=== PATIENT | male | born 1975 | race Caucasian/White ===

== ENCOUNTER 2020-07-24 12:48 | Outpatient (CLI) | payer BC, SELFPAY ==
--- NOTE | 2020-07-24 12:50 | ECG_ITS ---
Measurements Intervals [place] Rate: 72 P: 63 MT: 166 QRS: 55 QRSD: 89 T: 46 QT: 359 QTc: 395 Interpretive Statements SINUS RHYTHM BASELINE ARTIFACT- I, II, III, AVR, AVL, AVF NORMAL ECG Electronically Signed On 07-24-2020 13:13:02 TERRITORY SALES CONSULTANT by Sergio Matute D.O.
[2020-07-24 13:27] LABS: Alanine Aminotransferase 30 U/L (4-50); Albumin Level 4.7 g/dL (3.5-5.1); Alkaline Phosphatase 47 U/L (38-126); Amylase 66 U/L (30-110); Aspartate Amino Transferase 26 U/L (17-59); Bilirubin,Total 0.9 mg/dL (0.2-1.3); Lipase 162 U/L (23-300)
== END 2020-07-24 12:49 | disposition home or self-care (01) ==
PROVIDERS: PCP Family Medicine; Visit Provider Surgery
DX: K82.4 Cholesterolosis of gallbladder (principal); I10 Essential (primary) hypertension; Z01.818 Encounter for other preprocedural examination
CPT/HCPCS: 36415; 80076; 82150; 83690; 86850; 86900; 86901; 93005

== ENCOUNTER 2020-07-26 00:31 | Outpatient (CLI) | payer BC, SELFPAY ==
[2020-07-26 17:38] LABS: SARS-CoV-2 RNA PCR Negative
== END 2020-07-26 00:32 | disposition home or self-care (01) ==
LOC: ANHCOVIDDT 00:31
PROVIDERS: PCP Family Medicine; Visit Provider Surgery
DX: K82.4 Cholesterolosis of gallbladder (principal); Z01.818 Encounter for other preprocedural examination; Z20.822 Contact with and (suspected) exposure to COVID-19
CPT/HCPCS: C9803; U0003; U0005

== ENCOUNTER 2020-07-29 01:59 | Day surgery (SDC) | payer BC, SELFPAY ==
[2020-07-22 16:04] VITALS: BMI 27.6
[2020-07-29] VITALS (8 sets, daily range): BP systolic 107–137; BP diastolic 54–86; PULSE 52–98; RESP 12–21; TEMP 36.6; O2SAT 92–100
[2020-07-29] MEDS: ACETAMINOPHEN 500 MG TABLET 1000 MG PO (07:27)
[2020-07-29] MEDS: LACTATED RINGERS 1,000 ML 30 ML IV CONT ×2 (07:54→10:47)
[2020-07-29] MEDS: KETOROLAC 15 MG/ML VIAL (*BKC) IV PUSH (07:58)
--- NOTE | 2020-07-29 08:42 | P.PNAN_ITS ---
Anes - Initial Pre Proc Eval Procedure: Operation Date: 07/29/20 09:00 Proposed Procedures p Laparoscopic Cholecystectomy - Rl Moreland DO Date/Time: 07/29/20 08:42 Surgeon: Rl Moreland DO Pre Op Diagnosis: Right Upper Quadrant Pain Patient Data Age: 45 Gender: M Height: 5 ft 7 in Weight: 83.8 kg Last Vital Signs Temp 97.9 F 07/29/20 07:02 Pulse 73 07/29/20 07:02 Resp 14 07/29/20 07:02 BP 133/81 07/29/20 07:02 Pulse Ox 100 07/29/20 07:02 Allergies Allergy/AdvReac Type Severity Reaction Status Date / Time naproxen [From Naprosyn] AdvReac Mild Abdominal Verified 07/29/20 07:18 Pain Home Medications Medication Instructions Recorded Confirmed Type lisinopril 10 mg tablet 10 mg PO HS 06/25/20 07/29/20 History propranolol 10 mg tablet 10 mg PO TID PRN 06/25/20 07/29/20 History Patient hx anesthesia problems: none Family hx anesthesia problems: none PMFSH Past Medical History Medical History High cholesterol History of thyroid disorder Hypertension Surgical History Surgical History History of appendectomy History of elbow surgery ulnar nerve right elbow History of eye surgery History of tonsillectomy History of vasectomy Family History Family History Father Family history of malignant neoplasm Family history of suicide Grandparent Family history of malignant neoplasm Hypertension Other Depression Family history of mental disorder Family history of rheumatoid arthritis Social History Social History Smoking status: Never smoker Second hand tobacco smoke exposure: No Alcohol intake: former Living arrangements: with family 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 Questions were solicited and answers provided to the satisfaction of the patient/family/POA.
--- NOTE | 2020-07-29 09:21 | SUR.PREOP ---
0830 pt updated delay in procedure.
--- NOTE | 2020-07-29 09:30 | WPDHPUPDATE1 ---
History and Physical Update Update Date/Time: 07/29/20 09:30 History and Physical has been reviewed, including an updated exam of the patient. Since being seen in office, patient has decided he wants to proceed with surgery. I have recommended laparoscopic cholecystectomy, possible open. Risks, benefits, and alternatives have been discussed and questions answered. Patient agrees to proceed with procedure.
[2020-07-29] MEDS: ceFAZolin 2 GM/D5W 50 ML 2 GM/50 ML BAG IVPB (09:52)
--- NOTE | 2020-07-29 09:56 | SUR.PREOP ---
0950 taken to bathroom to void
[2020-07-29] MEDS: BUPIVACAINE/EPINEPHRINE 0.5% 10 ML VIAL 30 ML INFILTRATE (10:07)
--- NOTE | 2020-07-29 10:40 | PM.PROC ---
Procedure Note - Detailed Date of procedure: 07/29/20 Pre-op diagnosis: Right Upper Quadrant Pain, Gallbladder polyp Post-op diagnosis: same Procedure performed: Laparoscopic Cholecystectomy Description of procedure: Procedure as well as risks, benefits, and alternatives were discussed with patient. Written consent was obtained and placed in chart prior to procedure. The patient was brought back to surgical suite. Patient was placed in supine position on operating table. Time-out was done to confirm patient and procedure. Patient was then intubated by the anesthesia department. Abdomen was prepped and draped in sterile fashion using chlorhexidine prep. 0.5% bupivacaine with epinephrine was infiltrated at each site of incision. An 11 millimeter vertical incision was made at the inferior portion of the umbilicus using a 15 blade scalpel. Blunt dissection was carried down to the linea alba. The linea alba was then incised using a 15 blade scalpel. The peritoneum was then bluntly entered. An 11 millimeter trocar was inserted and cabon dioxied insuflation was used to create a pneumoperitoneum. The camera was inserted and the abdomen was inspected. The patient was placed in reverse Trendelenberg position and rotated slightly to the left. A 5 millimeter incision was made in the epigastric region, and a 5 millimeter trocar was inserted under direct visualization. Two 5 millimeter incisions were made in the right upper quadrant, and two 5 millimeter trocars were inserted under direct visualization. The gallbladder was identified and grasped at the fundus and retracted superiorly. It was then grasped at the infundibulum retracted laterally. Careful dissection around the neck of the gallbladder was performed using blunt dissection with a [place] grasper and hook electrocautery. The cystic duct was identified, and a window was created behind it. The cystic artery was also identified and a window was created behind it. The critical view of safety was identified, visualizing the cystic duct running directly into the neck of the gallbladder, and the cystic artery running directly into the wall of the gallbladder. A 5 millimeter clip claims vice president was then used to place 2 clips proximally and 1 clip distally on both the cystic duct and cystic artery. They were then both transected using endoscopic scissors. Once safely away from the yeni hepatitis, the gallbladder was dissected free from the liver bed using hook electrocautery. Hemostasis was achieved along the way. The gallbladder was removed completely and then removed through the subxiphoid port. The liver bed was then inspected. Hemostasis appeared adequate, and our clips appeared secure. The area was gently irrigated with sterile saline. No other abnormalities were seen. The patient was flattened out in bed, and 1 final inspection was made around the abdominal cavity. The ports were then removed under direct visualization, the camera was removed, and the pneumoperitoneum was released. The fascia of the umbilical incision was approximated using an 0 Vicryl [id number] suture. The skin of the incisions was approximated using 4-0 Monocryl subcuticular sutures. Exofin glue was applied on top. The patient was then awakened from anesthesia, extubated, and transferred to recovery. Anesthesia: GETA and local (0.5% bupivicaine with epinephrine) Surgeon: Rl Moreland DO Estimated blood loss (mL): 5 Pathology: yes Complications: No immediate complications Condition: stable Disposition: same day Findings: This is a 45-year-old man who presented with intermittent right upper quadrant pain over the past several years. He did not recognize any foods that triggered his pains, but he continues to have intermittent symptoms. A gallbladder ultrasound showed evidence of gallbladder sludge and a gallbladder polyp. Discussions were made with the patient about treatment options, a and decision was made to proceed wi
[2020-07-29] MEDS: fentaNYL CITRATE INJ (*CRX) 100 MCG/2 ML VIAL 25 MCG IV PUSH ×4 (11:06→11:26)
[2020-07-29] MEDS: oxyCODONE HCL (*CRX) 5 MG TAB IR PO (11:48)
== END 2020-07-29 12:37 | disposition home or self-care (01) ==
PROVIDERS: PCP Family Medicine; Visit Provider Surgery
PROC: 0FT44ZZ Resection of Gallbladder, Percutaneous Endoscopic Approach (ICD-10-PCS; CPT 47562; principal; 2020-07-29 09:00)
DX: K81.1 Chronic cholecystitis (principal); I10 Essential (primary) hypertension
CPT/HCPCS: 47562; 88304; A9270; J0690; J1100; J1885; J2250; J2405; J2704; J2710; J3010; J7030; J7120

== ENCOUNTER → 2021-07-26 00:15 | Outpatient (CLI) | payer BC, SELFPAY ==
[2021-07-26 20:22] LABS: SARS-CoV-2 RNA PCR Positive
== END ==
PROVIDERS: PCP Family Medicine; Visit Provider Family Medicine
DX: U07.1 COVID-19 (principal)
CPT/HCPCS: C9803; U0003; U0005

== ENCOUNTER 2022-06-20 10:43 | Emergency (ER) | payer BC, SELFPAY ==
[2022-06-20 10:55] VITALS: BP 144/85; PULSE 81; RESP 24; TEMP 36.4
--- NOTE | 2022-06-20 11:14 | ED.URI ---
HPI - URI/Sore Throat General Chief Complaint: Upper Respiratory Infection Stated Complaint: Sore Throat,Lt Ear Irritation Time Seen by Provider: 06/20/22 11:14 History of Present Illness HPI Narrative: 46-year-old male presented for complaint of sore throat for about 4 days and left irritation. He also endorses mild sinus congestion and drainage. He reports his child tested positive for strep about 2 weeks ago. He is taking ibuprofen for symptoms. He denies cough, shortness cough, wheezing, nausea, vomiting diarrhea, fevers or chills at this time. Related Data Home Medications Medication Instructions Recorded Confirmed lisinopril 10 mg tablet 10 mg PO HS 06/25/20 06/20/22 propranolol 10 mg tablet 10 mg PO TID PRN PALPITATIONS 06/25/20 06/20/22 suvorexant 20 mg tablet (Belsomra) 20 mg PO HS 06/20/22 06/20/22 Allergies Allergy/AdvReac Type Severity Reaction Status Date / Time naproxen [From Naprosyn] AdvReac Mild Abdominal Verified 06/20/22 10:59 Pain Review of Systems Review of Systems: CONSTITUTIONAL: Denies body aches, fever, chills, or sweats. EYES: Denies visual changes, redness, or discharge. ENT: Per HPI CARDIOVASCULAR: Denies chest pain, palpitations, or edema. RESPIRATORY: Denies dyspnea. GASTROINTESTINAL: Denies abdominal pain, nausea, vomiting, or diarrhea. SKIN: Denies rash, itching, or wounds. MUSCULOSKELETAL: Denies back pain, joint pain, or myalgia. NEUROLOGIC: Denies headache PMFSH Past Medical History Medical History High cholesterol History of thyroid disorder Hypertension Surgical History Surgical History History of appendectomy History of elbow surgery ulnar nerve right elbow History of eye surgery History of tonsillectomy History of vasectomy Hx laparoscopic cholecystectomy 07/29/20 Family History Family History Father Family history of malignant neoplasm Family history of suicide Grandparent Family history of malignant neoplasm Hypertension Other Depression Family history of mental disorder Family history of rheumatoid arthritis Social History Social History Smoking status: Never smoker Second hand tobacco smoke exposure: No Alcohol intake: former 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 EYES: conjunctivae clear ENT: Mucous membranes moist. TMs pearly mendoza with normal light reflex bilaterally; no tragal tenderness. Oropharynx mildly erythematous without lesions. Tonsils absent. No drooling, no hoarseness, no trismus, uvula midline. No tripod positioning, hot potato voice, or soft palate swelling. NECK: Supple. No lymphadenopathy CHEST: Clear to auscultation, breath sounds equal. No respiratory distress, speaks in full sentences. HEART: Regular rate and rhythm. No murmur heard. SKIN: Warm, dry, no rash. NEURO: Alert and oriented x3. Course Course Emergency Course: Patient is aware of diagnosis, understands and agrees to treatment plan. Anticipatory guidance given. Patient agrees to follow-up as directed and is aware of reasons to seek care at the emergency department. Portions of this record may have been created with voice recognition software Level of Care: Express Care Visit Vital Signs Vital signs: Vital Signs Temperature 97.5 F L 06/20/22 10:55 Pulse Rate 81 06/20/22 10:55 Respiratory Rate 24 H 06/20/22 10:55 Blood Pressure 144/85 H 06/20/22 10:55 Oxygen Delivery Room Air 06/20/22 10:55 Temperature 97.5 F L 06/20/22 10:55 Pulse Rate 81 06/20/22 10:55 Respiratory Rate 24 H 06/20/22 10:55 Blood Pressure 144/85 H 06/20/22 10:55 Oxygen Delivery Room Air
== END 2022-06-20 11:25 | disposition home or self-care (01) ==
PROVIDERS: Emergency Provider Nurse Practitioner Family; PCP Nurse Practitioner Adult Health
DX: J06.9 Acute upper respiratory infection, unspecified (principal); E78.00 Pure hypercholesterolemia, unspecified; I10 Essential (primary) hypertension
CPT/HCPCS: 87081; 99212; G0463

== ENCOUNTER 2022-07-14 08:06 | Emergency (ER) | payer BC, SELFPAY ==
--- NOTE | ~2022-07-14 | XR_ITS ---
EXAMINATION: XR finger 4th RT min 2V DATE: 07/14/2022 08:30 INDICATION: Concern for infection at the right fourth digit 5 days post laceration TECHNIQUE: Dorsal palmar, lateral and 2 oblique views of the right fourth digit were obtained COMPARISON: None FINDINGS: Alignment is normal. No fracture. Joint spaces are normal. No cortical erosions to suggest osteomyeli tis. Asymmetric soft tissue swelling at the palmar/radial aspect of the distal phalanx of the right f ourth digit. No soft tissue gas or radiopaque foreign bodies. IMPRESSION: 1. No osseous abnormality. Reviewed, dictated and finalized at location A. M INSTALLER IMPRESSION: 1. No osseous abnormality.
[2022-07-14 08:13] VITALS: BP 124/84; PULSE 100; RESP 16; TEMP 36.6; O2SAT 100
--- NOTE | 2022-07-14 08:23 | ED.WOUNDLAC ---
HPI - Wound/Laceration General Chief Complaint: Wound/Laceration Stated Complaint: Cut Finger Rt Hand Time Seen by Provider: 07/14/22 08:18 Source: patient Mode of arrival: ambulatory Limitations: no limitations History of Present Illness HPI narrative: 46 y/o male presented for c/o laceration to right ring finger that occurred 5 days ago. 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 Reports 'profuse bleeding' at the time, so he used home super glue. Denies cleaning it prior, stating he 'thought the blood would internally cleanse it.' States glue came off a few days ago and he reapplied another layer of super glue. He has kept a bandaid on the site since the wound occurred. Now reports mild swelling and darkened discoloration surrounding the wound, and is concerned for infection. Denies warmth, redness, drainage, numbness, tingling or weakness to the finger. Patient completed a course of augmentin 3 days ago as prescribed 07/04 for URI. Last tetanus 2019. Related Data Home Medications Medication Instructions Recorded Confirmed lisinopril 10 mg tablet 10 mg PO HS 06/25/20 07/14/22 propranolol 10 mg tablet 10 mg PO TID PRN PALPITATIONS 06/25/20 07/14/22 suvorexant 20 mg tablet (Belsomra) 20 mg PO HS 06/20/22 07/14/22 Allergies Allergy/AdvReac Type Severity Reaction Status Date / Time naproxen [From Naprosyn] AdvReac Mild Abdominal Verified 07/14/22 08:08 Pain Review of Systems Review of Systems: CONSTITUTIONAL: Denies body aches, fever, chills, or sweats. EYES: Denies visual changes, redness, or discharge. ENT: Denies rhinorrhea, congestion CARDIOVASCULAR: Denies chest pain, palpitations, or edema. RESPIRATORY: Denies cough or dyspnea. GASTROINTESTINAL: Denies abdominal pain, nausea, vomiting, or diarrhea. SKIN: per HPI MUSCULOSKELETAL: Denies back pain, joint pain, or myalgia. NEUROLOGIC: Denies headache, numbness, tingling, or weakness. PMFSH Past Medical History Medical History High cholesterol History of thyroid disorder Hypertension Surgical History Surgical History History of appendectomy History of elbow surgery ulnar nerve right elbow History of eye surgery History of tonsillectomy History of vasectomy Hx laparoscopic cholecystectomy 07/29/20 Family History Family History Father Family history of malignant neoplasm Family history of suicide Grandparent Family history of malignant neoplasm Hypertension Other Depression Family history of mental disorder Family history of rheumatoid arthritis Social History Social History Smoking status: Never smoker Second hand tobacco smoke exposure: No Alcohol intake: former 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 Please see nursing chart for further information. There is no relevant family history pertinent to the presenting complaint Exam Narrative: GENERAL: Well-appearing EYES: conjunctivae clear, and EOMI. ENT: Mucous membranes moist. Oropharynx without edema, erythema or lesions. NECK: Supple. No lymphadenopathy CHEST: Clear to auscultation. HEART: Regular rate and rhythm. SKIN: Warm, dry. Right 4th digit linear lac 1.5cm to radial aspect of finger, edges are not approximated, appears to have clear firm substance over the site; mild swelling and purple discoloration surrounding the site; no active drainage or warmth, cap refill <3 seconds, sensation intact. full rom. NEURO: Alert and oriented x3. Course Course Emergency Course: Patient is aware of diagnosis, understands and a
== END 2022-07-14 08:58 | disposition home or self-care (01) ==
PROVIDERS: Emergency Provider Nurse Practitioner Family
DX: S61.214A Laceration without foreign body of right ring finger without damage to nail, initial encounter (principal); W26.8XXA Contact with other sharp object(s), not elsewhere classified, initial encounter; E78.00 Pure hypercholesterolemia, unspecified; I10 Essential (primary) hypertension; Z98.52 Vasectomy status
CPT/HCPCS: 73140; 99213; G0463

== ENCOUNTER 2023-06-29 10:33 | Outpatient (CLI) | payer BC, SELFPAY ==
--- NOTE | ~2023-06-29 | XR_ITS ---
EXAMINATION: XR lumbar spine min 4V DATE: 06/29/2023 11:01 INDICATION: Low back pain, unspecified. TECHNIQUE: 5 views of lumbar spine were obtained. COMPARISON: CT abdomen and pelvis 10/14/2015 FINDINGS: There is hypolordosis of lumbar spine. There is mild chronic anterior wedging of L1 vertebr al body. There is mildly decreased disc height at L4-L5. There are endplate osteophytes at most level s. There is multilevel facet joint osteoarthritis, severe bilaterally at L4-L5 and L5-S1. IMPRESSION: 1. Mild lumbar spondylosis. Reviewed, dictated and finalized at location E. ECTOR BRAKE LINING IMPRESSION: 1. Mild lumbar spondylosis.
== END 2023-06-29 10:34 | disposition home or self-care (01) ==
PROVIDERS: PCP Nurse Practitioner Family; Visit Provider Nurse Practitioner Family
DX: M79.604 Pain in right leg (principal); M79.605 Pain in left leg; R29.898 Other symptoms and signs involving the musculoskeletal system; M47.896 Other spondylosis, lumbar region
CPT/HCPCS: 72110

== ENCOUNTER 2023-07-12 06:32 | Outpatient (CLI) | payer BC, SELFPAY ==
--- NOTE | ~2023-07-12 | MR_ITS ---
MRI of the lumbar spine Clinical History: Back pain Technique: Axial T2-weighted images, and sagittal T1-weighted, T2-weighted, and and T2 fat-sat images were acquired. Findings: There is no fracture or subluxation of the lumbar spine. Vertebral bodies maintain normal h eight and alignment. No suspicious bone marrow signal abnormality seen. At L1-L2, there is minimal disc bulge and mild facet arthropathy. No central canal stenosis or defini te neural foraminal narrowing. At L2-L3, there is minimal disc bulge and mild to moderate facet arthropathy. No central canal stenos is or neural foraminal narrowing. L3-L4, there is mild disc bulge and mild facet arthropathy. No central canal stenosis. There is mild bilateral neural foraminal narrowing, left worse than right. At L4-L5, there is disc bulge and moderate facet arthropathy. No central canal stenosis. There is mod erate to advanced bilateral neural foraminal narrowing. At L5-S1, there is mild disc bulge and moderate facet arthropathy. No central canal stenosis. There i s moderate right neural foraminal narrowing, and mild to moderate left neural foraminal narrowing. Paravertebral soft tissues are unremarkable. Impression: Multilevel neural foraminal narrowing, as detailed above. Reviewed, dictated and finalized at location . 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
== END 2023-07-12 06:33 | disposition home or self-care (01) ==
PROVIDERS: PCP Nurse Practitioner Family; Visit Provider Nurse Practitioner Family
DX: M54.50 Low back pain, unspecified (principal); M79.604 Pain in right leg; M79.605 Pain in left leg; R29.898 Other symptoms and signs involving the musculoskeletal system; M51.36 Other intervertebral disc degeneration, lumbar region
CPT/HCPCS: 72148

== ENCOUNTER 2023-08-04 08:34 | Outpatient (CLI) | payer BC, SELFPAY ==
--- NOTE | 2023-08-06 11:58 | WPDHOLTEREM ---
Holter/Event Monitor Holter/Event Monitor Date of procedure: 08/04/23 Holter/Event Procedure: 24 Hr Holter Monitor Indications: Palpitations Conclusion: 1. 24 hour holter monitor on 08/04/23. 2. Underlying rhythm is sinus rhythm. HR range 50-171 bpm; average HR 81 bpm. HR at 171 bpm was at 01:52. 3. There are 45 premature supraventricular complex, 2 supraventricular couplets and 1 supraventricular triplet. No supraventricular tachycardia. 4. There are 590 premature ventricular complexes. No ventricular tachycardia. 5. No sinoatrial or atrioventricular blocks. No significant pauses greater than 2 seconds. 6. Patient reports symptoms of skip beat, pounding heart which demonstrate sinus rhythm, HR range 70-83 bpm and 1 PVC.
== END 2023-08-04 08:35 | disposition home or self-care (01) ==
LOC: ANHCARD 08:35
PROVIDERS: PCP Nurse Practitioner Family; Visit Provider Nurse Practitioner Family
DX: R00.2 Palpitations (principal); I10 Essential (primary) hypertension
CPT/HCPCS: 93225; 93226

== ENCOUNTER 2023-10-08 09:36 | Outpatient (CLI) | payer BC, SELFPAY ==
--- NOTE | 2023-10-12 14:20 | WPDHOMESLEEP ---
Sleep Study - Home Unattended Date of Study: 10/08/23 Ordering Provider: Sergio Matute DO Interpreting Provider: Ashely Coleman DO Home Sleep Study Type: Watch PAT Height: 1.7 m Weight: 78.018 kg Body Mass Index: 26.9 Neck Circumference (inches): 15 [place]: 7 Reason for Sleep Study Heart palpitations Sleep History The patient is a 48-year-old male with hypertension, insomnia, anxiety, heart palpitations, Gary's thyroiditis, degenerative disc disease of lumbar spine and erectile dysfunction that had a sleep study ordered by his tree expert for evaluation of sleep apnea. The patient rarely awakens from sleep short of breath. He denies awakening at night with heartburn, belching or cough. He occasionally snores but it is never loud enough that others complain. He occasionally has trouble sleeping when he has a cold. He occasionally wakes up gasping for air throughout the night. He denies having breathing problems at night observed by himself or others. He denies sweating excessively at night. He frequently has heart palpitations or irregular heartbeats during the night. He rarely falls asleep during the day but never while driving. He denies cataplexy. He rarely has trouble at school or work due to sleepiness. He rarely feels unable to move while waking up or falling asleep. He occasionally experiences vivid dreamlike scenes upon awakening or falling asleep. He rarely feels afraid of going to sleep. He frequently has nightmares. He frequently remembers his dreams. He frequently has thoughts racing through his mind. He occasionally feels sad or depressed. He frequently has anxiety. He rarely has muscular tension. He rarely notices parts of his body jerk. He denies kicking during the night. He denies having crawling and aching feelings in his legs and denies having leg pain during the night. He occasionally grinds his teeth during sleep but never awakens with morning jaw pain. He is frequently bothered by pain during the day but rarely awakened by pain during the night. He occasionally wakes up feeling stiff in the morning. He denies waking up with sore or achy muscles. He frequently wakes up with pain in the neck, spine and other joints. He goes to bed at 9:00 p.m. on weekdays and between 10 30-11 p.m. on the weekends. It takes him 20-30 minutes to fall asleep. He wakes up twice throughout the night to urinate and is able to fall back asleep within 5 minutes. He will occasionally wake up screaming. He wakes up at 3:50 a.m. on weekdays and 7:00 a.m. on the weekends. He typically gets 6.5 hours of sleep per night. He will stay in bed for a few minutes after waking up in the morning. He currently lives with his and 5 children. He denies consuming any caffeinated beverages within 2 hours of bedtime. He denies engaging in physical exercise before bedtime. He will read before falling asleep. He denies watching television before falling asleep. He denies taking naps in the afternoon the evening He consumes 1 cup of caffeinated beverage 3 times per week. He denies tobacco, alcohol and recreational drug use. [facility] Past Medical History Medical History Anxiety BMI 27.0-27.9,adult Bulging of lumbar intervertebral disc Chronic cholecystitis without calculus Encounter for surgical aftercare following surgery on the digestive system Encounter to establish care Gallbladder polyp Gary's disease High cholesterol History of herniated intervertebral disc History of thyroid disorder Hyperlipidemia Hypertension Insomnia Low back pain radiating to both legs Osteoarthritis of facet joint of lumbar spine severe bilaterally at L4-L5 and L5-S1 Palpitation RUQ abdominal pain Transient right leg weakness Surgical History Surgical History History of appendectomy History of elbow surgery ulnar ner
[2023-10-12 14:21] VITALS: BMI 26.9
== END 2023-10-11 12:54 | disposition home or self-care (01) ==
PROVIDERS: PCP Nurse Practitioner Family; Visit Provider Internal Medicine Cardiovascular Disease
DX: G47.10 Hypersomnia, unspecified (principal); G47.9 Sleep disorder, unspecified; I10 Essential (primary) hypertension; F39 Unspecified mood [affective] disorder
CPT/HCPCS: 95800

== ENCOUNTER 2023-11-19 08:34 | Outpatient (CLI) | payer BC, SELFPAY ==
--- NOTE | ~2023-11-19 | US_ITS ---
Limited Abdominal Sonogram: Real-time sonographic imaging of the right upper quadrant was performed. Clinical History: Right upper quadrant pain Findings: The liver appears normal with no evidence of bile duct dilatation. Probable subtle 1.3 cm hyperechoic hepatic mass, most likely hemangioma. Main portal vein demonstrates normal direction of f low. The gallbladder is well distended, and appears normal with no evidence of gallstone or wall thic kening. The common bile duct measures 6 mm. The visualized pancreas, aorta, and IVC are unremarkable . Right kidney measures 10.7 cm in length, without hydronephrosis. Impression: Suspected 1.3 cm subtle hyperechoic hepatic lesion, most likely hemangioma. Consider follow-up MR to confirm as indicated. Reviewed, dictated and finalized at [facility]. Impression: Suspected 1.3 cm subtle hyperechoic hepatic lesion, most likely hemangioma. Con publisher assistant follow-up MR to confirm as indicated.
== END 2023-11-19 08:35 ==
LOC: MICIMG 08:35
PROVIDERS: PCP Nurse Practitioner Family; Visit Provider Nurse Practitioner Family
DX: R10.11 Right upper quadrant pain (principal); Z90.49 Acquired absence of other specified parts of digestive tract; K76.9 Liver disease, unspecified
CPT/HCPCS: 76705

== ENCOUNTER 2023-12-03 08:33 | Outpatient (CLI) | payer BC, SELFPAY ==
--- NOTE | ~2023-12-03 | MR_ITS ---
EXAMINATION: MR abdomen wo/w con DATE: 12/03/2023 09:56 INDICATION: Abnormal findings on diagnostic imaging. Abdominal pain. Liver mass. TECHNIQUE: Magnetic resonance imaging (MRI) of the abdomen was performed without and with 16 mL Multi Kalyn intravenous contrast. COMPARISON: Abdomen ultrasound 11/19/2023, CT abdomen and pelvis 10/14/2015 FINDINGS: There are 11 mm and 15 mm masses in the liver with interrupted peripheral puddling of contrast, consi stent with hemangiomas. There is a 5 mm cyst in the liver. The gallbladder is absent. The spleen, humphrey creas, adrenal glands, and kidneys are normal. There are no dilated loops of bowel. IMPRESSION: 1. Hemangiomas in the liver. Reviewed, dictated and finalized at location A.
== END 2023-12-03 08:34 | disposition home or self-care (01) ==
PROVIDERS: PCP Nurse Practitioner Family; Visit Provider Nurse Practitioner Family
DX: R10.11 Right upper quadrant pain (principal); R93.2 Abnormal findings on diagnostic imaging of liver and biliary tract; D18.03 Hemangioma of intra-abdominal structures
CPT/HCPCS: 74183; A9577

== ENCOUNTER 2023-12-13 09:06 | Outpatient (CLI) | payer BC, SELFPAY ==
--- NOTE | ~2023-12-13 | US_ITS ---
Thyroid ultrasound. Clinical History: Thyroid nodule COMPARISON: 04/02/2015 Findings: Real-time sonography of the thyroid gland was performed. The right lobe measures 5.9 x 2.0 x 1.9 cm. The left lobe measures 6.0 x 2.0 x 2.2 cm. The isthmus is 1 mm in AP diameter. Thyroid parenchyma is diffusely mildly heterogeneous, but no discrete nodule is identified. Impression: Enlarged, heterogeneous thyroid gland, without discrete nodule. Correlate with thyroid function tests as indicated.. Reviewed, dictated and finalized at location M. Impression: Enlarged, heterogeneous thyroid gland, without discrete nodule. Correlate with thyroid function tests as indicated..
== END 2023-12-13 09:07 ==
LOC: MICIMG 09:07
PROVIDERS: PCP Nurse Practitioner Family; Visit Provider Internal Medicine
DX: E04.1 Nontoxic single thyroid nodule (principal); E06.3 Autoimmune thyroiditis
CPT/HCPCS: 76536

== ENCOUNTER 2024-01-12 13:24 | Outpatient (CLI) | payer BC, SELFPAY ==
--- NOTE | ~2024-01-12 | NM_ITS ---
EXAMINATION: NM thyroid scan w uptake DATE: 01/13/2024 14:04 INDICATION: Assess for toxic thyroid nodule COMPARISON: None. TECHNIQUE: 349 microcuries I-123 was administered orally in capsule form. Scintigraphic images of th e thyroid gland were obtained at 24 hours. Thyroid uptake was calculated by the technologist. FINDINGS: The thyroid uptake is 15.1% (normal 10-30%), with the right lobe measuring 7.3% uptake and the left 8 .1%. There is no focal area of decreased or increased activity to suggest hypofunctioning or hyperfun ctioning nodule. IMPRESSION: 1. Normal thyroid scintigraphy and 24-hour iodine uptake. Reviewed, dictated and finalized at location A.
== END 2024-01-12 13:25 | disposition home or self-care (01) ==
PROVIDERS: PCP Nurse Practitioner Family; Visit Provider Internal Medicine
DX: E04.1 Nontoxic single thyroid nodule (principal); E05.90 Thyrotoxicosis, unspecified without thyrotoxic crisis or storm
CPT/HCPCS: 78014; A9516

== ENCOUNTER 2024-02-02 07:56 | Outpatient (CLI) | payer BC, SELFPAY ==
--- NOTE | ~2024-02-02 | XR_ITS ---
EXAMINATION: XR UGI wo kub DATE: 02/02/2024 08:43 INDICATION: Right upper quadrant abdominal pressure. Epigastric abdominal pain. TECHNIQUE: The patient drank thick barium, gas-producing crystals, and thin barium. Fluoroscopy of th e esophagus, stomach, and proximal small bowel was performed. Fluoroscopy exposure time was 0.6 minut es. The total number of images was 228. Total dose-area product was 2.371 Gy-cm^2. COMPARISON: Abdomen MRI 12/03/2023 FINDINGS: There is no mass or stricture of the esophagus. Esophageal motility is normal. There is no hiatal hernia. There was no gastroesophageal reflux with provocative maneuvers. The stomach and proxi mal small bowel show normal folding patterns. Surgical clips in the right upper quadrant are likely f rom cholecystectomy. IMPRESSION: 1. Normal upper gastrointestinal series. Reviewed, dictated and finalized at location A.
== END 2024-02-02 07:57 | disposition home or self-care (01) ==
LOC: ANHIMG 07:58
PROVIDERS: PCP Nurse Practitioner Family; Visit Provider Nurse Practitioner
DX: R10.11 Right upper quadrant pain (principal); R10.13 Epigastric pain
CPT/HCPCS: 74240

== ENCOUNTER 2024-02-22 02:13 | Day surgery (SDC) | payer BC, SELFPAY ==
[2024-02-04 10:57] VITALS: BMI 26.9
[2024-02-22 06:37] VITALS: BP 139/83; PULSE 94; RESP 20; TEMP 35.9; O2SAT 100; BMI 28.3
[2024-02-22] MEDS: LACTATED RINGERS 1,000 ML 150 ML IV CONT (06:48)
--- NOTE | 2024-02-22 07:20 | PM.HPGS ---
History of Present Illness History of Present Illness Consent: Risks, benefits, and alternatives have been discussed and questions answered. Patient agrees to proceed with procedure. Chief complaint: neoplasm screening, Epigastric pain, RUQ pain Narrative: Christiano Beckham is a 48 year old male here for first screening colonoscopy, also intermittent ruq pain even after cholecystectomy. Review of Systems Review of Systems: All systems reviewed & are unremarkable except as noted in HPI and below PMFSH Past Medical History Medical History (Updated 01/12/24 @ 06:23 by Shai Richey MD) Abnormal ultrasound of liver Anxiety BMI 27.0-27.9,adult Bulging of lumbar intervertebral disc Chronic cholecystitis without calculus Depression Encounter for surgical aftercare following surgery on the digestive system Encounter to establish care Gallbladder polyp Gary's disease Hemangioma of liver High cholesterol History of herniated intervertebral disc History of thyroid disorder Hyperlipidemia Hypertension Insomnia Liver cyst Low back pain radiating to both legs Osteoarthritis of facet joint of lumbar spine severe bilaterally at L4-L5 and L5-S1 Palpitation RUQ abdominal pain Testicular pain Transient right leg weakness Surgical History Surgical History History of appendectomy History of elbow surgery ulnar nerve right elbow History of eye surgery History of tonsillectomy History of vasectomy Hx laparoscopic cholecystectomy 07/29/20 Family History Family History Father Family history of malignant neoplasm Family history of suicide Depression Grandparent Family history of malignant neoplasm Hypertension Other Family history of mental disorder Family history of rheumatoid arthritis Social History Social History (Updated 01/11/24 @ 14:51 by Ale Peralta MA) Smoking status: Never smoker Second hand tobacco smoke exposure: No Alcohol intake: never Substance use: never Substance use type: does not use Do You Feel Safe in your Home?: Yes Lack of Transportation: No Lack of Food: Never True Current Housing: I Have Housing Concerned About Future Housing: No Difficulty Paying Gas/Electric Bills: No Difficulty Paying for Meds: No Currently Unemployed: No Education: Bachelor's Degree Difficulty w/ Childcare or Family Care: No Living arrangements: with family Occupation/Education: occupation 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 Spiritual care concerns: No Meds Home Medications and Allergies Home Medications Medication Instructions Recorded Confirmed Type lisinopril 10 mg tablet 10 mg PO HS #30 tabs 06/24/23 02/22/24 Rx tadalafil 20 mg tablet 20 mg PO DAILY PRN Erectile 06/24/23 02/22/24 History Dysfunction escitalopram oxalate 10 mg tablet 10 mg PO DAILY #30 tabs 11/11/23 02/22/24 Rx (Lexapro) buspirone 10 mg tablet 20 mg PO TID #180 tabs 11/30/23 02/22/24 Rx bupropion HCl 150 mg 24 hr tablet, 150 mg PO QAM #30 tabs 01/11/24 02/22/24 Rx extended release (Wellbutrin XL) trazodone 100 mg tablet 50 - 100 mg PO QHS PRN insomnia 01/11/24 02/22/24 Rx #30 tabs Allergies Allergy/AdvReac Type Severity Reaction Status Date / Time naproxen [From Naprosyn] AdvReac Mild Abdominal Verified 02/22/24 06:36 Pain Vital Signs Vital Signs - 24 hr 02/22/24 06:37 Temperature 96.7 F L Pulse Rate 94 Respiratory Rate 20 Blood Pressure 139/83 Pulse Oximetry 100 Oxygen Delivery Room Air Exam Const: General: comfortable and no acute distress HENMT: Face/Nose/Sinus: Normal nares present Eyes: General: appearance normal, both eyes and all related structures Neck: Neck: no JVD Resp: Auscultation: clear to auscultation bilaterally Cardio: Rate: regular rate Rhythm: regular rhythm GI: Inspection: non
--- NOTE | 2024-02-22 07:23 | WPDANESEPPF ---
Anes - Initial Pre Proc Eval Procedure: Operation Date: 02/22/24 08:00 Proposed Procedures p Esophagogastroduodenoscopy&Screen Colon - Evert Balderrama MD Date/Time: 02/22/24 07:23 Surgeon: Evert Balderrama MD Pre Op Diagnosis: neoplasm screening, Epigastric pain, RUQ pain Patient Data Age: 48 Gender: M Height: 1.7 m Weight: 81.9 kg Last Vital Signs Temp 96.7 F L 02/22/24 06:37 Pulse 94 02/22/24 06:37 Resp 20 02/22/24 06:37 BP 139/83 02/22/24 06:37 Pulse Ox 100 02/22/24 06:37 O2 Del Method Room Air 02/22/24 06:37 Allergies Allergy/AdvReac Type Severity Reaction Status Date / Time naproxen [From Naprosyn] AdvReac Mild Abdominal Verified 02/22/24 06:36 Pain Home Medications Medication Instructions Recorded Confirmed Type lisinopril 10 mg tablet 10 mg PO HS #30 tabs 06/24/23 02/22/24 Rx tadalafil 20 mg tablet 20 mg PO DAILY PRN Erectile 06/24/23 02/22/24 History Dysfunction escitalopram oxalate 10 mg tablet 10 mg PO DAILY #30 tabs 11/11/23 02/22/24 Rx (Lexapro) buspirone 10 mg tablet 20 mg PO TID #180 tabs 11/30/23 02/22/24 Rx bupropion HCl 150 mg 24 hr tablet, 150 mg PO QAM #30 tabs 01/11/24 02/22/24 Rx extended release (Wellbutrin XL) trazodone 100 mg tablet 50 - 100 mg PO QHS PRN insomnia 01/11/24 02/22/24 Rx #30 tabs Patient hx anesthesia problems: none Family hx anesthesia problems: none Results Review: All pre-operative results and documents have been reviewed as part of the pre-operative evaluation. [facility] Past Medical History Medical History Abnormal ultrasound of liver Anxiety BMI 27.0-27.9,adult Bulging of lumbar intervertebral disc Chronic cholecystitis without calculus Depression Encounter for surgical aftercare following surgery on the digestive system Encounter to establish care Gallbladder polyp Gary's disease Hemangioma of liver High cholesterol History of herniated intervertebral disc History of thyroid disorder Hyperlipidemia Hypertension Insomnia Liver cyst Low back pain radiating to both legs Osteoarthritis of facet joint of lumbar spine severe bilaterally at L4-L5 and L5-S1 Palpitation RUQ abdominal pain Testicular pain Transient right leg weakness Surgical History Surgical History History of appendectomy History of elbow surgery ulnar nerve right elbow History of eye surgery History of tonsillectomy History of vasectomy Hx laparoscopic cholecystectomy 07/29/20 Family History Family History Father Family history of malignant neoplasm Family history of suicide Depression Grandparent Family history of malignant neoplasm Hypertension Other Family history of mental disorder Family history of rheumatoid arthritis Social History Social History Smoking status: Never smoker Second hand tobacco smoke exposure: No Alcohol intake: never Substance use: never Substance use type: does not use Do You Feel Safe in your Home?: Yes Lack of Transportation: No Lack of Food: Never True Current Housing: I Have Housing Concerned About Future Housing: No Difficulty Paying Gas/Electric Bills: No Difficulty Paying for Meds: No Currently Unemployed: No Education: Bachelor's Degree Difficulty w/ Childcare or Family Care: No Living arrangements: with family Occupation/Education: occupation 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
--- NOTE | 2024-02-22 07:40 | SUR.OPER ---
EGD end time 734, Colon start time 739
[2024-02-22 07:53] VITALS: BP 103/54; PULSE 79; RESP 33; O2SAT 99
[2024-02-22 08:03] VITALS: BP 109/66; PULSE 82; RESP 24; O2SAT 99
[2024-02-22 08:13] VITALS: BP 113/65; PULSE 71; RESP 23; O2SAT 99
== END 2024-02-22 08:28 | disposition home or self-care (01) ==
PROVIDERS: PCP Nurse Practitioner Family; Visit Provider Internal Medicine Gastroenterology
PROC: 0DJ08ZZ Inspection of Upper Intestinal Tract, Via Natural or Artificial Opening Endoscopic (ICD-10-PCS; CPT 43235; principal; 2024-02-22 08:00)
DX: Z12.11 Encounter for screening for malignant neoplasm of colon (principal); D12.2 Benign neoplasm of ascending colon; K64.8 Other hemorrhoids; K31.89 Other diseases of stomach and duodenum; I10 Essential (primary) hypertension; E78.00 Pure hypercholesterolemia, unspecified; G47.00 Insomnia, unspecified; F41.9 Anxiety disorder, unspecified; K81.1 Chronic cholecystitis; F32.A Depression, unspecified; E06.3 Autoimmune thyroiditis; E07.9 Disorder of thyroid, unspecified; Z98.890 Other specified postprocedural states; Z90.49 Acquired absence of other specified parts of digestive tract; Z86.018 Personal history of other benign neoplasm; Z80.9 Family history of malignant neoplasm, unspecified
CPT/HCPCS: 43239; 45385; 88305; J7120

== ENCOUNTER 2024-03-15 12:06 | Emergency (ER) | payer BC, SELFPAY ==
[2024-03-15 12:38] VITALS: BP 134/78; PULSE 88; RESP 16; TEMP 36.6; O2SAT 100
--- NOTE | 2024-03-15 12:50 | ED.URI ---
HPI - URI/Sore Throat General Chief Complaint: Upper Respiratory Infection Stated Complaint: sore throat History of Present Illness HPI Narrative: patient is a 48-year-old male, past medical history significant for hypertension and depression, presents urgent care with complaints of sore throat, otalgia and nasal congestion. He states his symptoms began approximately 11 days ago the last few days and then started to improve. He states that he did not fully resolve his symptoms before they return 3-4 days ago and have persistently worsened. He states his cough is nonproductive and worse at night, he does have a sensation of postnasal drip /drainage any now has some ear pain. He denies otorrhea. He has not had known fever. He he denies known sick contacts, he has not traveled. He is taking [id number] medications without much relief, prompting his visit. Related Data Home Medications Medication Instructions Recorded Confirmed tadalafil 20 mg tablet 20 mg PO DAILY PRN Erectile 06/24/23 03/15/24 Dysfunction Allergies Allergy/AdvReac Type Severity Reaction Status Date / Time naproxen [From Naprosyn] AdvReac Intermediate Abdominal Verified 03/15/24 12:25 Pain Review of Systems ENT: Comments: refer to [facility] Past Medical History Medical History Abnormal ultrasound of liver Anxiety BMI 27.0-27.9,adult Bulging of lumbar intervertebral disc Chronic cholecystitis without calculus Depression Encounter for surgical aftercare following surgery on the digestive system Encounter to establish care Gallbladder polyp Gary's disease Hemangioma of liver High cholesterol History of herniated intervertebral disc History of thyroid disorder Hyperlipidemia Hypertension Insomnia Liver cyst Low back pain radiating to both legs Osteoarthritis of facet joint of lumbar spine severe bilaterally at L4-L5 and L5-S1 Palpitation RUQ abdominal pain Testicular pain Transient right leg weakness Surgical History Surgical History History of appendectomy History of elbow surgery ulnar nerve right elbow History of eye surgery History of tonsillectomy History of vasectomy Hx laparoscopic cholecystectomy 07/29/20 Family History Family History Father Family history of malignant neoplasm Family history of suicide Depression Grandparent Family history of malignant neoplasm Hypertension Other Family history of mental disorder Family history of rheumatoid arthritis Social History Social History Smoking status: Never smoker Second hand tobacco smoke exposure: No Alcohol intake: never Substance use: never Substance use type: does not use Do You Feel Safe in your Home?: Yes Lack of Transportation: No Lack of Food: Never True Current Housing: I Have Housing Concerned About Future Housing: No Difficulty Paying Gas/Electric Bills: No Difficulty Paying for Meds: No Currently Unemployed: No Education: Bachelor's Degree Difficulty w/ Childcare or Family Care: No Living arrangements: with family Occupation/Education: occupation 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 The left TM has tympanosclerosis. There is no erythema or signif
[2024-03-15 13:01] LABS: EDCOVIDSCREEN Negative (Negative); EDSTREPNEGPOS1 Negative (Negative)
== END 2024-03-15 13:13 | disposition home or self-care (01) ==
PROVIDERS: Emergency Provider Nurse Practitioner Family; PCP Nurse Practitioner Family
DX: H66.91 Otitis media, unspecified, right ear (principal); F41.8 Other specified anxiety disorders; E06.3 Autoimmune thyroiditis; E78.5 Hyperlipidemia, unspecified; I10 Essential (primary) hypertension; Z20.822 Contact with and (suspected) exposure to COVID-19
CPT/HCPCS: 87081; 87635; 87880; 99213; G0463

== ENCOUNTER 2024-12-02 07:11 | Outpatient (CLI) | payer BC, SELFPAY ==
--- NOTE | ~2024-12-02 | US_ITS ---
US abdomen limited INDICATION: Right upper quadrant pain. History of hemangiomas. PROCEDURE: Realtime right upper abdominal ultrasound. COMPARISON: MRI abdomen dated 12/03/2023 FINDINGS: The pancreas is normal without focal mass or pancreatic ductal dilation. There is a small echogenic liver mass near the dome measuring 11 mm maximum dimension, consistent with hemangioma. Th ere is normal directional flow in the portal vein. Gallbladder surgically absent. Common bile duct measures 4 mm. No sonographic Arias's sign. IMPRESSION: 1: Echogenic 11 mm liver mass near the dome, compatible with hemangioma demonstrated on prior MRI exa mination dated 12/03/2023. There Reviewed, dictated and finalized at location A. IMPRESSION: 1: Echogenic 11 mm liver mass near the dome, compatible with hemangioma demonst rated on prior MRI examination dated 12/03/2023. There
== END 2024-12-02 07:12 | disposition home or self-care (01) ==
LOC: MICIMG 07:12
PROVIDERS: PCP Nurse Practitioner; Visit Provider Nurse Practitioner
DX: D18.03 Hemangioma of intra-abdominal structures (principal); K76.89 Other specified diseases of liver; Z90.49 Acquired absence of other specified parts of digestive tract
CPT/HCPCS: 76705

== ENCOUNTER 2024-12-02 07:14 | Outpatient (CLI) | payer BC, SELFPAY ==
--- NOTE | ~2024-12-02 | US_ITS ---
US thyroid INDICATION: Hypothyroidism TECHNIQUE: Real-time sonographic images of the thyroid gland were obtained. COMPARISON: Ultrasound dated 12/13/2023 FINDINGS: The right thyroid lobe measures 5.7 x 2.1 x 1.8 cm. The left thyroid lobe measures 5.4 x 2 .2 x 2.2 cm. There is heterogeneous echotexture and echogenicity throughout the thyroid gland. No dis crete nodules identified. Normal vascular flow is present. IMPRESSION: 1. Enlarged heterogeneous thyroid gland without discrete mass. Reviewed, dictated and finalized at location A.
== END 2024-12-02 07:15 | disposition home or self-care (01) ==
LOC: MICIMG 07:15
PROVIDERS: PCP Internal Medicine; Visit Provider Internal Medicine
DX: E04.1 Nontoxic single thyroid nodule (principal)
CPT/HCPCS: 76536

== ENCOUNTER 2025-01-03 13:29 | Outpatient (CLI) | payer BC, SELFPAY ==
--- NOTE | ~2025-01-03 | MR_ITS ---
EXAMINATION: MR pituitary wo/w con DATE: 01/03/2025 15:00 INDICATION: Essential primary hypertension TECHNIQUE: Magnetic resonance imaging (MRI) of the brain and brainstem was performed without and with 19 mL Multihance intravenous contrast. Whole-brain sequences included sagittal T1-weighted FSE, axia l diffusion-weighted FS EPI, axial T2*-weighted GRE, axial T2-weighted FLAIR Propeller, and axial T2- weighted Propeller. Small vgfnw-fx-wylr sequences included sagittal and coronal T1-weighted FSE cente red at the pituitary. Postcontrast sequences included small [id number]-[id number] coronal T1-weighted FSE in a time course and sagittal T1-weighted FSE and whole-brain axial T1-weighted FSE. Apparent diffusion coefficient (ADC) maps were created. COMPARISON: 12/31/2016 FINDINGS: There are no areas of restricted diffusion to suggest acute infarction. No intracranial hemorrhage or abnormal intracranial mass lesion. There are scattered areas of nonspecific increased T2-weighted si gnal intensity in the cerebral white matter, predominantly involving the deep and periventricular whi te matter. There are no intraparenchymal signal abnormalities seen on the other pulse sequences. Pitu itary appears normal with homogeneous enhancement on the postcontrast sequences and normal midline st alk. The ventricles are symmetric and normal in size. There are no abnormal extra-axial fluid collect ions. Flow voids are seen in the cerebral arteries on the T2-weighted sequences consistent with their expected patency. Mild mucosal thickening the bilateral ethmoid sinuses. Visualized orbits and soft tissues are unremarkable. There are no areas of abnormal enhancement on the post contrast images. IMPRESSION: 1. Normal for age brain with a few scattered small foci of nonspecific increased white matter T2 hype rintensity. Normal pituitary and no acute intracranial process. Reviewed, dictated and finalized at location B. IMPRESSION: 1. Normal for age brain with a few scattered small foci of nonspecific increase d white matter T2 hyperintensity. Normal pituitary and no acute intracranial pr ocess.
--- OUTSIDE RECORDS SUMMARY | 2025-01-03 13:42 | XMS_ITS | Data Portability ---
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 Plan of Treatment Reminders Order Date Submit Date Provider Last Modified By Organization Details Last Modified Time Details Appointments None recorded. Lab TSH + free T4, serum 2022 023 WOOD Not available 3 10:13:20 T3, free, serum or plasma 2022 023 WOOD Not available 3 19:50:06 thyroid peroxidase (tpo) Ab, serum 2022 023 WOOD Not available 3 19:50:04 tsi (thyroid-st imulating immunoglobu duc), serum 2022 023 WOOD Not available 3 19:50:03 CMP, serum or plasma 2022 023 WOOD Not available 3 19:50:01 catecholami barbara + metanephrin es, 24-hour urine 2022 023 WOOD Not available 3 17:04:27 chromograni n A, serum 2022 023 Not available 3 10:12:13 metanephrin es, fractionate d, free, plasma 2022 023 WOOD Not available 3 14:15:34 CMP, serum or plasma [address] (Lab), [address] [place], [address], 3 11:47:07 TSH, serum or plasma [address] (Lab), [address] [place], [address], 3 11:47:50 CBC [address] (Lab), [address] [place], [address], 3 11:48:37 Referral None recorded. Procedures None recorded. Surgeries None recorded. Imaging electrocard iogram 2022 023 [email or web address] [facility] [address], [place], [address], 3 10:47:47 Medication Orders propranolol 10 mg tablet 2022 023 [facility]56338, [address] [place], [place], [id number], 3 10:13:32 trazodone 100 mg tablet 2022 023 [facility] #82990, [address] [place], [place], [id number], 3 16:20:52 temazepam 7.5 mg capsule 2022 023 [email or web address] [facility] #49495, [address] [place], [place], [id number], 3 09:42:07 buspirone 10 mg tablet 2022 023 [email or web address] 5 [facility] #22335, [address] [facility], [place], [place], [id number], 3 20:23:44 trazodone 50 mg tablet 2022 023 [email or web address] 5 [facility] #63538, [address] [facility], [place], [place], [id number], 3 09:15:35 Patient TargetsNo targets recorded. Patient Instructions Encounter Date Encounter Id Patient Instructions Last Modified By Organization Details Last Modified Time 10/14/2022 [id number] Discussed requirements of the controlled substance agreement (No controlled substance prescriptions from other providers without prior authorization from this office. Must present for UDS and pill counts upon request. Drug screen/pill counts will be performed at least twice yearly. No illicit substances permitted. No lending, selling, or borrowing of medication permitted. Prescriptions will not be filled early. Patient must guard against theft; lost or stolen prescriptions will not be replaced.). Failure to comply with any/all of the controlled substance agreement terms & conditions will be considered violations and may result in no further controlled substances being prescribed or dismissal from the practice. [email or web address] Not available 10/14/2022 20:31:43 Reason for Referral None Reported. Results Created Date Observation Date Name Description Value Unit Range Abnormal Flag Note LastModifiedBy Organization Detail LastModifiedTime 10/15/1910/14/2022 CBC W/O DIFFE RENTI AL white blood cells 4.7 x10'3 /uL 4.2-10 .8 Not Available [facility] (Lab) [address] [place], [address], 10/14/2022 18:53:35 10/15/19 23 10/14/2022 CBC W/O DIFFE RENTI AL red blood cells 5.20 x10'6 /uL 4.10-5 .80 Not Available [facility] (Lab) [address] [place], [address], 10/14/2022 18:53:35 10/15/19 23 10/14/2022 CBC W/O DIFFE RENTI AL hemoglobin 15.9 g/dL 13.2-1 7.0 Not Available [facility] (Lab) [address] [facility] [place], [address], 10/14/2022 18:53:35 10/15/19 23 10/14/2022 CBC W/O DIFFE RENTI AL hematocrit 47.4 % 39.3-5 0.0 Not Available [facility] (Lab) [address] [place], [address], 10/14/2022 18:53:35 10/15/19 23 10/14/2022 CBC W/O DIFFE RENTI AL mean red cell volume 91.2 fL 80.0-9 7.0 Not Available [facility] (Lab) [address] [place], [address], 10/14/2022 18:53:35 10/15/19 23 10/14/2022 CBC W/O DIFFE RENTI AL mean red cell hemoglobin 30.6 pg 27.0-3 3.0 Not Available [facility] (Lab) [address] [place], [address], 10/14/2022 18:53:35 10/15/19 23 10/14/2022 CBC W/O DIFFE RENTI AL mean RBC HGB concentratio n 33.5 g/dL 31.0-3 6.0 Not Available [facility] (Lab) [address] [place], [address], 10/14/2022 18:53:35 10/15/19 23 10/14/2022 CBC W/O DIFFE RENTI AL red cell distribution width 12.0 % 11.8-1 5.5 Not Available [facility] (Lab) [address] [place], [address], 10/14/2022 18:53:35 10/15/19 23 10/14/2022 CBC W/O DIFFE RENTI AL platelets 272 x10'3 /uL 150-40 0 Not Available [facility] (Lab) [address] [place], [address], 10/14/2022 18:53:35 10/15/19 23 10/14/2022 CBC W/O DIFFE MICHAEL AL mean platelet volume 9.7 fL 9.0-12 .4 Not Available [facility] (Lab) [address] [place], [address], 10/14/2022 18:53:35 10/15/19 23 10/14/2022 COMPR EHENS FRANCO METAB OLIC PANEL sodium 140 mmol/ L 137-14 5 Not Available [facility] (Lab) [address] [place], [address], 10/14/2022 19:21:11 10/15/19 23 10/14/2022 COMPR EHENS FRANCO METAB OLIC PANEL potassium 3.7 mmol/ L 3.5-5. 1 Not Available [facility] (Lab) [address] [place], [address], 10/14/2022 19:21:11 10/15/19 23 10/14/2022 COMPR EHENS FRANCO METAB OLIC PANEL chloride 103 mmol/ L 98-107 Not Available [facility] (Lab) [address] [place], [address], 10/14/2022 19:21:11 10/15/19 23 10/14/2022 COMPR EHENS FRANCO METAB OLIC PANEL carbon dioxide 21 mmol/ L 22-30 low Not Available [facility] (Lab) [address] [place], [address], 10/14/2022 19:21:11 10/15/19 23 10/14/2022 COMPR EHENS FRANCO METAB OLIC PANEL anion gap 19.7 mmol/ L 14-22 Not Available [facility] (Lab) [address] [place], [address], 10/14/2022 19:21:11 10/15/19 23 10/14/2022 COMPR EHENS FRANCO METAB OLIC PANEL glucose 85 mg/dL 70-99 Not Available [facility] (Lab) [address] [place], [address], 10/14/2022 19:21:11 10/15/19 23 10/14/2022 COMPR EHENS FRANCO METAB OLIC PANEL BUN 12 mg/dL 8-19 Not Available [facility] (Lab) [address] [place], [address], 10/14/2022 19:21:11 10/15/19 23 10/14/2022 COMPR EHENS FRANCO METAB OLIC PANEL creatinine 1.11 mg/dL 0.66-1 .25 Not Available [facility] (Lab) [address] [place], [address], 10/14/2022 19:21:11 10/15/19 23 10/14/2022 COMPR EHENS FRANCO METAB OLIC PANEL GFR >60 Refer ence Range : [place] ge GFR Healt hy Adult : >60 mL/mi n/1.7 3 m2 Chron ic Kidne y Disea se: 15-60 mL/mi n/1.7 3 m2 Kidne y Failu re: <15/m L/min /1.73 m2 www.n iddk. nih.g ov The MDRD study equat ion has not been valid ated in child eveline <18 years of age; pregn ant women ; the elder ly >85 years of age; or in some racia l or ethni c subgr oups, such as Hispa nics. Outsi de the valid ated kate eters , estim ated GFR is less accur ate, requi ring clini jason judgm ent on a case- by-ca se basis . Clini jason inter preta tion for other races and ages must be made by the clini theo. The MDRD study equat ion has not been valid ated for the evalu ation of serum creat inine relat ed to nutri maddie l statu s or medic ation usage . For perso ns <18 years of age, a pedia tric GFR calcu latshey is avail able on the [facility] websi te: https ://di acevedo.korey laird/pr ofess ional s/kdo qi/gf r_cal culat or Not Available [facility] (Lab) [address] [place], [address], 10/14/2022 19:21:11 10/15/1910/14/2022 COMPR EHENS FRANCO METAB OLIC PANEL alkaline phosphatase 57 U/L 38-126 Not Available [facility] (Lab) [address] [place], [address], 10/14/2022 19:21:11 10/15/19 23 10/14/2022 COMPR EHENS FRANCO METAB OLIC PANEL alanine aminotransfe rase 47 U/L 0-50 Not Available [facility] (Lab) [address] [place], [address], 10/14/2022 19:21:11 10/15/19 23 10/14/2022 COMPR EHENS FRANCO METAB OLIC PANEL aspartate aminotransfe rase 31 U/L 15-46 Not Available [facility] (Lab) [address] [place], [address], 10/14/2022 19:21:11 10/15/19 23 10/14/2022 COMPR EHENS FRANCO METAB OLIC PANEL bilirubin, total 1.40 mg/dL 0.20-1 .30 high Not Available [facility] (Lab) [address] [place], [address], 10/14/2022 19:21:11 10/15/19 23 10/14/2022 COMPR EHENS FRANCO METAB OLIC PANEL calcium 9.8 mg/dL 8.4-10 .2 Not Available [facility] (Lab) [address] [place], [address], 10/14/2022 19:21:11 10/15/19 23 10/14/2022 COMPR EHENS FRANCO METAB OLIC PANEL total protein 7.9 g/dL 6.3-8. 2 Not Available [facility] (Lab) [address] [place], [address], 10/14/2022 19:21:11 10/15/19 23 10/14/2022 COMPR EHENS FRANCO METAB OLIC PANEL albumin 5.2 g/dL 3.4-5. 0 high Not Available [facility] (Lab) [address] [place], [address], 10/14/2022 19:21:11 10/15/19 23 10/14/2022 COMPR EHENS FRANCO METAB OLIC PANEL globulin 2.7 g/dL 2.6-4. 2 Not Available [facility] (Lab) [address] [place], [address], 10/14/2022 19:21:11 10/15/19 23 10/14/2022 COMPR EHENS FRANCO METAB OLIC PANEL A/G ratio 1.9 ratio 1.0-2. 0 Not Available [facility] (Lab) [address] [place], [address], 10/14/2022 19:21:11 10/15/19 23 10/14/2022 TSH thyroid-stim ulating hormone 0.198 uIU/m L 0.465- 4.680 low Not Available [facility] (Lab) [address] [place], [address], 10/14/2022 20:05:06 12/29/19 23 12/30/2022 COMPR EHENS FRANCO METAB OLIC PANEL glucose 101 mg/dL 65-99 high Fasti ng refer ence inter vicenta For someo ne witho ut known diabe antonio, a gluco se value betwe en 100 and 125 mg/dL is consi stent with predi abete s and shoul d be confi rmed with a follo w-up test. Not Available [facility] [address] [address] [place], [address], 12/30/2022 12:05:36 12/29/19 23 12/30/2022 COMPR EHENS FRANCO METAB OLIC PANEL urea nitrogen (BUN) 15 mg/dL 7-25 normal Not Available [facility] [address] [address] [place], [address], 12/30/2022 12:05:36 12/29/19 23 12/30/2022 COMPR EHENS FRANCO METAB OLIC PANEL creatinine 1.20 mg/dL 0.60-1 .29 normal Not Available [facility] [address] [place] [address] [place], [address], 12/30/2022 12:05:36 12/29/19 23 12/30/2022 COMPR EHENS FRANCO METAB OLIC PANEL eGFR 76 mL/mi n/1.7 3m2 > or = 60 normal The eGFR is based on the CKD-E PI 2020 equat ion. To calcu late the new eGFR from a previ ous Creat inine or Cysta tin C resul t, go to https ://di acevedo.korey laird/belen collier/ kdoqi /gfr% 5Fcal culat or Not Available [address] [address] [place], [address], 12/30/2022 12:05:36 12/29/19 23 12/30/2022 COMPR EHENS FRANCO METAB OLIC PANEL BUN/creatini ne ratio NOT APPLIC ABLE (calc ) 6-22 Not Available [facility] [address] [address] [place], [address], 12/30/2022 12:05:36 12/29/19 23 12/30/2022 COMPR EHENS FRANCO METAB OLIC PANEL sodium 139 mmol/ L 135-14 6 normal Not Available [facility] [address] [place] [address] [place], [address], 12/30/2022 12:05:36 12/29/19 23 12/30/2022 COMPR EHENS FRANCO METAB OLIC PANEL potassium 4.0 mmol/ L 3.5-5. 3 normal Not Available [address], [address], 12/30/2022 12:05:36 12/29/19 23 12/30/2022 COMPR EHENS FRANCO METAB OLIC PANEL chloride 105 mmol/ L 98-110 normal Not Available [address], [address], 12/30/2022 12:05:36 12/29/19 23 12/30/2022 COMPR EHENS FRANCO METAB OLIC PANEL carbon dioxide 27 mmol/ L 20-32 normal Not Available [address], [address], 12/30/2022 12:05:36 12/29/19 23 12/30/2022 COMPR EHENS FRANCO METAB OLIC PANEL calcium 9.5 mg/dL 8.6-10 .3 normal Not Available [address], [address], 12/30/2022 12:05:36 12/29/19 23 12/30/2022 COMPR EHENS FRANCO METAB OLIC PANEL protein, total 6.7 g/dL 6.1-8. 1 normal Not Available [address], [address], 12/30/2022 12:05:36 12/29/19 23 12/30/2022 COMPR EHENS FRANCO METAB OLIC PANEL albumin 4.7 g/dL 3.6-5. 1 normal Not Available [address], [address], 12/30/2022 12:05:36 12/29/19 23 12/30/2022 COMPR EHENS FRANCO METAB OLIC PANEL globulin 2.0 g/dL_ (calc ) 1.9-3. 7 normal Not Available [address], [address], 12/30/2022 12:05:36 12/29/19 23 12/30/2022 COMPR EHENS FRANCO METAB OLIC PANEL albumin/glob ulin ratio 2.4 (calc ) 1.0-2. 5 normal Not Available [address], [address], 12/30/2022 12:05:36 12/29/19 23 12/30/2022 COMPR EHENS FRANCO METAB OLIC PANEL bilirubin, total 0.6 mg/dL 0.2-1. 2 normal Not Available [address], [address], 12/30/2022 12:05:36 12/29/19 23 12/30/2022 COMPR EHENS FRANCO METAB OLIC PANEL alkaline phosphatase 46 U/L 36-130 normal Not Available [facility] [address] [address] [place], [address], 12/30/2022 12:05:36 12/29/19 23 12/30/2022 COMPR EHENS FRANCO METAB OLIC PANEL AST 10 U/L 10-40 normal Not Available [address], [address], 12/30/2022 12:05:36 12/29/19 23 12/30/2022 COMPR EHENS FRANCO METAB OLIC PANEL ALT 11 U/L 9-46 normal Not Available [address], [address], 12/30/2022 12:05:36 12/29/19 23 12/30/2022 THYRO ID PEROX IDASE ANTIB ODIES thyroid peroxidase antibodies 13 IU/mL <9 high Not Available [address], [address], 12/30/2022 12:05:36 12/29/19 23 12/30/2022 T3, FREE T3, free 3.9 pg/mL 2.3-4. 2 normal Not Available [address], [address], 12/30/2022 12:05:37 12/29/19 23 12/30/2022 TSH+F REE T4 TSH 0.08 mIU/L 0.40-4 .50 low Not Available [address], [address], 12/30/2022 12:05:37 12/29/19 23 12/30/2022 TSH+F REE T4 T4, free 1.3 NG/dL 0.8-1. 8 normal Not Available [address], [address], 12/30/2022 12:05:37 01/07/20 23 01/12/2023 METAN EPHRI BARBARA, FRACT , FREE, LC/MS /MS, PLASM A metanephrine , free 49 pg/mL <=57 This test was devel oped and its roni tical perfo rmanc e alo cteri stics have been deter mined by [facility] [place], [place]. It has not been clear ed or appro vargas by the U.S. Food and Drug Admin istra tion. This assay has been valid ated pursu ant to the CLIA regul ation s and is used for clini jason purpo ses. Not Available [facility] [address] [address] [place], [address], 01/12/2023 14:15:34 01/07/20 23 01/12/2023 METAN EPHRI BARBARA, FRACT , FREE, LC/MS /MS, PLASM A normetanephr ine, free 67 pg/mL <=148 This test was devel oped and its roni tical perfo rmanc e alo cteri stics have been deter mined by [facility] [place]. It has not been clear ed or appro vargas by the U.S. Food and Drug Admin istra tion. This assay has been valid ated pursu ant to the CLIA regul ation s and is used for clini jason purpo ses. Not Available [facility] [address] [address], [place], [address], 01/12/2023 14:15:34 01/07/20 23 01/12/2023 METAN EPHRI BARBARA, FRACT , FREE, LC/MS /MS, PLASM A total, free (MN+nmn) 116 pg/mL <=205 For addit ional infor luciano gallagher e refer to http: //[facility] patricia blackwell.que stdia gnost ics.c om/fa q/Met Fract Free (This link is being provi ded for infor matio nal/e ducat io infor matio nal/e ducat ional purpo ses only. ) Nova tions >4-fo ld upper refer ence range : stron gly sugge stive of a pheoc hromo cytom a(1). Nova tions >1- 4-fol d upper refer ence range : signi fican t but not diagn ostic , may be due to medic ation s or stres s. Sugge st runni ng 24 hr urine fract ionat ed metan ephri barbara and/o r serum Chrom agran in A for confi rmati on. Refer ence: (1)Pavel montoya as-Sc kwadwo rudolph A et al, Plasm a Chrom ogran in A or Urine Fract ionat ed Metan ephri barbara Follo w-Up Testi ng Impro ves the Diagn ostic Accur acy of Plasm a Fract ionat ed Metan ephri barbara for Pheoc hromo cytom a. The Journ al of Clini jason Endoc rinol ogy # Metab olism 93(1) , 91-95 , 2007. This test was devel oped and its roni tical perfo rmanc e alo cteri stics have been deter mined by [facility] [place]. It has not been clear ed or appro vargas by the U.S. Food and Drug Admin istra tion. This assay has been valid ated pursu ant to the CLIA regul ation s and is used for clini jason purpo ses. Not Available [employer] [facility] [address] , [place], [address], 01/12/2023 14:15:34 01/07/20 23 01/12/2023 CHROM OGRAN IN A, LC/MS /MS chromogranin A, lc/MS/MS 155 NG/mL adults : <311 The sampl e type for this test was serum . Inter preta tion of patie nt resul ts may be affec elsie by a varie ty of condi tions such as hyper tensi on, gastr itis, prost ate cance r, hyper parat hyroi dism, and most commo nly renal disea se and use of carlyle n pump inhib itors (PPIs ). (Jose Noriega, et al. Chrom ogran in A measu remen t in metas tatic well- diffe renti ated gastr oente ropan creat ic neuro endoc rine carci noma: scree rob for false posit alana and a prosp ectiv e follo w-up study . Int J Biol Nathaniel rs. 2010-J un;26 (2):9 4-101 .) This test was perfo rmed using a Liqui d Chrom atogr aphy Mass Spect romet ry metho d. Value s obtai marlno from diffe rent assay metho ds canno t be used inter amos eably . Chrom ogran in A level s, regar dless of value , shoul d not be inter prete d as absol tonto apache evide nce of the prese nce or absen ce of disea se. This test was devel oped and its roni tical perfo rmanc e alo cteri stics have been deter mined by [facility] [facility] A[employer]ush [employer] . It has not been clear ed or appro vargas by FDA. This assay has been valid ated pursu ant to the CLIA regul ation s and is used for clini jason purpo ses. Not Available [facility] [address] [address] [place], [address], 01/12/2023 14:15:35 01/13/20 23 01/25/2023 CATEC HOLAM NAYELI, FRACT , 24 HOUR URINE W/O CREAT 24 HR urine volume 2800 mL/24 _h Not Available [facility] [address] [place] [address] [place], [address], 01/25/2023 05:54:01 01/13/20 23 01/25/2023 CATEC HOLAM NAYELI, FRACT , 24 HOUR URINE W/O CREAT epinephrine, 24 HR urine see note Resul ts are below the repor table range for this roni te, which is 2.0 mcg/L . This test was devel oped and its roni tical perfo rmanc e alo cteri stics have been deter mined by [facility] [place], [place]. It has not been clear ed or appro vargas by the U.S. Food and Drug Admin istra tion. This assay has been valid ated pursu ant to the CLIA regul ation s and is used for clini jason purpo ses. Not Available [facility] [address] [place] [address] [place], [address], 01/25/2023 05:54:01 01/13/20 23 01/25/2023 CATEC HOLAM NAYELI, FRACT , 24 HOUR URINE W/O CREAT norepinephri ne, 24 HR ur 29 mcg/2 4_h 15-100 This test was devel oped and its roni tical perfo rmanc e alo cteri stics have been deter mined by [facility], [place]. It has not been clear ed or appro vargas by the U.S. Food and Drug Admin istra tion. This assay has been valid ated pursu ant to the CLIA regul ation s and is used for clini jason purpo ses. Not Available [facility] [address] [address] [place], [address], 01/25/2023 05:54:01 01/13/20 23 01/25/2023 CATEC HOLAM NAYELI, FRACT , 24 HOUR URINE W/O CREAT calculated total (E+ne) 29 mcg/2 4_h 26-121 This test was devel oped and its roni tical perfo rmanc e alo cteri stics have been deter mined by [facility] [place]. It has not been clear ed or appro vargas by the U.S. Food and Drug Admin istra tion. This assay has been valid ated pursu ant to the CLIA regul ation s and is used for clini jason purpo ses. Not Available [facility] [address], [address], 01/25/2023 05:54:01 01/13/20 23 01/25/2023 CATEC HOLAM NAYELI, FRACT , 24 HOUR URINE W/O CREAT dopamine, 24 HR urine 162 mcg/2 4_h 52-480 This test was devel oped and its roni tical perfo rmanc e alo cteri stics have been deter mined by [facility] [employer] [place], [place]. It has not been clear ed or appro vargas by the U.S. Food and Drug Admin istra tion. This assay has been valid ated pursu ant to the CLIA regul ation s and is used for clini jason purpo ses. Not Available [facility] [address], [address], 01/25/2023 05:54:01 01/13/20 23 01/25/2023 METAN EPHRI BARBARA, FRACT . LC/MS /MS, 24 HR URINE total volume 2800 mL Not Available [facility] [address] [place], [address], 01/25/2023 05:54:02 01/13/20 23 01/25/2023 METAN EPHRI BARBARA, FRACT . LC/MS /MS, 24 HR URINE metanephrine 187 mcg/2 4_h 58-203 This test was devel oped and its roni tical perfo rmanc e alo cteri stics have been deter mined by [facility] [place]. It has not been clear ed or appro vargas by the U.S. Food and Drug Admin istra tion. This assay has been valid ated pursu ant to the CLIA regul ation s and is used for clini jason purpo ses. Not Available [facility] [address] [address] [place], [address], 01/25/2023 05:54:02 01/13/20 23 01/25/2023 METAN EPHRI BARBARA, FRACT . LC/MS /MS, 24 HR URINE normetanephr ine 157 mcg/2 4_h 88-649 This test was devel oped and its roni tical perfo rmanc e alo cteri stics have been deter mined by [facility] [place]. It has not been clear ed or appro vargas by the U.S. Food and Drug Admin istra tion. This assay has been valid ated pursu ant to the CLIA regul ation s and is used for clini jason purpo ses. Not Available [facility] [address] [address] [place], [address], 01/25/2023 05:54:02 01/13/20 23 01/25/2023 METAN EPHRI BARBARA, FRACT . LC/MS /MS, 24 HR URINE metanephrine s, total 344 mcg/2 4_h 182-73 9 A four fold eleva tion of urina ry norme tanep hrine s is extre cheryle likel y to be due to a tumor , while a four fold eleva tion of urina ry metan ephri barbara is highl y sugge stive , but not diagn ostic of the tumor . Measu remen t of plasm a Metan ephri barbara and Chrom ogran in A is recom cale d for confi rmati on. Not Available [facility] [place], [address], 01/25/2023 05:54:02 02/27/2003/03/2023 COMPR EHENS FRANCO METAB OLIC PANEL glucose 100 mg/dL 65-99 high Fasti ng refer ence inter vicenta For someo ne witho ut known diabe antonio, a gluco se value betwe en 100 and 125 mg/dL is consi stent with predi abete s and shoul d be confi rmed with a follo w-up test. Not Available [address], [address], 03/03/2023 19:50:01 02/27/2003/03/2023 COMPR EHENS FRANCO METAB OLIC PANEL urea nitrogen (BUN) 12 mg/dL 7-25 normal Not Available [address], [address], 03/03/2023 19:50:01 02/27/20 23 03/03/2023 COMPR EHENS FRANCO METAB OLIC PANEL creatinine 1.28 mg/dL 0.60-1 .29 normal Not Available [address], [address], 03/03/2023 19:50:01 02/27/20 23 03/03/2023 COMPR EHENS FRANCO METAB OLIC PANEL eGFR 70 mL/mi n/1.7 3m2 > or = 60 normal Not Available [facility] [address], [address], 03/03/2023 19:50:01 02/27/2003/03/2023 COMPR EHENS FRANCO METAB OLIC PANEL BUN/creatini ne ratio SEE NOTE: (calc ) 6-22 Not Repor elsie: BUN and Creat inine are withi n refer ence range . Not Available [facility] [address], [address], 03/03/2023 19:50:01 02/27/20 23 03/03/2023 COMPR EHENS FRANCO METAB OLIC PANEL sodium 139 mmol/ L 135-14 6 normal Not Available [address], [address], 03/03/2023 19:50:01 02/27/20 23 03/03/2023 COMPR EHENS FRANCO METAB OLIC PANEL potassium 4.1 mmol/ L 3.5-5. 3 normal Not Available [address], [address], 03/03/2023 19:50:01 02/27/20 23 03/03/2023 COMPR EHENS [facility] METAB OLIC PANEL chloride 105 mmol/ L 98-110 normal Not Available [address], [id number], 03/03/2023 19:50:01 02/27/20 23 03/03/2023 COMPR EHENS [facility] METAB OLIC PANEL carbon dioxide 26 mmol/ L 20-32 normal Not Available [address], [id number], 03/03/2023 19:50:01 02/27/20 23 03/03/2023 COMPR EHENS [facility] METAB OLIC PANEL calcium 9.2 mg/dL 8.6-10 .3 normal Not Available [address], [address], 03/03/2023 19:50:01 02/27/20 23 03/03/2023 COMPR EHENS FRANCO METAB OLIC PANEL protein, total 6.3 g/dL 6.1-8. 1 normal Not Available [address], [address], 03/03/2023 19:50:01 02/27/20 23 03/03/2023 COMPR EHENS FRANCO METAB OLIC PANEL albumin 4.6 g/dL 3.6-5. 1 normal Not Available [address], [address], 03/03/2023 19:50:01 02/27/20 23 03/03/2023 COMPR EHENS FRANCO METAB OLIC PANEL globulin 1.7 g/dL_ (calc ) 1.9-3. 7 low Not Available [address], [address], 03/03/2023 19:50:01 02/27/20 23 03/03/2023 COMPR EHENS FRANCO METAB OLIC PANEL albumin/glob ulin ratio 2.7 (calc ) 1.0-2. 5 high Not Available [address], [address], 03/03/2023 19:50:01 02/27/20 23 03/03/2023 COMPR EHENS FRANCO METAB OLIC PANEL bilirubin, total 0.5 mg/dL 0.2-1. 2 normal Not Available [address], [address], 03/03/2023 19:50:01 02/27/20 23 03/03/2023 COMPR EHENS FRANCO METAB OLIC PANEL alkaline phosphatase 45 U/L 36-130 normal Not Available [address], [address], 03/03/2023 19:50:01 02/27/20 23 03/03/2023 COMPR EHENS FRANCO METAB OLIC PANEL AST 12 U/L 10-40 normal Not Available [address], [address], 03/03/2023 19:50:01 02/27/20 23 03/03/2023 COMPR EHENS FRANCO METAB OLIC PANEL ALT 14 U/L 9-46 normal Not Available [address], [address], 03/03/2023 19:50:01 08/25/03/03/2023 TSI (THYR OID STIMU LATIN G IMMUN OGLOB ULIN) tsi <89 %_bas sophia <140 Thyro id stimu latin g immun oglob ulins (TSI) can engag e the TSH production line assembler tors resul ting in hyper thyro idism in Grave s' disea se patie nts. TSI level s can be usefu l in monit oring the clini jason outco me of Grave s' disea se as well as asses sing the poten tial for hyper thyro idism from mater nal-f etal trans fercho. TSI resul ts great er than or equal to (>=) 140% of the Refer ence Contr ol are consi dered posit franco. NOTE: A serum TSH level great er than 350 micro -Inte rnati onal Units /mL can inter fere with the TSI bioas say and poten tiall y give false posit franco resul ts. Patie nts who are pregn ant and are suspe cted of havin g hyper thyro idism shoul d have both TSI and human Chori onic Gonad otrop in (hCG) tests measu red. A serum hCG level great er than 40,62 5 mIU/m L can inter fere with the TSI bioas say and may give false negat franco resul ts. In these patie nts it is recom cale d that a secon d TSI be obtai marlon when the hCG cheli ntrat ion falls below 40,62 5 mIU/m L (usua lly after appro ximat andrew 20-we eks gesta tion) . The roni tical perfo rmanc e alo cteri stics of this assay have been deter mined by [facility] ostreva s [employer] Aayush ibrahim . The modif icati ons have not been clear ed or appro vargas by the FDA. This assay has been valid ated pursu ant to the CLIA regul ation s and is used for clini jason purpo ses. Not Available [employer] [facility] [address], [place], [address], 03/03/2023 19:50:02 02/27/20 23 03/03/2023 THYRO ID PEROX IDASE ANTIB ODIES thyroid peroxidase antibodies 9 IU/mL <9 high Not Available [address], [address], 03/03/2023 19:50:04 02/27/20 23 03/03/2023 T4, FREE T4, free 1.2 NG/dL 0.8-1. 8 normal Not Available [address], [address], 03/03/2023 19:50:04 02/27/20 23 03/03/2023 TSH TSH 0.21 mIU/L 0.40-4 .50 low Not Available [address], [address], 03/03/2023 19:50:05 02/27/20 23 03/03/2023 T3, FREE T3, free 3.7 pg/mL 2.3-4. 2 normal Not Available [address], [address], 03/03/2023 19:50:06 10/15/19 23 elect niranjan garcia am No observ ation record ed. [id number] [facility] [address], [place], [address], 10/14/2022 10:04:15 Result Notes None recorded. Problems Name Problem SNOMED Code Status Onset Date Resolution Date Notes Provider Name and Address Organization Details Recorded Time Sukhjinderdeanne l hyperten mary 14987079 Active 2022 BRAD Ramírez [address] [facility], [place] [address] [address], [place], [address] , [employer] 3 10:24:58 Palpitat ions 21641434 Active 2022 BRAD Ramírez [address] [facility], [facility] [address], [place], [address] , [employer] [facility] [employer] 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 [address] [facility], [address], [place], [address] , [facility] [employer] [facility] [employer] 3 12:29:50 Tooth disorder 733616652 Active 2022 Austin Marquis [facility] [address] [facility], [address], [place], [address] , [facility] [employer] [facility] [employer] 3 17:14:56 Tobacco user 556824080 Active Not Available [facility] 3 04:53:57 Acne 53789554 Completed Not Available [facility] 3 04:53:57 Cervical lymphade nopathy 630960573 Active 2019 Not Available [facility] 3 04:53:57 Lumbar radiculo sarmad 054346624 Completed Not Available [facility] 3 04:53:58 Follicul itis 78469387 Completed Not Available [facility] 3 04:53:58 Disorder of thyroid gland 99682088 Completed Not Available [facility] 3 04:53:58 Constipa tion 27384588 Completed Not Available [facility] 3 04:53:58 Acute sinusiti s 71662838 Completed Not Available [facility] 3 04:53:58 Pain of right elbow joint 25635563617 943173 Active 2019 Not Available [employer] 3 04:53:58 Idiopath ic hypercal cemia 299613275 Active 2019 Not Available [facility] 3 04:53:58 Insomnia 755917148 Active 2022 Not Available [facility] 3 04:53:58 Polyp of gallblad curtis 369080816 Active 2019 Not Available [facility] 3 04:53:58 Anxiety disorder 323967993 Active 2019 Not Available [employer] 3 04:53:59 Spasm of back muscles 702555244 Completed Not Available [employer] 3 04:53:59 Abdomina l pain 20331850 Completed Not Available [facility] 3 04:53:59 Hashimot o thyroidi tis 43815413 Active 2021 Not Available [facility] 3 04:53:59 Feeling stressed 994312042 Completed Not Available [facility] 3 04:53:59 Thyroid nodule 054898554 Active Not Available [employer] 3 04:53:59 Overweig ht 777760200 Active 2019 Not Available [facility] 3 04:53:59 Eruption 782056101 Completed Not Available [facility] 3 04:53:59 Jaw pain 180557776 Active 2019 Not Available [facility] 3 04:54:00 Cut of head 811073899 Completed Not Available [facility] 3 04:54:00 Tenderne ss of thyroid 073953459 Completed Not Available [facility] 3 04:54:00 Hyperthy roidism 80201192 Active 2019 Not Available [facility] 3 04:54:00 Depressi ve disorder 68560060 Active 2020 Not Available [employer] 3 04:54:00 Seasonal allergic rhinitis 104763544 Active 2020 Not Available [facility] 3 04:54:00 Dyslipid emia 147997700 Active 2021 Not Available [employer] 3 04:54:01 Panic disorder 338775137 Active 2021 Not Available [facility] 3 04:54:01 Migraine 99477765 Active 2016 occular migraine s Not Available [employer] 3 04:54:01 Hyperten sive disorder 26362889 Active 2019 Not Available [employer] 3 04:54:01 Impaired fasting glycemia 129127706 Active 2021 Not Available [facility] 3 04:54:01 Ingrowin g nail 252498342 Completed Not Available [facility] 3 04:54:02 History of cholecys tectomy 747743991 Active 2020 Not Available [employer] 3 04:54:02 Disorder of lumbar disc 232680691 Completed Not Available [facility] 3 04:54:02 Anxiety 03566564 Active 2021 Not Available [facility] 3 04:54:02 Hyperlip idemia 66567188 Active 2019 Not Available [facility] 3 04:54:03 Essentia l hyperten mary 14954574 Completed BRAD Ramírez [address], [address], [place], [address] , [employer] 3 10:24:58 Posterio r rhinorrh ea 56973753 Completed Not Available [facility] 3 04:54:03 Spinal stenosis 67438874 Completed Not Available [facility] 3 04:54:03 Epigastr ic pain 65480973 Completed 202010/30/2020 Not Available [facility] 3 04:54:04 Palpitat ions 00875297 Completed BRAD Ramírez [address], [address], [place], [address] , [employer] 3 10:06:08 Upper abdomina l pain 76372905 Completed Not Available [facility] 3 04:54:04 COVID-19 884805115 Active 2021 Not Available [facility] 3 04:54:04 Fatigue 38776650 Active 2019 Not Available [facility] 3 04:54:04 Erectile dysfunct ion 037783588 Active 2021 Not Available [facility] 3 04:54:05 Tobacco dependen ce syndrome 24541141 Active 2019 Not Available [facility] 3 04:54:05 Problem Notes Documentation Provider Name and Address Organization Details Recorded Time Endocrinology Consult Note : [employer] [address], [place] [address], Matthew R (id #[id number], : 1975) Documents sent via fax will include the following message: This fax may contain sensitive and confidential personal health information that is being sent for the sole use of the intended recipient. Unintended recipients are directed to securely destroy any materials received. You are hereby notified that the unauthorized disclosure or other unlawful use of this fax or any personal health information is prohibited. To the extent patient information contained in this fax is subject to 42 CFR Part 2, this regulation prohibits unauthorized disclosure of these records. If you received this fax in error, please visit [email or web address] to notify the sender and confirm that the information will be destroyed. If you do not have internet access, please call to notify the sender and confirm that the information will be destroyed. Thank you for your attention and cooperation. [ID:[id number]][facility] [employer] [facility] [address] [place] [address] , Date: 01/01/2023RE: Christiano Beckham, : 1975, PT ID #[id number] Marquis [facility], I would like to thank you for referring Christiano Beckham to our practice for consultation and evaluation of FU ON LABS , on 01/01/2023. I have enclosed a copy of the office evaluation for your records. Once again, thank you for allowing me to participate in the care of this patient. Sincerely, Electronically Signed by: ZA VELEZ MD Encounter Reason/Date FU ON LABS 01/01/2023 - 08:30AM - [facility] Endo [place] Problems:Reviewed Problems Thyroid nodule Hyperthyroidism - Onset: 12/13/2019 Gary thyroiditis - Onset: 09/09/2021 Thyroid dysfunction - Onset: 11/04/2022 Dyslipidemia - Onset: 09/09/2021 Hyperlipidemia - Onset: 12/20/2019 Idiopathic hypercalcemia - Onset: 12/13/2019 Overweight - Onset: 12/04/2019 Anxiety disorder - Onset: 12/04/2019 Anxiety - Onset: 11/18/2021 Erectile dysfunction - Onset: 11/18/2021 Tobacco user Tobacco dependence syndrome - Onset: 12/04/2019 Chronic post-traumatic stress disorder - Onset: 10/14/2022 Depressive disorder - Onset: 10/08/2020 Insomnia - Onset: 08/05/2022 Migraine - Onset: 06/07/2017 - occular migraines Essential hypertension - Onset: 09/08/2022 Hypertensive disorder - Onset: 12/04/2019 Seasonal allergic rhinitis - Onset: 10/30/2020 Tooth disorder - Onset: 11/06/2022 Polyp of gallbladder - Onset: 12/20/2019 Fatigue - Onset: 12/13/2019 Jaw pain - Onset: 12/13/2019 Palpitations - Onset: 10/14/2022 Cervical lymphadenopathy - Onset: 12/04/2019 Impaired fasting glycemia - Onset: 09/09/2021 History of cholecystectomy - Onset: 10/30/2020 Pain of right elbow joint - Onset: 04/03/2020 Panic disorder - Onset: 07/28/2021 COVID-19 - Onset: 07/31/2021 Allergies: Reviewed Allergies NAPROSYN: Other - abdominal pain Medications: Reviewed Medications NameDate Source Accu-Chek Fastclix Lancet DrumUSE TO TEST FOUR TIMES DAILY.05/30/21 filled MIGRATION.[id number] Accu-Chek Guide test stripsU QID03/19/20 filled MIGRATION.[id number] busPIRone 10 mg tabletTAKE 2 TABLETS BY MOUTH 3 TIMES A DAY12/10/22 filled surescripts lisinopriL 10 mg tabletTAKE 1 TABLET BY MOUTH EVERY DAY12/10/22 filled surescripts propranoloL 10 mg tabletTAKE 1 TABLET BY MOUTH THREE TIMES DAILY MHVYJD55/30/23 prescribed Za Velez MD tadalafiL 20 mg tabletTAKE 1 TABLET BY MOUTH ONCE DAILY NEEDED FOR 30 DAYS11/12/22 filled surescripts traZODone 100 mg tabletTAKE 1 TABLET BY MOUTH EVERY DAY AT PIFXKBD65/08/23 filled surescripts Mens Once daily multivitamin Family History:Family History not reviewed (last reviewed 11/03/2022) Unspecified Relation - Family history of cancer Mother - Arthritis Maternal Grandmother - Arthritis Maternal Grandmother - Hypertensive disorder Paternal Grandfather - Malignant neoplastic disease Maternal Grandfather - Hypercholesterolemia Social History:Social History not reviewed (last reviewed 11/03/2022) Diet and ExerciseWhat type of diet are you following?: RegularDo you have any dietary restrictions?: NoWhat is your exercise level?: ModeratePublic Health and TravelHave you recently traveled abroad?: NoIn the 14 days before symptom onset, have you had close contact with a laboratory-confirmed COVID-19 while that case was ill?: NoIn the 14 days before symptom onset, have you had close contact with a person who is under investigation for COVID-19 while that person was ill?: NoSubstance UseDo you or have you ever smoked tobacco?: Never smokerDo you or have you ever used any other forms of tobacco or nicotine?: NoDo you or have you ever used e-cigarettes or vape?: Never used electronic cigarettesDo you or have you ever used smokeless tobacco?: Never used smokeless tobaccoHow much tobacco do you chew?: none (Notes: former)What is your level of alcohol consumption?: NoneDo you use any illicit or recreational drugs?: NoWhich illicit or recreational drugs have you used?: noneWhat is your level of caffeine consumption?: HeavyMarriage and SexualityWhat is your relationship status?: MarriedEducation and 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 Concerns of increased anxiety. last seen in Dec/telemedicine at that time we continued thyroid support along with phentermine 15 mg daily. He has been more on a keto diet/low carb- last meal around 6 pm.He was on 15 hour fast for bloodwork and glucose marginally high. He has lost 10 pounds since June. Patient no longer on phentermine due to anxiety. He is having more anxiety over the past few years. He is taking buspar 20 mg TID and does help when taking this. He has been running 140 on systolic range up to 90 diastolic range. He tried wellbutrin in the past and this caused panic attacks. He is struggling with daily anxiety- he has had a lot of heavy life circumstances. The propranolol does help keep his anxiety downlabs from12/28/22:glucose 101 mg/dLCr 1.2 mg/dL with GFR 76 ml/minTPO 13 IU/mlTSH of 0.08 uIU/mlFT3 of 3.9 pg/mLFT4 of 1.3 ng/dLReview of Systems:ROS as noted in the HPIPhysical ExamConstitutional:General Appearance: healthy-appearing, well-nourished, well-developed, not anxious/nervous, and no sweating. Level of Distress: no acute distress. Eyes:Lids and Conjunctivae: no discharge, pallor, lid lag, or periorbital edema and non-injected. Neck:Neck: supple, trachea midline, no masses, and full range of motion. Thyroid: no enlargement or nodules and non-tender. Neck vessels: no carotid bruits or thyroid bruits. Lymph Nodes: no anterior cervical LAD, posterior cervical LAD, submandibular LAD, submental LAD, preauricular LAD, or supraclavicular LAD. Cardiovascular:Apical Impulse: not displaced. Heart Auscultation: normal S1 and S2; no murmurs, rubs, or gallops; and regular rate and rhythm. Lungs:Auscultation: no wheezing, rales/crackles, or rhonchi and breath sounds normal, good air movement, and clear to auscultation. Psychiatric:Mental Status: normal mood and affect, no diffuse anxiety or paranoid ideations, and active and alert.Procedure DocumentationNone recordedAssessment/Plan1. Essential hypertension-Send for 24 hour urinary cats/mets to screen for pheochromocytoma-patient has systolic pressures that are sporadic in nature and patient having more anxiety.I10: Essential (primary) hypertension CATECHOLAMINES + METANEPHRINES, 24-HOUR URINE CHROMOGRANIN A, SERUM METANEPHRINES, FRACTIONATED, FREE, PLASMA 2. Gary thyroiditis-FT4/FT3 in range. Recommended a thyroid supplement similiar to actalin by Dr. Wily Richards that contains, iodine, magnesium, manganese, carnitine and other elements to help maintain endogenous thyroid function and help to reduce swelling to take in meantime to help reduce time frame to burn out and to help with fatigue, hair thinning etc. Continue on propranolol 10 mg TID as needed for HR over 90 bpm and increased anxiety. On buspar TID for anxiety. Spent up to 28 minutes preparing to see the patient (eg, review of tests), obtaining and/or reviewing separately obtained history, performing a medically appropriate examination and evaluation, counseling and educating the patient, ordering medications, tests, along with documenting clinical information in the electronic health record, independently interpreting results and communicating results to the patient. RTC in 6 months. Patient was provided a handwritten lab order which contains our fax number. If he chooses to go outside of the [employer] system to obtain labwork he was advised to provide our fax number and my information to the lab he will be obtaining labwork from in order to have his labs properly forwarded over for me to review so there is no loss of follow up due to use of outside network. He was also advised to contact our clinic informing us that he has completed his labwork so we are aware we will need to reach out to the appropriate laboratory to request his results be forwarded to us so I might have the ability to review and make further medical decision making in his case. He voiced understanding.E06.3: Autoimmune thyroiditis TSH + FREE T4, SERUM T3, FREE, SERUM OR PLASMA THYROID PEROXIDASE (TPO) AB, SERUM TSI (THYROID-STIMULATING IMMUNOGLOBULIN), SERUM CMP, SERUM OR PLASMA propranolol 10 mg tablet - TAKE 1 TABLET BY MOUTH THREE TIMES DAILY NEEDED Qty: (270) tablet Refills: 1 Pharmacy: [id number] Return to Office Za Velez MD for Follow Up 15 at [facility] Kiersten [place] on 04/29/2023 at 10:15 AM [facility] [place] [facility] [employer] [facility] 01/01/2023 12:37:10 Endocrinology Consult Note : [facility] [address], [place] [address]PIAZFChristiano (id #[id number], : 1975) Documents sent via fax will include the following message: This fax may contain sensitive and confidential personal health information that is being sent for the sole use of the intended recipient. Unintended recipients are directed to securely destroy any materials received. You are hereby notified that the unauthorized disclosure or other unlawful use of this fax or any personal health information is prohibited. To the extent patient information contained in this fax is subject to 42 CFR Part 2, this regulation prohibits unauthorized disclosure of these records. If you received this fax in error, please visit [email or web address] to notify the sender and confirm that the information will be destroyed. If you do not have internet access, please call to notify the sender and confirm that the information will be destroyed. Thank you for your attention and cooperation. [ID:[id number]][facility] [employer] [address] [place] [address] , Date: 03/09/2023RE: Christiano Beckham, : 1975, PT ID #[id number] Marquis [facility], I would like to thank you for referring Christiano Beckham to our practice for consultation and evaluation of FU ON LABS , on 03/09/2023. I have enclosed a copy of the office evaluation for your records. Once again, thank you for allowing me to participate in the care of this patient. Sincerely, Electronically Signed by: ZA VELEZ MD Encounter Reason/Date FU ON LABS 03/09/2023 - 11:30AM - [facility] Kiersten [place] Problems:Reviewed Problems Thyroid nodule Hyperthyroidism - Onset: 12/13/2019 Gary thyroiditis - Onset: 09/09/2021 Thyroid dysfunction - Onset: 11/04/2022 Dyslipidemia - Onset: 09/09/2021 Hyperlipidemia - Onset: 12/20/2019 Idiopathic hypercalcemia - Onset: 12/13/2019 Overweight - Onset: 12/04/2019 Anxiety disorder - Onset: 12/04/2019 Anxiety - Onset: 11/18/2021 Erectile dysfunction - Onset: 11/18/2021 Tobacco user Tobacco dependence syndrome - Onset: 12/04/2019 Chronic post-traumatic stress disorder - Onset: 10/14/2022 Depressive disorder - Onset: 10/08/2020 Insomnia - Onset: 08/05/2022 Migraine - Onset: 06/07/2017 - occular migraines Essential hypertension - Onset: 09/08/2022 Hypertensive disorder - Onset: 12/04/2019 Seasonal allergic rhinitis - Onset: 10/30/2020 Tooth disorder - Onset: 11/06/2022 Polyp of gallbladder - Onset: 12/20/2019 Fatigue - Onset: 12/13/2019 Jaw pain - Onset: 12/13/2019 Palpitations - Onset: 10/14/2022 Cervical lymphadenopathy - Onset: 12/04/2019 Impaired fasting glycemia - Onset: 09/09/2021 History of cholecystectomy - Onset: 10/30/2020 Pain of right elbow joint - Onset: 04/03/2020 Panic disorder - Onset: 07/28/2021 COVID-19 - Onset: 07/31/2021 Allergies: Reviewed Allergies NAPROSYN: Other - abdominal pain Medications: Reviewed Medications NameDate Source Accu-Chek Fastclix Lancet DrumUSE TO TEST FOUR TIMES DAILY.05/30/21 filled MIGRATION.[id number] Accu-Chek Guide test stripsU QID03/19/20 filled MIGRATION.[id number] busPIRone 10 mg tabletTAKE 2 TABLETS BY MOUTH 3 TIMES A DAY02/28/23 filled surescripts lisinopriL 10 mg tabletTAKE 1 TABLET BY MOUTH EVERY DAY02/28/23 filled surescripts propranoloL 10 mg tabletTAKE 1 TABLET BY MOUTH THREE TIMES DAILY PVEKAE46/30/23 filled surescripts tadalafiL 20 mg tabletTAKE 1 TABLET BY MOUTH ONCE DAILY NEEDED FOR 30 DAYS11/12/22 filled surescripts traZODone 100 mg tabletTAKE 1 TABLET BY MOUTH EVERY DAY AT PHCQOMQ61/27/23 filled surescripts Mens Once daily multivitamin Family History:Family History not reviewed (last reviewed 11/03/2022) Unspecified Relation - Family history of cancer Mother - Arthritis Maternal Grandmother - Arthritis Maternal Grandmother - Hypertensive disorder Paternal Grandfather - Malignant neoplastic disease Maternal Grandfather - Hypercholesterolemia Social History:Social History not reviewed (last reviewed 11/03/2022) Substance UseDo you or have you ever smoked tobacco?: Never smokerDo you or have you ever used any other forms of tobacco or nicotine?: NoDo you or have you ever used e-cigarettes or vape?: Never used electronic cigarettesDo you or have you ever used smokeless tobacco?: Never used smokeless tobaccoHow much tobacco do you chew?: none (Notes: former)What is your level of alcohol consumption?: NoneDo you use any illicit or recreational drugs?: NoWhich illicit or recreational drugs have you used?: noneWhat is your level of caffeine consumption?: HeavyPublic Health and TravelHave you recently traveled abroad?: NoIn the 14 days before symptom onset, have you had close contact with a laboratory-confirmed COVID-19 while that case was ill?: NoIn the 14 days before symptom onset, have you had close contact with a person who is under investigation for COVID-19 while that person was ill?: NoEducation and OccupationWhat 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 and ExerciseWhat type of diet are you following?: RegularDo you have any dietary restrictions?: NoWhat is your exercise level?: ModerateMarriage and SexualityWhat is your relationship status?: MarriedGender Identity and LGBTQ IdentityGender identity: Identifies as MaleAssigned sex at : MalePronouns: he/himSurgical HistorySurgical History not reviewed (last reviewed 11/03/2022) Appendectomy Lasik Tonsillectomy Vasectomy Gallbladder Surgery - 07/05/2020 Ulner nerve surgery R arm Additional HistoryNone recordedHistory of Present Illness:47 yo male comes in for follow up in management of hashimotos thyroiditis and hypertension likely secondary to anxiety. last seen in December at that time we added propranolol as needed for rapid heart rate. PCP had started SSRI/buspirone-he is taking this three times a day. He does take the propranolol as needed every fews He has been stress eating for the past 1.5 months. He is trying get vegetables and fruits in we added lisinopril for BP control. He does take trazadone to help him sleep. labs from 02/24:FT4 1.2 ng/dLTSH 0.21 uIU/mlFT3 of 3.7 pg/MLTPO 9 IU/mlTSI negglucose 100 mg/dLCr normalLFT normalurine cats/mets normalchromogranin a normalReview of Systems:ROS as noted in the HPIPhysical ExamConstitutional:General Appearance: healthy-appearing, well-nourished, well-developed, not anxious/nervous, and no sweating. Level of Distress: no acute distress. Eyes:Lids and Conjunctivae: no discharge, pallor, lid lag, or periorbital edema and non-injected. Neck:Neck: supple, trachea midline, no masses, and full range of motion. Thyroid: no enlargement or nodules and non-tender. Neck vessels: no carotid bruits or thyroid bruits. Lymph Nodes: no anterior cervical LAD, posterior cervical LAD, submandibular LAD, submental LAD, preauricular LAD, or supraclavicular LAD. Cardiovascular:Apical Impulse: not displaced. Heart Auscultation: normal S1 and S2; no murmurs, rubs, or gallops; and regular rate and rhythm. Lungs:Auscultation: no wheezing, rales/crackles, or rhonchi and breath sounds normal, good air movement, and clear to auscultation. Psychiatric:Mental Status: normal mood and affect, no diffuse anxiety or paranoid ideations, and active and alert.Procedure DocumentationNone recordedAssessment/Plan1. Gary thyroiditis-FT4/FT3 in range. TPO levels down. Continue on thyroid supplement similiar to actalin by Dr. Wily Richards that contains, iodine, magnesium, manganese, carnitine and other elements to help maintain endogenous thyroid function and help to reduce swelling to take in meantime to help reduce time frame to burn out and to help with fatigue, hair thinning etc. Continue on propranolol 10 mg TID as needed for HR over 90 bpm and increased anxiety. On buspar TID for anxiety. Workup for pheochromocytoma negative- urine for cats/mets all normal.E06.3: Autoimmune thyroiditis 2. Impaired fasting glycemia-Recommended he incorporate natural insulin sensitizers such as pears, apples, cinnamon, josiah and sweet potatoes to help mobilize his endogenous insulin. Recommended up to 150 minutes of moderate level activity/exercise weekly. Spent up to 25 minutes preparing to see the patient (eg, review of tests), obtaining and/or reviewing separately obtained history, performing a medically appropriate examination and evaluation, counseling and educating the patient, ordering medications, tests, along with documenting clinical information in the electronic health record, independently interpreting results and communicating results to the patient. Patient can be followed by PCP - she/he is aware of my resignation and last day of April 16. If needed his/her PCP can refer patient to another merchandiser in the area. All questions /concerns answered and refills necessary at visit today.R73.01: Impaired fasting glucose Return to Office Patient will return to the office as needed P[facility] [place] - [place] Vilynx 03/09/2023 14:57:03 Procedures Surgical History Date Name Laterality Status Provider Name and Address Organization Details Recorded Time 07/05/19 21 Gallbladder Surgery completed Not Available [facility] 09/02/2022 04:42:56 [facility] completed [facility] 09/02/2022 04:42:56 [facility] 09/02[facility]22 04:42:56 [facility] 09/02/[facility]22 04:42:56 Lasik completed Not Available [facility] 07/2022 04:42:56 Imaging Results None recorded. Procedure Notes None recorded. Medical Equipment None Reported. Allergies Allergen ID Allergen Name Allergen Category Reaction Reaction Severity Criticality Documentation Date Start Date Code Code System Note Provider Name and Address Organization Details Recorded Time 9007 Naprosyn medicatio n other Not available Not available 09/02/2022 2 RxNorm abdom inal pain Not Available [facility] 05:06:53 Medications Name Sig Start Date Stop Date Status Note LastModified by Organization Details LastModified Time cyclobenz aprine 10 mg tablet Take 1 tablet 3 times a day by oral route as needed for 10 days. active Not Available Not Available No t Available amoxicill in 500 mg capsule active Not Available Not Available Not Available Depo-Medr ol 40 mg/mL suspensio n for injection active Not Available Not Available No t Available trazodone 50 mg tablet Take 1 tablet every day by oral route for 90 days. 09/16 completed Not Available Not Available Not Available cetirizin e 10 mg tablet Take 1 tablet every day by oral route as needed for 90 days. 05/06 completed Not Available Not Available Not Available azithromy ludwin 250 mg tablet Use as directed . active Not Available Not Available No t Available benzonata te 200 mg capsule TK 1 C PO TID FOR 7 DAYS PRN active Not Available Not Available No t Available hydrocodo ne 5 mg-acetam inophen 325 mg tablet TAKE 1 TABLET BY MOUTH EVERY 4 HOURS NEEDED FOR PAIN 10/30 completed Not Available Not Available Not Available Celestone Soluspan 6 mg/mL suspensio n for injection active Not Available Not Available No t Available phentermi ne 15 mg capsule TAKE 1 CAPSULE BY MOUTH EVERY DAY IN THE MORNING 01/01 completed Not Available Not Available Not Available ciproflox acin 500 mg tablet 03/23 completed Not Available Not Available Not Available sulfameth oxazole 800 mg-trimet hoprim 160 mg tablet TK 1 T PO BID FOR 5 DAYS 12/24 completed Not Available Not Available Not Available temazepam 7.5 mg capsule TAKE 1 CAPSULE BY MOUTH EVERY DAY AT BEDTIME 01/01 completed Not Available Not Available Not Available alprazola m 0.5 mg tablet Take 1 tablet every day by oral route as needed for 30 days. 09/08 completed per patient request Not Available Not Available Not Available propranol ol 10 mg tablet TAKE 1 TABLET BY MOUTH THREE TIMES DAILY NEEDED active Not Available Not Available No t Available amoxicill in 875 mg tablet TAKE 1 TABLET BY MOUTH EVERY 12 HOURS FOR 10 DAYS 01/01 completed Not Available Not Available Not Available alprazola m 0.25 mg tablet Take 1 tablet every 12 hours by oral route as needed for 15 days. active Not Available Not Available No t Available prednisol one acetate 1 % eye drops,marry pension SHAKE LIQUID AND INSTILL 1 DROP IN BOTH EYES THREE TIMES DAILY FOR 1 WEEK 03/09 completed Not Available Not Available Not Available lorazepam 0.5 mg tablet TAKE 1 TABLET 30 MINUTES BEFORE PROCEDUR E MUST HAVE SOMEONE DRIVE YOU 06/07 completed Not Available Not Available Not Available trazodone 100 mg tablet TAKE 1 TABLET BY MOUTH EVERY DAY AT BEDTIME active Not Available Not Available No t Available cephalexi n 500 mg capsule TAKE 1 CAPSULE BY MOUTH EVERY 12 HOURS FOR 5 DAYS 08/05 completed Not Available Not Available Not Available buspirone 10 mg tablet TAKE 2 TABLETS BY MOUTH 3 TIMES A DAY active Not Available Not Available No t Available lisinopri l 10 mg tablet TAKE 1 TABLET BY MOUTH EVERY DAY active Not Available Not Available No t Available bupropion HCl 75 mg tablet Take 1 tab po bid (Instead off Sertrali ne). active Not Available Not Available No t Available methimazo le 5 mg tablet TAKE 1 TABLET BY MOUTH EVERY DAY 08/20 completed Not Available Not Available Not Available sertralin e 25 mg tablet Take 1 tablet every day by oral route in the morning for 30 days. active Not Available Not Available No t Available omeprazol e 20 mg capsule,d elayed release Take 1 capsule every day by oral route as directed for 90 days. active Not Available Not Available No t Available hydroxyzi ne HCl 25 mg tablet Take 1 tablet 3 times a day by oral route as needed for 10 days. active Not Available Not Available No t Available mupirocin 2 % topical ointment APPLY A SMALL AMOUNT TO THE AFFECTED AREA BY TOPICAL ROUTE 3 TIMES PER DAY active Not Available Not Available No t Available mirtazapi ne 15 mg tablet TAKE 1 TABLET BY MOUTH EVERY DAY AT BEDTIME 01/01 completed Not Available Not Available Not Available methylpre dnisolone 4 mg tablets in a dose pack FOLLOW PACKAGE DIRECTIO NS 01/01 completed Not Available Not Available Not Available ondansetr on 4 mg disintegr ating tablet Place 1 tablet every 6-8 hours by translin gual route as needed for 5 days. active Not Available Not Available No t Available fluticaso ne propionat e 50 mcg/actua tion nasal spray,marry pension SHAKE LIQUID AND USE 2 SPRAYS IN EACH NOSTRIL EVERY DAY NEEDED 08/05 completed Not Available Not Available Not Available metformin ER 500 mg tablet,ex tended release 24 hr TAKE 1 TABLET BY MOUTH EVERY DAY AT DINNER 08/20 completed Not Available Not Available Not Available sertralin e 50 mg tablet TAKE 1.5 TABLET BY MOUTH EVERY DAY IN THE MORNING active Not Available Not Available No t Available naproxen 500 mg tablet TK 1 T PO BID WITH MEALS active Not Available Not Available No t Available amoxicill in 875 mg-potass ium clavulana te 125 mg tablet TAKE 1 TABLET BY MOUTH EVERY 12 HOURS FOR 10 DAYS 08/05 completed Not Available Not Available Not Available tobramyci n 0.3 %-dexamet hasone 0.1 % eye drops,marry pension 12/03 completed Not Available Not Available Not Available azithromy ludwin 500 mg tablet Take 1 tablet(s ) EVERY FIVE DAYS by oral route. active Not Available Not Available No t Available escitalop eun 10 mg tablet Take 1 tablet every day by oral route as directed for 30 days. 04/01 completed NEVER FILLED IT Not Available Not Available Not Available metaxalon e 800 mg tablet TK 1 T PO TID active Not Available Not Available No t Available moxifloxa ludwin 0.5 % eye drops INSTILL 1 DROP IN BOTH EYES THREE TIMES DAILY FOR 1 WEEK 03/09 completed Not Available Not Available Not Available tadalafil 20 mg tablet TAKE 1 TABLET BY MOUTH ONCE DAILY NEEDED FOR 30 DAYS active Not Available Not Available No t Available Sleep Aid (diphenhy dramine) 11/18 completed Not Available Not Available Not Available ProAir HFA 90 mcg/actua tion aerosol inhaler INHALE 2 PUFFS Q 4 H PRN active Not Available Not Available No t Available Chantix Continuin g Month Box 1 mg tablet Take 1 tablet(s ) 2 TIMES A DAY by oral route. active Not Available Not Available No t Available Chantix Starting Month Box 0.5 mg (11)-1 mg (42) tablets in dose pack Take by oral route. active Not Available Not Available No t Available Virtussin AC 10 mg-100 mg/5 mL oral liquid TK 5 TO 10 ML PO Q 4 TO 6 H PRN COU 12/03 completed Not Available Not Available Not Available Belsomra 15 mg tablet Take 1 tablet every day by oral route at bedtime. active Not Available Not Available No t Available Belsomra 20 mg tablet TAKE 1 TABLET BY MOUTH EVERY DAY AT BEDTIME 08/05 completed Not Available Not Available Not Available Accu-Chek Guide test strips U QID active Not Available Not Available Not Available Bydureon BCise 2 mg/0.85 mL subcutane ous auto-inje ctor Inject 2 mg every week by subcutan eous route with meals for 30 days. 06/18 completed holding this for now per endo 04/03/20 Not Available Not Available Not Available Accu-Chek Fastclix Lancet Drum USE TO TEST FOUR TIMES DAILY. active Not Available Not Available No t Available ID NOW COVID-19 Test Kit USE 1 KIT TODAY DIRECTED 07/24 completed Not Available Not Available Not Available Dayvigo 5 mg tablet Take 1 tablet every day by oral route at bedtime for 30 days. active Not Available Not Available No t Available Vitals Date Recorded Body height Body mass index (BMI) Body weight Body temperature Heart rate Oxygen saturation Oxygen saturation in Arterial blood by Pulse oximetry Systolic blood pressure Diastolic blood pressure Provider Name and Address Organization Details Last Updated DateTime 3 172.72 cm 29.3 kg/m2 47335.3 3 g 97.7 [degF] 94 /min 98 % 98 % 144 mm[Hg] 96 mm[Hg] Nakia Noel MA [facility] [employer] 3 10:03:31 Date Recorded Body height Body mass index (BMI) Body weight Body temperature Heart rate Oxygen saturation Oxygen saturation in Arterial blood by Pulse oximetry Systolic blood pressure Diastolic blood pressure Provider Name and Address Organization Details Last Updated DateTime 3 172.72 cm 29.3 kg/m2 96956.3 3 g 97.5 [degF] 104 /min 98 % 98 % 138 mm[Hg] 88 mm[Hg] Saima Randolph RN [facility] [employer] 3 09:53:04 Date Recorded Body height Body mass index (BMI) Body weight Body temperature Heart rate Oxygen saturation Oxygen saturation in Arterial blood by Pulse oximetry Systolic blood pressure Diastolic blood pressure Provider Name and Address Organization Details Last Updated DateTime 3 172.72 cm 28.9 kg/m2 46737.5 5 g 97.1 [degF] 72 /min 97 % 97 % 142 mm[Hg] 90 mm[Hg] Saima Randolph RN [facility] [employer] 3 16:04:49 Date Recorded Body height Body mass index (BMI) Body weight Body temperature Heart rate Systolic blood pressure Diastolic blood pressure Provider Name and Address Organization Details Last Updated DateTime 3 172.72 cm 27.9 kg/m2 01155.1 2 g 97.6 [degF] 77 /min 114 mm[Hg] 73 mm[Hg] Ani Namrishi NIRAV [facility] 3 09:40:59 Date Recorded Body height Body mass index (BMI) Body weight Body temperature Respiratory rate Heart rate Systolic blood pressure Diastolic blood pressure Provider Name and Address Organization Details Last Updated DateTime 3 172.72 cm 29.8 kg/m2 19943.1 g 98.2 [degF] 16 /min 72 /min 120 mm[Hg] 70 mm[Hg] Charisma Kim RN [facility] 3 11:42:54 Social History Question Answer Notes LastModified by [employer] Details LastModified Time Tobacco Smoking Status Never Smoker Poppy Fabien arthur [facility] 09/08/2022 09:57:00 What Is Your Level Of Caffeine Consumption? Heavy [id number] Information not available 09/02/2022 How Much Tobacco Do You Chew? None Former [id number] Information not available 09/02/2022 In The 14 Days Before Symptom Onset, Have You Had Close Contact With A Laboratory-confirm ed COVID-19 While That Case Was Ill? No [email or web address] Information n ot available 09/08/2022 In The 14 Days Before Symptom Onset, Have You Had Close Contact With A Person Who Is Under Investigation For COVID-19 While That Person Was Ill? No [email or web address] Information not available 09/08/2022 What Type Of Diet Are You Following? REGULAR [id number] Information not available 09/02/2022 Which Illicit Or Recreational Drugs Have You Used? None Information not available 09/08/2022 What Is Your Relationship Status? [id number] Information not available 09/02/2022 Have You Recently Traveled Abroad? No [email or web address] Information not available 09/08/2022 Do You Have Any Dietary Restrictions? No [email or web address] Information not available 09/08/2022 Sex: Male Functional Status Question Answer Note LastModified by [employer] Details LastModified Time Do you use any illicit or recreational drugs? No [email or web address] Information not available 09/08/2022 Do you or have you ever used any other forms of tobacco or nicotine? No Information not available 09/08/2022 What is your level of alcohol consumption? None [id number] Information not available 09/02/2022 Do you or have you ever used smokeless tobacco? 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 Never used electronic cigarettes [email or web address] Information not available 09/08/2022 What is your exercise level? Moderate [id number] Information not available 09/02/2022 Mental Status None recorded. Family History Relationship Description Onset Age of this Age Resolved Age Notes LastModified by Organization Details LastModified Time Unspecified Relation Family history of malignant neoplasm [email or web address] Not available 2022 09:57:00 Mother Arthritis [email or web address] Not availabl e 09/08/2022 09:57:00 Maternal Grandmother Arthritis Not available 01/2023 09:57:00 Maternal Grandmother Hypertensive disorder [id number] Not available 09/02/2022 04:43:04 Paternal Grandfather Malignant neoplastic disease Not available 2022 09:57:00 Maternal Grandfather Hypercholest erolemia [id number] Not available 09/02/2022 04:43:04 Medical History Condition Response BLINDNESS N RHEUMATIC FEVER N KIDNEY STONES N BLADDER PROBLEMS N MRSA N OTHER # 1 N POLIO N LUNG DISEASE/DISORDER N RADIATION / CHEMOTHERAPY N COPD N Other # 2 N BLOOD DISEASES N SURGERY N EAR OR HEARING PROBLEMS N MUMPS N BOWEL PROBLEMS N FEMALE PROBLEMS / INFECTIONS N DEPRESSION (INCLUDING POST ) Y STROKE/TIA N THYROID DISEASE N ULCERS N BENIGN PROSTATIC HYPERPLASIA N MEASLES N CERVICALGIA N TB SKIN TEST N MYOCARDIAL INFARCTION N PARAPELGIA N OBESITY N GERD/NAUSEA N ANEURYSM N URINARY/BLADDER/KIDNEY PROBLEMS N CORONARY ARTERY DISEASE (CAD) N MENIERE'S DISEASE N ADDICTION CONCERNS N ENDOMETRIOSIS N USE OF BLOOD THINNERS N SKIN PROBLEMS N EMPHYSEMA N GASTROINTESTINAL DISORDER N MUSCLE,JOINT OR BONE PROBLEMS N GASTROINTESTINAL BLEEDING N BLOOD CLOTS N ASTHMA N CATARACTS N ERECTILE DYSFUNCTION N GI PROBLEMS Y CHF N Low Testosterone N NEUROPATHY N INFERTILITY N AIDS/HIV N FRACTURES N CHEMOTHERAPY / RADIATION N VISION/EYE PROBLEMS N LIVER DISEASE N MALE HYPOGONADISM N HYPERTENSION Y ANXIETY DISORDER Y BLOOD TRANSFUSION N ANEMIA/BLOOD DISORDER N CHRONIC EAR INFECTIONS N BRONCHITIS N TUBERCULOSIS N GLAUCOMA N FOOT PROBLEM N DIVERTICULITIS N CHICKENPOX N SLEEP APNEA N ALLERGIES/HAYFEVER Y INFECTIOUS DISEASE N HEART ARRHYTHMIA N PROSTATE N INSOMNIA N HIGH CHOLESTEROL / HYPERLIPIDEMIA Y HYPERTHYROIDISM N EYE PROBLEMS N EATING DISORDER N NEUROLOGICAL PROBLEMS N EDEMA N CHRONIC PAIN SYNDROME N HYPOTHYROIDISM Y CAROTID BLOCKAGE N CONSTIPATION N BACK / NECK PROBLEMS N HAVE YOU BEEN HOSPITALIZED OR SEEN IN [facility] ER IN THE PAST YEAR ? N ATHEROSCLEROSIS N BREAST PROBLEMS N DIALYSIS N ECZEMA N FIBROMYALGIA N OSTEOPOROSIS N ARTHRITIS N NO SIGNIFICANT PAST MEDICAL HISTORY N APPENDICITIS N DIABETES, TYPE N BAD TEETH N HEARTBURN / REFLUX N ADD/ADHD N AUTISM SPECTRUM DISORDER (ASD) N HEPATITIS / LIVER DISEASE N PULMONARY DISEASE N GOUT N SLEEP DISORDER N ALZHEIMER'S DISEASE N PAIN N HERPES N DEMENTIA N HEADACHES/MIGRAINES N SEIZURES/EPILEPSY N VASCULAR DISEASE N PACEMAKER N DIZZINESS N HEART DISEASE/HEART PROBLEMS N KIDNEY DISEASE N DEVELOPMENTAL OR BEHAVIORAL DISORDERS N MULTIPLE SCLEROSIS N SCARLET FEVER N MENTAL DISORDER/ILLNESS N CARDIAC ARRHYTHMIA N CANCER: SPECIFY N PNEUMONIA N ATRIAL FIBRILLATION N Gall Stones N PULMONARY EMBOLISM N AUTOIMMUNE DISEASE N Immunizations Vaccine Type Date Status Note Provider Nam e and Address Organization Details Recorded Time COVID-19, mRNA, LNP-S, PF, 30 mcg/0.3 mL dose 10/21/2020 completed Not Available [facility] 3 05:06:33 COVID-19, mRNA, LNP-S, PF, 30 mcg/0.3 mL dose 09/29/2020 completed Not Available [facility] 3 05:06:33 Tdap 12/20/2019 completed Not Available [facility] 09/02/2022 05:06:33 Influenza, split virus, quadrivalent, PF 04/03/2020 completed Not Available [facility] 3 05:06:34 Past Encounters Encounter ID Performer Location Encounter Start Date Encounter Closed Date Diagnosis/Indication Diagnosis SNOMED-CT Code Diagnosis ICD10 Code Diagnosis Note [id number] Rocky Parry MD [facility] [address] [address] 10/08/2020 00:00:00 10/08/2020 08:49:22 [id number] Rocky Parry MD [facility] [place] [address] 10/30/2020 00:00:00 10/30/2020 10:51:50 [id number] MD GAUTAM [facility] [address] [address] [place] [address] 12/11/2020 00:00:00 12/11/2020 10:20:08 [id number] MD ALKA Hollingsworth [facility] [place] [address] [place] [address] 12/16/2020 00:00:00 12/16/2020 13:28:05 [id number] MD GAUTAM [facility] [address] [place] [address] 12/17/2020 00:00:00 12/17/2020 12:30:43 [id number] Rocky Parry MD [facility] [address] [place] [address] 01/08/2021 00:00:00 01/08/2021 09:44:59 [id number] Rocky Parry MD [facility] [address] [place] [address] 04/25/2021 00:00:00 04/25/2021 11:22:30 [id number] MD ALKA Hollingsworth [facility] [place] [address] [place] [address] 05/06/2021 00:00:00 05/06/2021 18:20:09 [id number] Rocky Parry MD [facility] [address] [place] [address] 07/24/2021 00:00:00 07/24/2021 16:49:18 [id number] Rocky Parry MD [facility] [address] [place] [address] 07/28/2021 00:00:00 07/28/2021 15:33:30 [id number] [facility] [address] [place] [address] 08/20/2021 00:00:00 08/21/2021 13:59:54 [id number] [facility] [place] [address] [place] [address] 09/09/2021 00:00:00 09/09/2021 14:37:12 [id number] Janice Deleon MD [facility] [address] [place] [address] 11/18/2021 00:00:00 12/29/2021 08:41:28 [id number] Rocky Parry MD S_[facility] Family [facility] [address] [place] [address] 11/21/2021 00:00:00 11/21/2021 14:06:12 [id number] Za Velez MD [facility] [place] [address] [place] [address] 02/09/2022 00:00:00 02/09/2022 14:01:41 [id number] Janice Deleon MD [facility] [address] [place] [address] 04/20/2022 00:00:00 04/20/2022 12:05:47 [id number] Za Velez MD [facility] [place] [address] [place] [address] 07/03/2022 00:00:00 07/03/2022 12:50:17 [id number] Monalisa Gu MD [facility] Primary Care [facility] [address] [facility] [address] [place] [address] 08/05/2022 00:00:00 08/05/2022 11:21:08 [id number] BRAD Ramírez [facility] [place] [address] [address] [employer] [facility] [address] [facility] [place] [address] 09/08/2022 09:55:45 09/08/2022 10:30:11 Insomnia [id number] G47.00 ChronicNo improvemen t with otc sleep aids. Belsomra is cost prohibitiv e. Will give trial of trazodone as this may also aid in controllin g anxiety sx. Also recommend pt see sleep medicine provider. I have discussed sleep hygiene recommenda tions with patient. Advised good sleep habits and patterns to include:1. Setting a goal for at least 7 to 8 hours of sleep time per day.2. Using the bed mainly for sleep and to go to bed only when tired. If unable to fall asleep after 30 minutes, patient should get out of bed but should not engage in any activity that requires sustained mental alertness. 3. Maintainin g a regular bedtime and wake-up time even on weekends or days off of work.4. Avoiding excessive naps during the daytime. If a nap is necessary, limit it to no more than 30minutes. 5. Minimizing environmen valeriy noise, bright lights, and extremes in bedroom temperatur e.6. Avoiding alcohol, caffeinate d beverages, and nicotine products for at least 6 hours prior to bedtime.7. Avoiding strenuous exercise and large meals for at least 4 hours prior to bedtime. Anxiety [id number] F41.9 ChronicImp roving with buspirone. Highly encouraged pt to consider counseling . Denies any SI/HI at this time. Pt to stop medication and be seen if s/e develop. Essential hypertension [id number] I10 Not well controlled at this timeElevat ion may be due, in part, to personal stressorsE ncouraged pt to increase water intake, reduce caffeine intake, exercise regularly, decrease/e liminate sodium intake, work on weight loss and stress reductionW ill continue to monitor closelyLis inopril 10mg daily [id number] BRAD Ramírez [facility] [place] [address] [facility] [address] [place] [address] 10/14/2022 09:45:56 10/14/2022 10:47:56 Palpitations [id number] R00.2 New problemSus pect sx are d/t uncontroll ed anxiety.EK G wnl in office today. Will check labs.Discu ssed s/s that warrant emergency evaluation . Anxiety [id number] F41.9 Chronic,Im proved, but not to goal.Impro ving with buspirone, but will increase dose per patient request to 10mg-2 tabs TID for anxiety sx. . Highly encouraged pt to consider counseling . Denies any SI/HI at this time. Pt to stop medication and be seen if s/e develop. Insomnia G47.0 0 Not well controlled despite good sleep hygiene.Pt states no improvemen t with melatonin, diphenhydr amine, Zquil, Unisom, or other otc sleep remedies.W ill give trial of temazepam. Reviewed controlled substance agreement requiremen ts. Discussed risk of abuse/misu se. Pt agrees to guard from theft.alejandrina zepam 7.5mg [facility] [id number] Monalisa Gu MD [facility] Primary [facility] [address] [facility] [address] [place] [address] 11/03/2022 15:58:29 11/03/2022 17:38:31 Palpitations [id number] R00.2 No recurrence since last visit.Susp ect sx are d/t uncontroll ed anxiety.EK G wnl in office today.Labs normal except for thyroid function. Overactive thyroid may account for some of pts sx.Discuss ed s/s that warrant emergency evaluation . Anxiety [id number] F41.9 Chronic,Im proved, but not to goal.Samanta nue buspirone 10mg-2 tabs TID for anxiety sx. . Highly encouraged pt to consider counseling . Denies any SI/HI at this time. Pt to stop medication and be seen if s/e develop. Insomnia [id number] G47.0 0 Not well controlled despite good sleep hygiene.Pt states no improvemen t with melatonin, diphenhydr amine, Zquil, Unisom, or other otc sleep remedies. Also failed temazepam. Continue with trazdone 100mg QHS Hyperthyroidism [id number] E05.90 RecurrentT SH 0.198 (10/14/22)P t has appt with Dr. Velez (endocrino logy) on 01/01/23. Pt case sent to Dr. Velez asking if she would like for us to resume pts methimazol e pending his upcoming appt with her. Awaiting response. [id number] Za Velez MD [facility] Endo [facility] [address] [place] [address] 01/01/2023 09:34:28 01/01/2023 10:20:06 Essential hypertension [id number] I10 Send for 24 hour urinary cats/mets to screen for pheochromo cytoma-pat ient has systolic pressures that are sporadic in nature and patient having more anxiety. Gary thyroiditis 21 [id number] E06.3 FT4/FT3 in range. Recommende d a thyroid supplement similiar to actalin by Dr. Wily Richards that contains, iodine, magnesium, manganese, carnitine and other elements to help maintain endogenous thyroid function and help to reduce swelling to take in meantime to help reduce time frame to burn out and to help with fatigue, hair thinning etc. Continue on propranolo l 10 mg TID as needed for HR over 90 bpm and increased anxiety. On buspar TID for anxiety. Spent up to 28 minutes preparing to see the patient (eg, review of tests), obtaining and/or reviewing separately obtained history, performing a medically appropriat e examinatio n and evaluation , counseling and educating the patient, ordering medication s, tests, along with documentin g clinical informatio n in the electronic health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
--- OUTSIDE RECORDS SUMMARY | 2025-01-03 13:42 | XMS_ITS | Clinical Summary ---
Author Organization [facility] Address [address] [place] [address] Care Team Providers Care Sludge Control Attendant Name Role Phone Jose Alfredo Christina MANA Primary Care Provider [phone] Allergies No known active allergies Medications No known medications Active Problems Problem Noted Date Diagnosed Date Palpitations 02/01/2017 Assessment & Plan (02/01/2017 10:30 AM CDT): I offered patient a Holter monitor but he does not want to do it at this time because he cannot were it at work. He states that when he takes a day off he will come and have a monitor placed. I believe that his palpitations are likely secondary to psychologic stress. Labile hypertension 02/01/2017 Assessment & Plan (02/01/2017 10:31 AM CDT): Blood pressure is elevated today. Patient used to take lisinopril for high blood pressure but was taken off because his blood pressure was running low. He is stressed out at this time and therefore recommend re-evaluating blood pressure on another session before starting medication treatment. Nonrheumatic aortic valve insufficiency 02/02/20 17 Assessment & Plan (02/01/2017 10:35 AM CDT): Mild aortic regurgitation. His aortic valve is trileaflet. No indication for antibiotic prophylaxis before dental procedures. Observe Surgical History Surgery Date Site/Laterality Comments TONSILLECTOMY VASECTOMY LASIK APPENDECTOMY Family History Medical History Relation Name Comments Suicide Completion Father Relation Name Status Comments Father (Age 51) Mother Alive Social History Tobacco Use Types Packs/Day Years Used Date Smoking Tobacco: Never Smokeless Tobacco: Current Alcohol Use Standard Drinks/Week Comments Yes 0 (1 standard drink = 0.6 oz pur e alcohol) socially Personal Safety Answer Date Recorded Getting School Help Needed Not on file 09/17 Sex and Gender Information Value Date Recorded Sex Assigned at Not on file 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 Gender Identity Not on file Sexual Orientation Not on file Obstetrics History Last Filed Vital Signs Vital Sign Reading Time Taken Comments Blood Pressure 164/88 02/01/2017 9:59 AM CDT Pulse 84 02/01/2017 9:59 AM CDT Temperature - - Respiratory Rate 14 02/01/2017 9:59 AM CDT Oxygen Saturation - - Inhaled Oxygen Concentration - - Weight 84.4 kg (186 lb) 02/01/2017 9:59 AM CDT Height 170.2 cm (5' 7) 02/01/2017 9:59 AM CDT Body Mass Index 29.13 02/01/2017 9:59 AM CDT Plan of Treatment Not on file Insurance Care Teams Sludge Control Attendant Relationship Specialty Start Date End Date Christina Veliz NP PCP - General Nurse Practitioner 12/29/16
--- OUTSIDE RECORDS SUMMARY | 2025-01-03 13:42 | XMS_ITS | Referral Summary ---
Author Organization [facility] Address [address] [place] [address] Care Team Providers Care Turret Lathe Tender Name Role Phone Poornimashivani Christina MANA Primary Care Provider [phone] Allergies No known active allergies Medications No [...] for antibiotic prophylaxis before dental procedures. 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
== END 2025-01-03 13:30 | disposition home or self-care (01) ==
PROVIDERS: PCP Nurse Practitioner Family; Visit Provider Internal Medicine
DX: I10 Essential (primary) hypertension (principal); R79.89 Other specified abnormal findings of blood chemistry; E04.9 Nontoxic goiter, unspecified
CPT/HCPCS: 70553; A9577

== ENCOUNTER 2025-01-17 11:36 | Outpatient (CLI) | payer BC, SELFPAY ==
--- NOTE | ~2025-01-17 | XR_ITS ---
Lumbosacral Spine: AP and lateral views Clinical History: Pain Findings: The normal lordotic curve is maintained. The vertebral bodies and posterior elements are i ntact. The intervertebral disc spaces are preserved. There is mild to moderate facet arthropathy and lumbar spine. No instability on flexion or extension. The sacroiliac joints are normally outlined. Impression: Mild to moderate facet arthropathy. Reviewed, dictated and finalized at location M. Impression: Mild to moderate facet arthropathy.
--- NOTE | ~2025-01-17 | XR_ITS ---
EXAMINATION: SCOLIOSIS DATE: 01/19/2025 07:02 CDT INDICATION: Back pain for 14 years TECHNIQUE: Standing AP and lateral views of the thoracolumbar spine FINDINGS: There are 12 rib bearing thoracic vertebral bodies and 5 non-rib bearing lumbar type verteb ral bodies. There is no listhesis, compression deformity or vertebral body anomalies. There is dext rocurvature of the thoracic spine centered at T5-6 measuring 7 degrees. There is compensatory levosco liosis of the lower thoracic spine centered at T11 measuring 7 degrees. There are cholecystectomy cli ps. IMPRESSION: 1. Mild S-shaped scoliosis of the thoracolumbar spine. 2. No vertebral body anomalies. Reviewed, dictated and finalized at location B.
--- OUTSIDE RECORDS SUMMARY | 2025-01-17 12:04 | XMS_ITS | Referral Summary ---
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
--- OUTSIDE RECORDS SUMMARY | 2025-01-17 12:04 | XMS_ITS | Clinical Summary ---
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
--- OUTSIDE RECORDS SUMMARY | 2025-01-17 12:04 | XMS_ITS | Data Portability ---
Author Organization [facility], Main Office Address [address] [place] [address] Care Team Providers Care Fundraising Manager Name Role Phone AUSTIN MARQUIS Primary Care Provider [phone] Assessment No assessment recorded. Plan of Treatment [...] 17:04:27 chromograni n A, serum 2022 023 [email or web address] Not available 3 10:12:13 metanephrin es, fractionate d, free, plasma 2022 023 [email or web address] Not available 3 14:15:34 CMP, serum or plasma [address] (Lab), [address] [place], [address], 3 11:47:07 TSH, serum or plasma [address] (Lab), [address] [place], [address], 3 11:47:50 CBC [address] (Lab), [address] [place], [address], 3 11:48:37 Referral None recorded. Procedures None recorded. Surgeries None recorded. Imaging electrocard iogram 2022 023 [email or web address] [facility] [address], [place], [address], 3 10:47:47 Medication Orders propranolol 10 mg tablet 2022 023 [facility]68948, [address], [place], [id number], 3 10:13:32 trazodone 100 mg tablet 2022 023 [facility] #33511, [address], [place], [id number], 3 16:20:52 temazepam 7.5 mg capsule 2022 023 [email or web address] [facility] #83707, [address], [place], [id number], 3 09:42:07 buspirone 10 mg tablet 2022 023 [email or web address] 5 [facility] #71369, [address] [facility], [place], [place], [id number], 3 20:23:44 trazodone 50 mg tablet 2022 023 5 [facility] #62305, [address] [facility], [place], [place], [id number], 3 09:15:35 Patient TargetsNo targets recorded. Patient Instructions Encounter Date Encounter Id Patient Instructions Last Modified By Organization Details Last Modified Time 10/14/2022 [id number] Discussed requirements of the controlled substance agreement [...] being prescribed or dismissal from the practice. [email or web address] Not available 10/14/2022 20:31:43 Reason for Referral None Reported. Results Created Date Observation Date Name Description Value Unit Range Abnormal Flag Note LastModifiedBy Organization Detail LastModifiedTime 10/15/1910/14/2022 CBC W/O DIFFE RENTI AL white blood cells 4.7 x10'3 /uL 4.2-10 .8 Not Available [facility] (Lab) [address] [place], [address], 10/14/2022 18:53:35 10/15/19 23 10/14/2022 CBC W/O DIFFE RENTI AL red blood cells 5.20 x10'6 /uL 4.10-5 .80 Not Available [facility] (Lab) [address] [place], [address], 10/14/2022 18:53:35 10/15/19 23 10/14/2022 CBC W/O DIFFE RENTI AL hemoglobin 15.9 g/dL 13.2-1 7.0 Not Available [facility] (Lab) [address] [facility] [place], [address], 10/14/2022 18:53:35 10/15/19 23 10/14/2022 CBC W/O DIFFE RENTI AL hematocrit 47.4 % 39.3-5 0.0 Not Available [facility] (Lab) [address] [place], [address], 10/14/2022 18:53:35 10/15/19 23 10/14/2022 CBC W/O DIFFE RENTI AL mean red cell volume 91.2 fL 80.0-9 7.0 Not Available [facility] (Lab) [address] [place], [address], 10/14/2022 18:53:35 10/15/19 23 10/14/2022 CBC W/O DIFFE RENTI AL mean red cell hemoglobin 30.6 pg 27.0-3 3.0 Not Available [facility] (Lab) [address] [place], [address], 10/14/2022 18:53:35 10/15/19 23 10/14/2022 CBC W/O DIFFE RENTI AL mean RBC HGB concentratio n 33.5 g/dL 31.0-3 6.0 Not Available [facility] (Lab) [address] [place], [address], 10/14/2022 18:53:35 10/15/19 23 10/14/2022 CBC W/O DIFFE RENTI AL red cell distribution width 12.0 % 11.8-1 5.5 Not Available [facility] (Lab) [address] [place], [address], 10/14/2022 18:53:35 10/15/19 23 10/14/2022 CBC W/O DIFFE RENTI AL platelets 272 x10'3 /uL 150-40 0 Not Available [facility] (Lab) [address] [place], [address], 10/14/2022 18:53:35 10/15/19 23 10/14/2022 CBC W/O DIFFE MICHAEL AL mean platelet volume 9.7 fL 9.0-12 .4 Not Available [facility] (Lab) [address] [place], [address], 10/14/2022 18:53:35 10/15/19 23 10/14/2022 COMPR EHENS FRANCO METAB OLIC PANEL sodium 140 mmol/ L 137-14 5 Not Available [facility] (Lab) [address] [place], [address], 10/14/2022 19:21:11 10/15/19 23 10/14/2022 COMPR EHENS FRANCO METAB OLIC PANEL potassium 3.7 mmol/ L 3.5-5. 1 Not Available [facility] (Lab) [address] [place], [address], 10/14/2022 19:21:11 10/15/19 23 10/14/2022 COMPR EHENS FRANCO METAB OLIC PANEL chloride 103 mmol/ L 98-107 Not Available [facility] (Lab) [address] [place], [address], 10/14/2022 19:21:11 10/15/19 23 10/14/2022 COMPR EHENS FRANCO METAB OLIC PANEL carbon dioxide 21 mmol/ L 22-30 low Not Available [facility] (Lab) [address] [place], [address], 10/14/2022 19:21:11 10/15/19 23 10/14/2022 COMPR EHENS FRANCO METAB OLIC PANEL anion gap 19.7 mmol/ L 14-22 Not Available [facility] (Lab) [address] [place], [address], 10/14/2022 19:21:11 10/15/19 23 10/14/2022 COMPR EHENS FRANCO METAB OLIC PANEL glucose 85 mg/dL 70-99 Not Available [facility] (Lab) [address] [place], [address], 10/14/2022 19:21:11 10/15/19 23 10/14/2022 COMPR EHENS FRANCO METAB OLIC PANEL BUN 12 mg/dL 8-19 Not Available [facility] (Lab) [address] [place], [address], 10/14/2022 19:21:11 10/15/19 23 10/14/2022 COMPR EHENS FRANCO METAB OLIC PANEL creatinine 1.11 mg/dL 0.66-1 .25 Not Available [facility] (Lab) [address] [place], [address], 10/14/2022 19:21:11 10/15/19 23 10/14/2022 COMPR EHENS FRANCO METAB OLIC PANEL GFR >60 Refer ence Range : [place] ge GFR Healt hy Adult : >60 [...] calcu latshey is avail able on the [facility] websi te: https ://di acevedo.korey laird/pr ofess ional s/kdo qi/gf r_cal culat or Not Available [facility] (Lab) [address] [place], [address], 10/14/2022 19:21:11 10/15/1910/14/2022 COMPR EHENS FRANCO METAB OLIC PANEL alkaline phosphatase 57 U/L 38-126 Not Available [facility] (Lab) [address] [place], [address], 10/14/2022 19:21:11 10/15/19 23 10/14/2022 COMPR EHENS FRANCO METAB OLIC PANEL alanine aminotransfe rase 47 U/L 0-50 Not Available [facility] (Lab) [address] [place], [address], 10/14/2022 19:21:11 10/15/19 23 10/14/2022 COMPR EHENS FRANCO METAB OLIC PANEL aspartate aminotransfe rase 31 U/L 15-46 Not Available [facility] (Lab) [address] [place], [address], 10/14/2022 19:21:11 10/15/19 23 10/14/2022 COMPR EHENS FRANCO METAB OLIC PANEL bilirubin, total 1.40 mg/dL 0.20-1 .30 high Not Available [facility] (Lab) [address] [place], [address], 10/14/2022 19:21:11 10/15/19 23 10/14/2022 COMPR EHENS FRANCO METAB OLIC PANEL calcium 9.8 mg/dL 8.4-10 .2 Not Available [facility] (Lab) [address] [place], [address], 10/14/2022 19:21:11 10/15/19 23 10/14/2022 COMPR EHENS FRANCO METAB OLIC PANEL total protein 7.9 g/dL 6.3-8. 2 Not Available [facility] (Lab) [address] [place], [address], 10/14/2022 19:21:11 10/15/19 23 10/14/2022 COMPR EHENS FRANCO METAB OLIC PANEL albumin 5.2 g/dL 3.4-5. 0 high Not Available [facility] (Lab) [address] [place], [address], 10/14/2022 19:21:11 10/15/19 23 10/14/2022 COMPR EHENS FRANCO METAB OLIC PANEL globulin 2.7 g/dL 2.6-4. 2 Not Available [facility] (Lab) [address] [place], [address], 10/14/2022 19:21:11 10/15/19 23 10/14/2022 COMPR EHENS FRANCO METAB OLIC PANEL A/G ratio 1.9 ratio 1.0-2. 0 Not Available [facility] (Lab) [address] [place], [address], 10/14/2022 19:21:11 10/15/19 23 10/14/2022 TSH thyroid-stim ulating hormone 0.198 uIU/m L 0.465- 4.680 low Not Available [facility] (Lab) [address] [place], [address], 10/14/2022 20:05:06 12/29/19 23 12/30/2022 COMPR EHENS FRANCO METAB OLIC PANEL glucose 101 mg/dL 65-99 high Fasti ng refer ence inter vicenta For someo ne witho ut known diabe antonio, a gluco se value betwe en 100 and 125 mg/dL is consi stent with predi abete s and shoul d be confi rmed with a follo w-up test. Not Available [facility] [address] [address] [place], [address], 12/30/2022 12:05:36 12/29/19 23 12/30/2022 COMPR EHENS FRANCO METAB OLIC PANEL urea nitrogen (BUN) 15 mg/dL 7-25 normal Not Available [facility] [address] [address] [place], [address], 12/30/2022 12:05:36 12/29/19 23 12/30/2022 COMPR EHENS FRANCO METAB OLIC PANEL creatinine 1.20 mg/dL 0.60-1 .29 normal Not Available [facility] [address] [address] [place], [address], 12/30/2022 12:05:36 12/29/19 23 12/30/2022 COMPR EHENS [...] kdoqi /gfr% 5Fcal culat or Not Available [address] [address] [place], [address], 12/30/2022 12:05:36 12/29/19 23 12/30/2022 COMPR EHENS FRANCO METAB OLIC PANEL BUN/creatini ne ratio NOT APPLIC ABLE (calc ) 6-22 Not Available [facility] [address] [address] [place], [address], 12/30/2022 12:05:36 12/29/19 23 12/30/2022 COMPR EHENS FRANCO METAB OLIC PANEL sodium 139 mmol/ L 135-14 6 normal Not Available [facility] [address] [address] [place], [address], 12/30/2022 12:05:36 12/29/19 23 12/30/2022 COMPR EHENS FRANCO METAB OLIC PANEL potassium 4.0 mmol/ L 3.5-5. 3 normal Not Available [address], [address], 12/30/2022 12:05:36 12/29/19 23 12/30/2022 COMPR EHENS FRANCO METAB OLIC PANEL chloride 105 mmol/ L 98-110 normal Not Available [address], [address], 12/30/2022 12:05:36 12/29/19 23 12/30/2022 COMPR EHENS FRANCO METAB OLIC PANEL carbon dioxide 27 mmol/ L 20-32 normal Not Available [address], [address], 12/30/2022 12:05:36 12/29/19 23 12/30/2022 COMPR EHENS FRANCO METAB OLIC PANEL calcium 9.5 mg/dL 8.6-10 .3 normal Not Available [address], [address], 12/30/2022 12:05:36 12/29/19 23 12/30/2022 COMPR EHENS FRANCO METAB OLIC PANEL protein, total 6.7 g/dL 6.1-8. 1 normal Not Available [address], [address], 12/30/2022 12:05:36 12/29/19 23 12/30/2022 COMPR EHENS FRANCO METAB OLIC PANEL albumin 4.7 g/dL 3.6-5. 1 normal Not Available [address], [address], 12/30/2022 12:05:36 12/29/19 23 12/30/2022 COMPR EHENS FRANCO METAB OLIC PANEL globulin 2.0 g/dL_ (calc ) 1.9-3. 7 normal Not Available [address], [address], 12/30/2022 12:05:36 12/29/19 23 12/30/2022 COMPR EHENS FRANCO METAB OLIC PANEL albumin/glob ulin ratio 2.4 (calc ) 1.0-2. 5 normal Not Available [address], [address], 12/30/2022 12:05:36 12/29/19 23 12/30/2022 COMPR EHENS FRANCO METAB OLIC PANEL bilirubin, total 0.6 mg/dL 0.2-1. 2 normal Not Available [address], [address], 12/30/2022 12:05:36 12/29/19 23 12/30/2022 COMPR EHENS FRANCO METAB OLIC PANEL alkaline phosphatase 46 U/L 36-130 normal Not Available [facility] [address] [address] [place], [address], 12/30/2022 12:05:36 12/29/19 23 12/30/2022 COMPR EHENS FRANCO METAB OLIC PANEL AST 10 U/L 10-40 normal Not Available [address], [address], 12/30/2022 12:05:36 12/29/19 23 12/30/2022 COMPR EHENS FRANCO METAB OLIC PANEL ALT 11 U/L 9-46 normal Not Available [address], [address], 12/30/2022 12:05:36 12/29/19 23 12/30/2022 THYRO ID PEROX IDASE ANTIB ODIES thyroid peroxidase antibodies 13 IU/mL <9 high Not Available [address], [address], 12/30/2022 12:05:36 12/29/19 23 12/30/2022 T3, FREE T3, free 3.9 pg/mL 2.3-4. 2 normal Not Available [address], [address], 12/30/2022 12:05:37 12/29/19 23 12/30/2022 TSH+F REE T4 TSH 0.08 mIU/L 0.40-4 .50 low Not Available [address], [address], 12/30/2022 12:05:37 12/29/19 23 12/30/2022 TSH+F REE T4 T4, free 1.3 NG/dL 0.8-1. 8 normal Not Available [address], [address], 12/30/2022 12:05:37 01/07/20 23 01/12/2023 METAN EPHRI BARBARA, FRACT , FREE, LC/MS /MS, PLASM A metanephrine , free 49 pg/mL <=57 This test was devel oped and its roni tical perfo rmanc e alo cteri stics have been deter mined by [employer] radha collier [place], [place]. It has not been clear ed or appro vargas by the U.S. Food and Drug Admin istra tion. This assay has been valid ated pursu ant to the CLIA regul ation s and is used for clini jason purpo ses. Not Available [facility] [address] [address] [place], [address], 01/12/2023 14:15:34 01/07/20 23 01/12/2023 METAN EPHRI BARBARA, FRACT , FREE, LC/MS /MS, PLASM A normetanephr ine, free 67 pg/mL <=148 This test was devel oped and its roni tical perfo rmanc e alo cteri stics have been deter mined by [employer] ostic [facility] [place]. It has not been clear ed or appro vargas by the U.S. Food and Drug Admin istra tion. This assay has been valid ated pursu ant to the CLIA regul ation s and is used for clini jason purpo ses. Not Available [facility] [address] [address], [place], [address], 01/12/2023 14:15:34 01/07/20 23 01/12/2023 METAN EPHRI BARBARA, FRACT , FREE, LC/MS /MS, PLASM A total, free (MN+nmn) 116 pg/mL <=205 For addit ional infor luciano gallagher e refer to http: //[facility] patricia blackwell.que stdia gnost ics.c om/fa q/Met Fract Free (This link is being provi ded for infor matio nal/e ducat io infor matio nal/e ducat ional purpo ses only. ) [place] tions >4-fo ld upper refer ence range : stron gly sugge stive of a pheoc hromo cytom a(1). [place] tions >1- 4-fol d upper refer ence [...] mined by [facility] [place]. It has not been clear ed or appro vargas by the U.S. Food and Drug Admin istra tion. This assay has been valid ated pursu ant to the CLIA regul ation s and is used for clini jason purpo ses. Not Available [facility] [address] [address] , [place], [address], 01/12/2023 14:15:34 01/07/20 23 01/12/2023 CHROM OGRAN [...] romet ry metho d. Value s obtai marlon from diffe rent assay metho ds canno t be used inter amos eably . Chrom ogran in A level s, regar dless of value , shoul d not be inter prete d as absol brian evide nce of the prese nce or absen ce of disea se. This test was devel oped and its roni tical perfo rmanc e alo cteri stics have been deter mined by [facility] [employer] [place] [employer] . It has not been clear ed or appro vargas by FDA. This assay has been valid ated pursu ant to the CLIA regul ation s and is used for clini jason purpo ses. Not Available [facility] [address] [address] [place], [address], 01/12/2023 14:15:35 01/13/20 23 01/25/2023 CATEC HOLAM NAYELI, FRACT , 24 HOUR URINE W/O CREAT 24 HR urine volume 2800 mL/24 _h Not Available [facility] [address] [address] [place], [address], 01/25/2023 05:54:01 01/13/20 23 01/25/2023 CATEC HOLAM NAYELI, FRACT , 24 HOUR URINE W/O CREAT epinephrine, 24 HR urine see note Resul ts are below the repor table range for this roni te, which is 2.0 mcg/L . This test was devel oped and its roni tical perfo rmanc e alo cteri stics have been deter mined by [employer] [facility]stic [facility] [employer] [place], [place]. It has not been clear ed or appro vargas by the U.S. Food and Drug Admin istra tion. This assay has been valid ated pursu ant to the CLIA regul ation s and is used for clini jason purpo ses. Not Available [facility] [address] [address] [place], [address], 01/25/2023 05:54:01 01/13/20 23 01/25/2023 CATEC HOLAM NAYELI, FRACT , 24 HOUR URINE W/O CREAT norepinephri ne, 24 HR ur 29 mcg/2 4_h 15-100 This test was devel oped and its roni tical perfo rmanc e alo cteri stics have been deter mined by [employer] [facility] [employer], [place]. It has not been clear ed or appro vargas by the U.S. Food and Drug Admin istra tion. This assay has been valid ated pursu ant to the CLIA regul ation s and is used for clini jason purpo ses. Not Available [facility] [address] [address] [place], [address], 01/25/2023 05:54:01 01/13/20 23 01/25/2023 CATEC HOLAM NAYELI, FRACT , 24 HOUR URINE W/O CREAT calculated total (E+ne) 29 mcg/2 4_h 26-121 This test was devel oped and its roni tical perfo rmanc e alo cteri stics have been deter mined by [employer] [facility]stic [facility] [place]. It has not been clear ed or appro vargas by the U.S. Food and Drug Admin istra tion. This assay has been valid ated pursu ant to the CLIA regul ation s and is used for clini jason purpo ses. Not Available [facility] [address], [address], 01/25/2023 05:54:01 01/13/20 23 01/25/2023 CATEC HOLAM NAYELI, FRACT , 24 HOUR URINE W/O CREAT dopamine, 24 HR urine 162 mcg/2 4_h 52-480 This test was devel oped and its roni tical perfo rmanc e alo cteri stics have been deter mined by [employer] [facility]stic s [employer] [place]. It has not been clear ed or appro vargas by the U.S. Food and Drug Admin istra tion. This assay has been valid ated pursu ant to the CLIA regul ation s and is used for clini jason purpo ses. Not Available [facility] [address], [address], 01/25/2023 05:54:01 01/13/20 23 01/25/2023 METAN EPHRI BARBARA, FRACT . LC/MS /MS, 24 HR URINE total volume 2800 mL Not Available [facility] [address] [place], [address], 01/25/2023 05:54:02 01/13/20 23 01/25/2023 METAN EPHRI BARBARA, FRACT . LC/MS /MS, 24 HR URINE metanephrine 187 mcg/2 4_h 58-203 This test was devel oped and its roni tical perfo rmanc e alo cteri stics have been deter mined by [employer] [facility]stic [facility] [place]. It has not been clear ed or appro vargas by the U.S. Food and Drug Admin istra tion. This assay has been valid ated pursu ant to the CLIA regul ation s and is used for clini jason purpo ses. Not Available [facility] [address] [address] [place], [address], 01/25/2023 05:54:02 01/13/20 23 01/25/2023 METAN EPHRI BARBARA, FRACT . LC/MS /MS, 24 HR URINE normetanephr ine 157 mcg/2 4_h 88-649 This test was devel oped and its roni tical perfo rmanc e alo cteri stics have been deter mined by [employer] [facility] [place]. It has not been clear ed or appro vargas by the U.S. Food and Drug Admin istra tion. This assay has been valid ated pursu ant to the CLIA regul ation s and is used for clini jason purpo ses. Not Available [facility] [address] [address] [place], [address], 01/25/2023 05:54:02 01/13/20 23 01/25/2023 METAN EPHRI [...] d for confi rmati on. Not Available [facility] [address], [address], 01/25/2023 05:54:02 02/27/2003/03/2023 COMPR EHENS FRANCO METAB OLIC PANEL glucose 100 mg/dL 65-99 high Fasti ng refer ence inter vicenta For someo ne witho ut known diabe antonio, a gluco se value betwe en 100 and 125 mg/dL is consi stent with predi abete s and shoul d be confi rmed with a follo w-up test. Not Available [address], [address], 03/03/2023 19:50:01 02/27/2003/03/2023 COMPR EHENS FRANCO METAB OLIC PANEL urea nitrogen (BUN) 12 mg/dL 7-25 normal Not Available [address], [address], 03/03/2023 19:50:01 02/27/20 23 03/03/2023 COMPR EHENS FRANCO METAB OLIC PANEL creatinine 1.28 mg/dL 0.60-1 .29 normal Not Available [address], [address], 03/03/2023 19:50:01 02/27/20 23 03/03/2023 COMPR EHENS FRANCO METAB OLIC PANEL eGFR 70 mL/mi n/1.7 3m2 > or = 60 normal Not Available [facility] [address], [address], 03/03/2023 19:50:01 02/27/2003/03/2023 COMPR EHENS FRANCO METAB OLIC PANEL BUN/creatini ne ratio SEE NOTE: (calc ) 6-22 Not Repor elsie: BUN and Creat inine are withi n refer ence range . Not Available [facility] [address], [address], 03/03/2023 19:50:01 02/27/20 23 03/03/2023 COMPR EHENS FRANCO METAB OLIC PANEL sodium 139 mmol/ L 135-14 6 normal Not Available [address], [address], 03/03/2023 19:50:01 02/27/20 23 03/03/2023 COMPR EHENS FRANCO METAB OLIC PANEL potassium 4.1 mmol/ L 3.5-5. 3 normal Not Available [address], [address], 03/03/2023 19:50:01 02/27/20 23 03/03/2023 COMPR EHENS FRANCO METAB OLIC PANEL chloride 105 mmol/ L 98-110 normal Not Available [address], [address], 03/03/2023 19:50:01 02/27/20 23 03/03/2023 COMPR EHENS FRANCO METAB OLIC PANEL carbon dioxide 26 mmol/ L 20-32 normal Not Available [address], [address], 03/03/2023 19:50:01 02/27/20 23 03/03/2023 COMPR EHENS FRANCO METAB OLIC PANEL calcium 9.2 mg/dL 8.6-10 .3 normal Not Available [address], [address], 03/03/2023 19:50:01 02/27/20 23 03/03/2023 COMPR EHENS FRANCO METAB OLIC PANEL protein, total 6.3 g/dL 6.1-8. 1 normal Not Available [address], [address], 03/03/2023 19:50:01 02/27/20 23 03/03/2023 COMPR EHENS FRANCO METAB OLIC PANEL albumin 4.6 g/dL 3.6-5. 1 normal Not Available [address], [address], 03/03/2023 19:50:01 02/27/20 23 03/03/2023 COMPR EHENS FRANCO METAB OLIC PANEL globulin 1.7 g/dL_ (calc ) 1.9-3. 7 low Not Available [address], [address], 03/03/2023 19:50:01 02/27/20 23 03/03/2023 COMPR EHENS FRANCO METAB OLIC PANEL albumin/glob ulin ratio 2.7 (calc ) 1.0-2. 5 high Not Available [address], [address], 03/03/2023 19:50:01 02/27/20 23 03/03/2023 COMPR EHENS FRANCO METAB OLIC PANEL bilirubin, total 0.5 mg/dL 0.2-1. 2 normal Not Available [address], [address], 03/03/2023 19:50:01 02/27/20 23 03/03/2023 COMPR EHENS FRANCO METAB OLIC PANEL alkaline phosphatase 45 U/L 36-130 normal Not Available [address], [address], 03/03/2023 19:50:01 02/27/20 23 03/03/2023 COMPR EHENS FRANCO METAB OLIC PANEL AST 12 U/L 10-40 normal Not Available [address], [address], 03/03/2023 19:50:01 02/27/20 23 03/03/2023 COMPR EHENS FRANCO METAB OLIC PANEL ALT 14 U/L 9-46 normal Not Available [address], [address], 03/03/2023 19:50:01 08/25/03/03/2023 TSI (THYR OID STIMU LATIN G IMMUN OGLOB ULIN) tsi <89 %_bas sophia <140 Thyro id stimu latin g immun oglob ulins (TSI) can engag e the TSH binding end stitcher tors resul ting in hyper thyro idism [...] for clini jason purpo ses. Not Available [facility] [address] [address], [place], [address], 03/03/2023 19:50:02 02/27/20 23 03/03/2023 THYRO ID PEROX IDASE ANTIB ODIES thyroid peroxidase antibodies 9 IU/mL <9 high Not Available [address], [address], 03/03/2023 19:50:04 02/27/20 23 03/03/2023 T4, FREE T4, free 1.2 NG/dL 0.8-1. 8 normal Not Available [address], [address], 03/03/2023 19:50:04 02/27/20 23 03/03/2023 TSH TSH 0.21 mIU/L 0.40-4 .50 low Not Available [address], [address], 03/03/2023 19:50:05 02/27/20 23 03/03/2023 T3, FREE T3, free 3.7 pg/mL 2.3-4. 2 normal Not Available [address], [address], 03/03/2023 19:50:06 10/15/19 23 elect niranjan garcia am No observ ation record ed. [email or web address] [facility] [address], [place], [address], 10/14/2022 10:04:15 Result Notes None recorded. Problems Name Problem SNOMED Code Status Onset Date Resolution Date Notes Provider Name and Address Organization Details Recorded Time Sukhjinderdeanne l hyperten mary 78893329 Active 2022 BRAD Ramírez [address] [facility], [place] [address], [place], [address] , [employer] 3 10:24:58 Palpitat ions 07646949 Active 2022 BRAD Ramírez [address] [facility], [facility] [address], [place], [address] , [employer] [facility] [employer] 3 10:06:08 Chronic post-tra umatic stress disorder 582240358 Active 2022 [place], [facility] [address], [place], [address] , [facility] [employer] [facility] [employer] 3 10:06:45 Thyroid dysfunct ion 677937916 Active 2022 [place] Marquis [employer] [address] [facility], [address], [place], [address] , [facility] [employer] [facility] [employer] 3 12:29:50 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 [place] [facility] [address] [facility], [facility] [address], [place], [address] , [facility] [facility] [employer] 3 17:14:56 Tobacco user 635934665 Active Not Available [facility] 3 04:53:57 Acne 93344229 Completed Not Available [facility] 3 04:53:57 Cervical lymphade nopathy 764825910 Active 2019 Not Available [facility] 3 04:53:57 Lumbar radiculo sarmad 513562484 Completed Not Available [facility] 3 04:53:58 Follicul itis 02429944 Completed Not Available [facility] 3 04:53:58 Disorder of thyroid gland 33739572 Completed Not Available [facility] 3 04:53:58 Constipa tion 98154841 Completed Not Available [facility] 3 04:53:58 Acute sinusiti s 19192008 Completed Not Available [facility] 3 04:53:58 Pain of right elbow joint 39957385083 481896 Active 2019 Not Available [facility] 3 04:53:58 Idiopath ic hypercal cemia 176131024 Active 2019 Not Available [facility] 3 04:53:58 Insomnia 017362761 Active 2022 Not Available [facility] 3 04:53:58 Polyp of gallblad curtis 607294372 Active 2019 Not Available [facility] 3 04:53:58 Anxiety disorder 020242235 Active 2019 Not Available [facility] 3 04:53:59 Spasm of back muscles 644821478 Completed Not Available [facility] 3 04:53:59 Abdomina l pain 75994811 Completed Not Available [facility] 3 04:53:59 Hashimot o thyroidi tis 41885881 Active 2021 Not Available [facility] 3 04:53:59 Feeling stressed 755260590 Completed Not Available [facility] 3 04:53:59 Thyroid nodule 145084805 Active Not Available [facility] 3 04:53:59 Overweig ht 818360304 Active 2019 Not Available [facility] 3 04:53:59 Eruption 371725233 Completed Not Available [facility] 3 04:53:59 Jaw pain 784256730 Active 2019 Not Available [facility] 3 04:54:00 Cut of head 454795807 Completed Not Available [facility] 3 04:54:00 Tenderne ss of thyroid 759848877 Completed Not Available [facility] 3 04:54:00 Hyperthy roidism 94916819 Active 2019 Not Available [facility] 3 04:54:00 Depressi ve disorder 85596309 Active 2020 Not Available [facility] 3 04:54:00 Seasonal allergic rhinitis 387262636 Active 2020 Not Available [facility] 3 04:54:00 Dyslipid emia 583258659 Active 2021 Not Available [facility] 3 04:54:01 Panic disorder 406403565 Active 2021 Not Available [facility] 3 04:54:01 Migraine 83682790 Active 2016 occular migraine s Not Available [facility] 3 04:54:01 Hyperten sive disorder 90743503 Active 2019 Not Available [facility] 3 04:54:01 Impaired fasting glycemia 348793819 Active 2021 Not Available [facility] 3 04:54:01 Ingrowin g nail 402138827 Completed Not Available [facility] 3 04:54:02 History of cholecys tectomy 343761715 Active 2020 Not Available [facility] 3 04:54:02 Disorder of lumbar disc 080607844 Completed Not Available [facility] 3 04:54:02 Anxiety 30105613 Active 2021 Not Available [facility] 3 04:54:02 Hyperlip idemia 86924031 Active 2019 Not Available [facility] 3 04:54:03 Essentia l hyperten mary 84611786 Completed BRAD Ramírez [address], [place], [address] , [employer] 3 10:24:58 Posterio r rhinorrh ea 83301236 Completed Not Available [facility] 3 04:54:03 Spinal stenosis 78681646 Completed Not Available [facility] 3 04:54:03 Epigastr ic pain 57181017 Completed 202010/30/2020 Not Available [facility] 3 04:54:04 Palpitat ions 90408010 Completed BRAD Ramírez [address], [place], [address] , [employer] 3 10:06:08 Upper abdomina l pain 34258196 Completed Not Available [facility] 3 04:54:04 COVID-19 524875160 Active 2021 Not Available [facility] 3 04:54:04 Fatigue 08585692 Active 2019 Not Available [facility] 3 04:54:04 Erectile dysfunct ion 448201011 Active 2021 Not Available [facility] 3 04:54:05 Tobacco dependen ce syndrome 93913944 Active 2019 Not Available [facility] 3 04:54:05 Problem Notes Documentation Provider Name and Address Organization Details Recorded Time Endocrinology Consult Note : [facility] [address], [place] [address]YCODW, Matthew R (id #[id number], : 1975) Documents [...] received this fax in error, please visit [email or web address] to notify the sender and confirm that the information will be destroyed. If you do not have internet access, please call to notify the sender and confirm that the information will be destroyed. Thank you for your attention and cooperation. [ID:[id number]][facility] [employer] [facility] [address] [place] [address] , Date: 01/01/2023RE: Christiano Beckham, : 1975, PT ID #[id number] Marquis [facility], I would like to thank you [...] FU ON LABS 01/01/2023 - 08:30AM - [facility] Endo [place] Problems:Reviewed Problems Thyroid nodule [...] DrumUSE TO TEST FOUR TIMES DAILY.05/30/21 filled MIGRATION.[id number] Accu-Chek Guide test stripsU QID03/19/20 filled MIGRATION.[id number] busPIRone 10 mg tabletTAKE 2 TABLETS BY MOUTH 3 TIMES A DAY12/10/22 filled surescripts lisinopriL 10 mg tabletTAKE 1 TABLET BY MOUTH EVERY DAY12/10/22 filled surescripts propranoloL 10 mg tabletTAKE 1 TABLET BY MOUTH THREE TIMES DAILY EICCCX67/30/23 prescribed Za Velez MD tadalafiL 20 mg tabletTAKE 1 TABLET BY MOUTH ONCE DAILY NEEDED FOR 30 DAYS11/12/22 filled surescripts traZODone 100 mg tabletTAKE 1 TABLET BY MOUTH EVERY DAY AT WFBFVOY44/08/23 filled surescripts Mens Once daily multivitamin Family [...] he chooses to go outside of the [facility] system to obtain labwork he was advised [...] NEEDED Qty: (270) tablet Refills: 1 Pharmacy: [id number] Return to Office Za Velez MD for Follow Up 15 at [facility] Kiersten [place] on 04/29/2023 at 10:15 AM [place] [facility] [employer] [facility] 01/01/2023 12:37:10 Endocrinology Consult Note : [facility] [address], [place] [address]PNSLKChristiano (id #[id number], : 1975) Documents sent via [...] received this fax in error, please visit [email or web address] to notify the sender and confirm that the information will be destroyed. If you do not have internet access, please call to notify the sender and confirm that the information will be destroyed. Thank you for your attention and cooperation. [ID:[id number]][facility] [employer] [address] [place] [address] , Date: 03/09/2023RE: Christiano Beckham, : 1975, PT ID #[id number] Marquis [facility], I would like to thank you [...] FU ON LABS 03/09/2023 - 11:30AM - [facility] Kiersten [place] Problems:Reviewed Problems Thyroid nodule [...] DrumUSE TO TEST FOUR TIMES DAILY.05/30/21 filled MIGRATION.[id number] Accu-Chek Guide test stripsU QID03/19/20 filled MIGRATION.[id number] busPIRone 10 mg tabletTAKE 2 TABLETS BY MOUTH 3 TIMES A DAY02/28/23 filled surescripts lisinopriL 10 mg tabletTAKE 1 TABLET BY MOUTH EVERY DAY02/28/23 filled surescripts propranoloL 10 mg tabletTAKE 1 TABLET BY MOUTH THREE TIMES DAILY WHZIEU84/30/23 filled surescripts tadalafiL 20 mg tabletTAKE 1 TABLET BY MOUTH ONCE DAILY NEEDED FOR 30 DAYS11/12/22 filled surescripts traZODone 100 mg tabletTAKE 1 TABLET BY MOUTH EVERY DAY AT ZKHNGAH29/27/23 filled surescripts Mens Once daily multivitamin Family [...] his/her PCP can refer patient to another 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 All questions /concerns answered and refills necessary at visit today.R73.01: Impaired fasting glucose Return to Office Patient will return to the office as needed [place] [employer] 03/09/2023 14:57:03 Procedures Surgical History Date Name Laterality Status Provider Name and Address Organization Details Recorded Time 07/05/19 21 Gallbladder Surgery completed Not Available [facility] 09/02/2022 04:42:56 Tonsillectomy completed Not Available [facility] 09/02/2022 04:42:56 Appendectomy completed [facility] 09/02/2022 04:42:56 vasectomy completed Not Available [facility] 0 09/02/2022 04:42:56 Lasik completed Not Available [facility] 07/2022 04:42:56 Imaging Results None recorded. Procedure Notes None recorded. Medical Equipment None Reported. Allergies Allergen ID Allergen Name Allergen Category Reaction Reaction Severity Criticality Documentation Date Start Date Code Code System Note Provider Name and Address Organization Details Recorded Time 9007 Naprosyn medicatio n other Not available Not available 09/02/2022 2 RxNorm abdom inal pain Not Available [facility] 05:06:53 Medications Name Sig Start Date Stop [...] in Arterial blood by Pulse oximetry Systolic And Diastolic Provider Name and Address Organization Details Last Updated DateTime 3 172.72 cm 29.3 kg/m2 58737.3 3 g 97.7 [degF] 94 /min 98 % 98 % 144/96 mm[Hg] Nakia Noel MA [facility] [employer] [facility] 3 10:03:31 Date Recorded Body height Body mass index (BMI) Body weight Body temperature Heart rate Oxygen saturation Oxygen saturation in Arterial blood by Pulse oximetry Systolic And Diastolic Provider Name and Address Organization Details Last Updated DateTime 3 172.72 cm 29.3 kg/m2 95339.3 3 g 97.5 [degF] 104 /min 98 % 98 % 138/88 mm[Hg] Saima Randolph RN [facility] [employer] [facility] 3 09:53:04 Date Recorded Body height Body mass index (BMI) Body weight Body temperature Heart rate Oxygen saturation Oxygen saturation in Arterial blood by Pulse oximetry Systolic And Diastolic Provider Name and Address Organization Details Last Updated DateTime 3 172.72 cm 28.9 kg/m2 12642.5 5 g 97.1 [degF] 72 /min 97 % 97 % 142/90 mm[Hg] Saima Randolph RN [facility] [employer] [facility] 3 16:04:49 Date Recorded Body height Body mass index (BMI) Body weight Body temperature Heart rate Systolic And Diastolic Provider Name and Address Organization Details Last Updated DateTime 3 172.72 cm 27.9 kg/m2 69849.1 2 g 97.6 [degF] 77 /min 114/73 mm[Hg] NIRAV Noriega [facility] [employer] 3 09:40:59 Date Recorded Body height Body mass index (BMI) Body weight Body temperature Respiratory rate Heart rate Systolic And Diastolic Provider Name and Address Organization Details Last Updated DateTime 3 172.72 cm 29.8 kg/m2 50195.1 g 98.2 [degF] 16 /min 72 /min 120/70 mm[Hg] Charisma Kim RN [facility] 3 11:42:54 Social History Question Answer Notes LastModified by [employer] Details LastModified Time Tobacco Smoking Status Never Smoker Poppy Fabien ar[place], [place] [facility] [employer] 09/08/2022 09:57:00 What Is Your Level Of Caffeine Consumption? Heavy MIGRATION.844277 5491 Information not available 09/02/2022 How Much Tobacco Do You Chew? None Former MIGRATION.844344 5036 Information not available 09/02/2022 In The 14 Days Before Symptom Onset, Have You Had Close Contact With A Laboratory-confirm ed COVID-19 While That Case Was Ill? No [email or web address] Information n ot available 09/08/2022 In The 14 Days Before Symptom Onset, Have You Had Close Contact With A Person Who Is Under Investigation For COVID-19 While That Person Was Ill? No Information not available 09/08/2022 What Type Of Diet Are You Following? REGULAR MIGRATION.408751 6722 Information not available 09/02/2022 Which Illicit Or Recreational Drugs Have You Used? None [email or web address] Information not available 09/08/2022 What Is Your Relationship Status? MIGRATION.667919 9351 Information not available 09/02/2022 Have You Recently Traveled Abroad? No [email or web address] Information not available 09/08/2022 Do You Have Any Dietary Restrictions? No [email or web address] Information not available 09/08/2022 Sex: Male Functional Status Question Answer Note LastModified by [employer] Details LastModified Time Do you use any illicit or recreational drugs? No [email or web address] Information not available 09/08/2022 Do you or have you ever used any other forms of tobacco or nicotine? No Information not available 09/08/2022 What is your level of alcohol consumption? None MIGRATION.697324 1132 Information not available 09/02/2022 Do you or have you ever used smokeless tobacco? 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 Never used electronic cigarettes [email or web address] Information not available 09/08/2022 What is your exercise level? Moderate MIGRATION.190253 4979 Information not available 09/02/2022 Mental Status None recorded. Family History Relationship Description Onset Age of this Age Resolved Age Notes LastModified by Organization Details LastModified Time Unspecified Relation Family history of malignant neoplasm Not available 2022 09:57:00 Mother Arthritis Not availabl e 09/08/2022 09:57:00 Maternal Grandmother Arthritis Not available 01/2023 09:57:00 Maternal Grandmother Hypertensive disorder MIGRATION.019 [id number] Not available 09/02/2022 04:43:04 Paternal Grandfather Malignant neoplastic disease [email or web address] Not available 2022 09:57:00 Maternal Grandfather Hypercholest erolemia MIGRATION.834 [id number] Not available 09/02/2022 04:43:04 Medical History Condition Response BLINDNESS N RHEUMATIC FEVER N KIDNEY STONES N BLADDER PROBLEMS N MRSA N OTHER # 1 N POLIO N LUNG DISEASE/DISORDER N RADIATION / CHEMOTHERAPY N COPD N Other # 2 N BLOOD DISEASES N SURGERY N EAR OR HEARING PROBLEMS N MUMPS N FEMALE PROBLEMS / INFECTIONS N DEPRESSION (INCLUDING POST ) Y BOWEL PROBLEMS N STROKE/TIA N THYROID DISEASE N ULCERS N [...] GLAUCOMA N FOOT PROBLEM N DIVERTICULITIS N SLEEP APNEA N CHICKENPOX N ALLERGIES/HAYFEVER Y INFECTIOUS DISEASE N PROSTATE N HEART ARRHYTHMIA N INSOMNIA N HIGH CHOLESTEROL / HYPERLIPIDEMIA Y HYPERTHYROIDISM N EYE PROBLEMS N EATING DISORDER N NEUROLOGICAL PROBLEMS N EDEMA N CHRONIC PAIN SYNDROME N HYPOTHYROIDISM Y CONSTIPATION N CAROTID BLOCKAGE N BACK / NECK PROBLEMS N HAVE YOU BEEN HOSPITALIZED OR SEEN IN [facility] IN THE PAST YEAR ? N ATHEROSCLEROSIS [...] N PAIN N HERPES N DEMENTIA N SEIZURES/EPILEPSY N HEADACHES/MIGRAINES N VASCULAR DISEASE N PACEMAKER N DIZZINESS N KIDNEY DISEASE N HEART DISEASE/HEART PROBLEMS N SCARLET FEVER N MULTIPLE SCLEROSIS N MENTAL DISORDER/ILLNESS N DEVELOPMENTAL OR BEHAVIORAL DISORDERS N CARDIAC ARRHYTHMIA N CANCER: SPECIFY N PNEUMONIA N Gall Stones N ATRIAL FIBRILLATION N PULMONARY EMBOLISM N AUTOIMMUNE DISEASE N Immunizations Vaccine Type Date Status Note Provider Nam e and Address Organization Details Recorded Time COVID-19, mRNA, LNP-S, PF, 30 mcg/0.3 mL dose 10/21/2020 completed Not Available [facility] 3 05:06:33 COVID-19, mRNA, LNP-S, PF, 30 mcg/0.3 mL dose 09/29/2020 completed Not Available [facility] 3 05:06:33 Tdap 12/20/2019 completed Not Available [facility] 09/02/2022 05:06:33 Influenza, split virus, quadrivalent, PF 04/03/2020 completed Not Available [facility] 3 05:06:34 Past Encounters Encounter ID Performer Location Encounter Start Date Encounter Closed Date Diagnosis/Indication Diagnosis SNOMED-CT Code Diagnosis ICD10 Code Diagnosis Note [id number] Rocky Parry MD [facility] [address] [address] 10/08/2020 00:00:00 10/08/2020 08:49:22 [id number] Rocky Parry MD [facility] [place] [address] [place] [address] 10/30/2020 00:00:00 10/30/2020 10:51:50 [id number] Rocky Parry MD [facility] [place] [address] [place] [address] 12/11/2020 00:00:00 12/11/2020 10:20:08 [id number] Za Velez MD [facility] [place] [address] [place] [address] 12/16/2020 00:00:00 12/16/2020 13:28:05 [id number] Rocky Parry MD [facility] [place] [address] [place] [address] 12/17/2020 00:00:00 12/17/2020 12:30:43 [id number] Rocky Parry MD [facility] [place] [address] [place] [address] 01/08/2021 00:00:00 01/08/2021 09:44:59 [id number] Rocky Parry MD [facility] [place] [address] [facility] [place] [address] 04/25/2021 00:00:00 04/25/2021 11:22:30 [id number] Za Velez MD [facility] [place] [address] [place] [address] 05/06/2021 00:00:00 05/06/2021 18:20:09 [id number] Rocky Parry MD [facility] [place] [address] [place] [address] 07/24/2021 00:00:00 07/24/2021 16:49:18 [id number] Rocky Parry MD [facility] [place] [address] [place] [address] 07/28/2021 00:00:00 07/28/2021 15:33:30 [id number] [facility] [address] [place] [address] 08/20/2021 00:00:00 08/21/2021 13:59:54 [id number] [facility] [place] [address] [place] [address] 09/09/2021 00:00:00 09/09/2021 14:37:12 [id number] Janice Deleon MD [facility] [place] [address] [place] [address] 11/18/2021 00:00:00 12/29/2021 08:41:28 [id number] Rocky Parry MD [facility] [place] [id number] [facility] [place] [address] 11/21/2021 00:00:00 11/21/2021 14:06:12 [id number] Za Velez MD [facility] [place] [address] [place] [address] 02/09/2022 00:00:00 02/09/2022 14:01:41 [id number] Janice Deleon MD [facility] [address] [place] [address] 04/20/2022 00:00:00 04/20/2022 12:05:47 [id number] Za Velez MD [facility] [place] [address] [place] [address] 07/03/2022 00:00:00 07/03/2022 12:50:17 [id number] Monalisa Gu MD [facility] [place] [address] [facility] [address] [facility] [place] [address] 08/05/2022 00:00:00 08/05/2022 11:21:08 [id number] BRAD Ramírez [facility] Primary [facility] [place] [address] [facility] [address] [place] [address] 09/08/2022 09:55:45 09/08/2022 10:30:11 Insomnia 656985331 G47.00 ChronicNo improvemen t with otc sleep [...] least 4 hours prior to bedtime. Anxiety 54374963 F41.9 ChronicImp roving with buspirone. Highly encouraged pt to consider counseling . Denies any SI/HI at this time. Pt to stop medication and be seen if s/e develop. Essential hypertension 19419282 I10 Not well controlled at this timeElevat ion may be due, in part, to personal stressorsE ncouraged pt to increase water intake, reduce caffeine intake, exercise regularly, decrease/e liminate sodium intake, work on weight loss and stress reductionW ill continue to monitor closelyLis inopril 10mg daily [id number] BRAD Ramírez [facility] Primary Care [place] [address] [facility] [address] [facility] [place] [address] 10/14/2022 09:45:56 10/14/2022 10:47:56 Palpitations 00204006 R00.2 New problemSus pect sx are d/t uncontroll ed anxiety.EK G wnl in office today. Will check labs.Discu ssed s/s that warrant emergency evaluation . Anxiety 63764089 F41.9 Chronic,Im proved, but not to goal.Impro ving with buspirone, but will increase dose per patient request to 10mg-2 tabs TID for anxiety sx. . Highly encouraged pt to consider counseling . Denies any SI/HI at this time. Pt to stop medication and be seen if s/e develop. Insomnia 243367423 G47.0 0 Not well controlled despite good sleep hygiene.Pt states no improvemen t with melatonin, diphenhydr amine, Zquil, Unisom, or other otc sleep remedies.W ill give trial of temazepam. Reviewed controlled substance agreement requiremen ts. Discussed risk of abuse/misu se. Pt agrees to guard from theft.alejandrina zepam 7.5mg QHS [id number] Monalisa Gu MD [facility] [address] [place] [address] 11/03/2022 15:58:29 11/03/2022 17:38:31 Palpitations 32077542 R00.2 No recurrence since last visit.Susp ect sx are d/t uncontroll ed anxiety.EK G wnl in office today.Labs normal except for thyroid function. Overactive thyroid may account for some of pts sx.Discuss ed s/s that warrant emergency evaluation . Anxiety 94162655 F41.9 Chronic,Im proved, but not to goal.Samanta nue buspirone 10mg-2 tabs TID for anxiety sx. . Highly encouraged pt to consider counseling . Denies any SI/HI at this time. Pt to stop medication and be seen if s/e develop. Insomnia 472424869 G47.0 0 Not well controlled despite good sleep hygiene.Pt states no improvemen t with melatonin, diphenhydr amine, Zquil, Unisom, or other otc sleep remedies. Also failed temazepam. Continue with trazdone 100mg QHS Hyperthyroidism 73555611 E05.90 RecurrentT SH 0.198 (10/14/22)P t has appt with Dr. Velez (endocrino logy) on 01/01/23. Pt case sent to Dr. Velez asking if she would like for us to resume pts methimazol e pending his upcoming appt with her. Awaiting response. [id number] Za Velez MD [facility] [place] [address] [place] [address] 01/01/2023 09:34:28 01/01/2023 10:20:06 Essential hypertension 25170609 I10 Send for 24 hour urinary cats/mets to screen for pheochromo cytoma-pat ient has systolic pressures that are sporadic in nature and patient having more anxiety. Gary thyroiditis 21 354222 E06.3 FT4/FT3 in range. Recommende d a [...] he chooses to go [facility] to obtain labwork he was [...] in his case. He voiced understand ing. [id number] Za Velez MD [facility] [place] [address] [place] [address] 03/09/2023 11:29:07 03/09/2023 13:45:08 Gary thyroiditis 43731304 E06.3 FT4/FT3 in range. TPO levels down. [...] cats/mets all normal. 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 [id number] Christiano Beckham [id number] Christiano Stanley Bhavani Notes Date Note Type Note Provider Name [...] past 2 years Austin Marquis, BRAD [address] [facility], [facility] [address], [place], [address], [facility] [employer] 09/08/2022 20:00:16 10/14/2022 text/html 10/14/22: 1. Pt [...] foir the past 2 years Austin Marquis, DIGITAL SERVICE ENGINEER [address] [facility], [address], [place], [address], [facility] [employer] 10/14/2022 20:32:08 11/03/2022 text/html 11/03/22: 1. Pt [...] marital stress foir the past 2 years BRAD Ramírez [address], [place], [address], [facility] [employer] 11/03/2022 16:28:41 01/01/2023 text/html 47 yo male [...] of 1.3 ng/dL Za Velez MD [address], [place], [address], [facility] [employer] [facility] 01/01/2023 12:32:36 03/09/2023 text/html 47 yo male [...] normalchromogranin a normal Za Velez MD [address] [facility] [address], [place], [address], [facility] [employer] [facility] 03/09/2023 13:01:34
== END 2025-01-17 11:37 | disposition home or self-care (01) ==
PROVIDERS: PCP Nurse Practitioner Family; Visit Provider Neurological Surgery
DX: M41.84 Other forms of scoliosis, thoracic region (principal); M47.816 Spondylosis without myelopathy or radiculopathy, lumbar region; M79.604 Pain in right leg; M79.605 Pain in left leg
CPT/HCPCS: 72082; 72110

== ENCOUNTER 2025-01-18 15:40 | Outpatient (CLI) | payer BC, SELFPAY ==
--- NOTE | ~2025-01-18 | MR_ITS ---
MRI of the lumbar spine Clinical History: Pain Technique: Axial T2-weighted images, and sagittal T1-weighted, T2-weighted, and T2 fat-sat images wer e acquired. COMPARISON: 07/12/2023 Findings: There is no fracture or subluxation of the lumbar spine. Vertebral alignment is unchanged. No suspicious bone marrow signal abnormality seen. At L1-L2, there is minimal disc desiccation without significant disc bulge or herniation. No spinal c anal stenosis or neural foraminal narrowing. At L2-L3, there is no significant disc bulge or herniation. No spinal canal stenosis or neural forami nal narrowing. At L3-L4, there is minimal disc bulge with mild facet hypertrophy. No spinal canal stenosis. There is moderate left neural foraminal narrowing. Right neural foramen preserved. At L4-L5, there is degenerative disc narrowing with diffuse disc bulge and moderate facet arthropathy . No central canal stenosis. There is moderate to advanced bilateral neural foraminal narrowing. At L5-S1, there is degenerative disc narrowing with mild disc bulge and moderate facet arthropathy. N o central canal stenosis. There is mild to moderate right neural foraminal narrowing, and mild left n eural foraminal narrowing. Paravertebral soft tissues are unremarkable. Impression: [id number] degenerative changes, especially the lower lumbar spine, as above. Reviewed, dictated and finalized at location . Impression: [id number] degenerative changes, especially the lower lumbar spine, as ab ove.
== END 2025-01-18 15:41 | disposition home or self-care (01) ==
LOC: MICIMG 15:41
PROVIDERS: PCP Nurse Practitioner Family; Visit Provider Neurological Surgery
DX: M51.369 Other intervertebral disc degeneration, lumbar region without mention of lumbar back pain or lower extremity pain (principal); M47.817 Spondylosis without myelopathy or radiculopathy, lumbosacral region
CPT/HCPCS: 72148

== ENCOUNTER 2025-03-22 12:41 | Emergency (ER) | payer BC, SELFPAY ==
--- OUTSIDE RECORDS SUMMARY | 2025-03-22 12:44 | XMS_ITS | Clinical Summary ---
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
--- OUTSIDE RECORDS SUMMARY | 2025-03-22 12:44 | XMS_ITS | Clinical Summary ---
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 Gender Identity Not on file Sexual Orientation Not on file Plan of Treatment Health Maintenance Due Date Last Done Comments Hepatitis C Screening ages 1 8 to 79 once 1977 MMR VACCINES (1 of 1 - Stand funmi series) 1978 YEARLY WELLNESS EXAM 1980 DEPRESSION SCREENING 1989 ADULT TETANUS 1996 HEPATITIS B VACCINES (1 of 3 - 19+ 3-dose series) 1996 LIPID TESTING 2012 Colon Cancer Screening 2022 Influenza Vaccine 02/02/2025 COVID-19 Immunization (1 - 2 024-25 season) 2025 Zoster Vaccine (Recombinant Vaccine) (1 of 2) 2027 HEPATITIS A VACCINES Aged Out No long er eligible based on patient's age to complete this topic HIB VACCINES Aged Out No longer eligi ble based on patient's age to complete this topic HPV VACCINES Aged Out No longer eligi ble based on patient's age to complete this topic IPV VACCINES Aged Out No longer eligi ble based on patient's age to complete this topic MENINGOCOCCAL VACCINE Aged Out No taylor brenda eligible based on patient's age to complete this topic Meningococcal B Vaccine Aged Out No l onger eligible based on patient's age to complete this topic Pneumococcal Vaccine: Peds t o 50 & At-Risk Patients Aged Out No longer eligible b ased on patient's age to complete this topic ROTAVIRUS VACCINES Aged Out No longer eligible based on patient's age to complete this topic Care Teams Blender Machine Operator Relationship Specialty Start Date End Date Izzy Fagan MD [address] [address] PCP - General 09/01/06
[2025-03-22 12:46] VITALS: BP 134/68; PULSE 91; RESP 18; TEMP 36.6; O2SAT 100
--- NOTE | 2025-03-22 12:51 | ED_ITS ---
HPI - General Adult General Chief complaint: Abdominal Pain Stated complaint: Urogenital-Male Time Seen by Provider: 03/22/25 12:51 Source: patient Mode of arrival: ambulatory Limitations: no limitations History of Present Illness HPI narrative: 49 yo M presents with concern for hemorrhoid. Denies constipation. Last BM yesterday morning. Denies straining. No blood in stool. Has had some hemorrhoids that he treated at home himself. Has never seen specialist. States this hemorrhoids feels large. All systems reviewed and negative except as noted above. Related Data Home Medications ?Medication ?Instructions ?Recorded ?Confirmed ?Last Taken ?Type tadalafil 20 mg tablet 20 mg PO DAILY PRN Erectile 06/24/23 11/22/24 Unknown History Dysfunction Allergies Allergy/AdvReac Type Severity Reaction Status Date / Time naproxen (From Naprosyn) AdvReac Intermediate Abdominal Verified 03/22/25 12:47 Pain PMFSH Past Medical History Medical History BMI 31.0-31.9,adult Nightmares Depression Liver cyst Hemangioma of liver Abnormal ultrasound of liver Testicular pain BMI 27.0-27.9,adult Osteoarthritis of facet joint of lumbar spine severe bilaterally at L4-L5 and L5-S1 Hyperlipidemia Palpitation Transient right leg weakness Bulging of lumbar intervertebral disc Low back pain radiating to both legs Gary's disease Insomnia Encounter to establish care History of herniated intervertebral disc Anxiety Chronic cholecystitis without calculus Encounter for surgical aftercare following surgery on the digestive system Gallbladder polyp RUQ abdominal pain High cholesterol Hypertension History of thyroid disorder Surgical History Surgical History Hx laparoscopic cholecystectomy 07/29/20 History of appendectomy History of elbow surgery ulnar nerve right elbow History of eye surgery History of tonsillectomy History of vasectomy Family History Family History Father Family history of malignant neoplasm Family history of suicide Depression Grandparent Family history of malignant neoplasm Hypertension Other Family history of mental disorder Family history of rheumatoid arthritis Social History Social History Smoking status: Never smoker Second hand tobacco smoke exposure: No Alcohol intake: never Substance use: never Substance use type: does not use Do You Feel Safe in your Home?: Yes Lack of Transportation: No Lack of Food: Never True Current Housing: I Have Housing Concerned About Future Housing: No Difficulty Paying Gas/Electric Bills: No Difficulty Paying for Meds: No Currently Unemployed: No Education: Bachelor's Degree Difficulty w/ Childcare or Family Care: No Living arrangements: with family Occupation/Education: occupation 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 There is no relevant family history pertinent to the presenting complaint. Exam Narrative: GENERAL: This is a well-nourished, well-developed patient, in no apparent distress. HEAD: normocephalic, atraumatic. EYES: PERRL. Sclera clear/white. Vision is grossly intact. EARS: External ears normal NOSE: External nose normal NECK: Neck supple, non-tender without lymphadenopathy, masses or thyromegaly. CARDIOVASCULAR: Regular rate and rhythm without murmurs, gallops, or rubs. RESPIRATORY: Clear to auscultation. Breath sounds equal bilaterally. No wheezes, rales, or rhonchi. SKIN: warm, Dry, intact with no suspicious lesions or rash, good texture and turgor. NEURO: awake, alert, and oriented to person, place and time. There were no obvious focal neurologic abnormalities. EXTREMITIES: No joint tenderness, effusion, or edema noted. GI: Rectal Exam: External hemorrhoid(s) present (1 external hemorrhoid approx. 2 to 3 cm diameter. tender. no bleeding. ) Course Course Level of Care: Express Care Visit Vital Signs Vital signs: Vital Signs Temperature 36.6 C 03/22/25 12:46 Pulse Rate 91 03/22/25 12:46 Respiratory Rate 03/22/25 12:46 Blood Pressure 134/68 03/22/25 12:46 Pulse Oximetry 100 03/22/25 12:46 Oxygen Delivery Room Air 03/22/25 12:46 Temperature 36.6 C 03/22/25 12:46 Pulse Rate 91 03/22/25 12:46 Respiratory Rate 18 03/22/25 12:46 Blood Pressure 134/68 03/22/25 12:46 Pulse Oximetry 100 03/22/25 12:46 Oxygen Delivery Room Air 03/22/25 12:46 reviewed Medical Decision Making MDM Narrative Medical decision making narrative: one external hemorrhoid noted. Will prescribed. proctofoam and anusolHC suppository. referred to general surgery. Pt is welling appearing. no pain distress. Vital Signs Vital Signs: Vital Signs Temperature 36.6 C 03/22/25 12:46 Pulse Rate 91 03/22/25 12:46 Respiratory Rate 18 03/22/25 12:46 Blood Pressure 134/68 03/22/25 12:46 Pulse Oximetry 100 03/22/25 12:46 Oxygen Delivery Room Air 03/22/25 12:46 Temperature 36.6 C 03/22/25 12:46 Pulse Rate 91 03/22/25 12:46 Respiratory Rate 18 03/22/25 12:46 Blood Pressure 134/68 03/22/25 12:46 Pulse Oximetry 100 03/22/25 12:46 Oxygen Delivery Room Air 03/22/25 12:46 Discharge Plan Discharge Clinical Impression: External hemorrhoid Patient Disposition: Home Condition: Stable Instructions: Hemorrhoids (ED) Additional Instructions: Use medications as prescribed. Take a daily stool softener, such a colace. Drink at least 64 ounces of water a day. Do not sit on the toilet for long periods of time. Schedule follow up appointment with general surgery. Go to the ER for any worsening of symptoms. Patient Language: Algerian Prescriptions: New pramoxine [Proctofoam] 1 % foam 1 applic RECTAL TID Qty: 15 0RF Rx Instructions: for external use only hydrocortisone 2.5 % cream 1 applic topical BID PRN (Reason: hemorrhoids) 10 Days Qty: 20 0RF No Action fluticasone propionate 50 mcg/actuation spray,suspension 2 spray intranasal DAILY Qty: 16 0RF Rx Instructions: administer into each nostril tadalafil 20 mg tablet 20 mg PO DAILY PRN (Reason: Erectile Dysfunction) Rx Instructions: administer approximately 30min before sexual activity; do not use more than 1 dose per 24hrs propranolol 10 mg tablet 20 mg PO Q12H Qty: 180 0RF Rx Instructions: hold of SBP is less than 100 or less than 50 trazodone 100 mg tablet 50 - 100 mg PO QHS PRN (Reason: insomnia) Qty: 90 3RF lisinopril 10 mg tablet 10 mg PO HS Qty: 30 11RF buspirone 10 mg tablet 20 mg PO TID Qty: 180 11RF Follow-up/Referrals: Concha Casiano MD [Physician, General Surgery] Referral Note: follow up for further evaluation of hemorrhoid Chelsea Moseley NP [Primary Care Provider, Family Practice] Time of Disposition: 13:01
== END 2025-03-22 13:04 | disposition home or self-care (01) ==
PROVIDERS: Emergency Provider Nurse Practitioner Family; PCP Nurse Practitioner Family
DX: K64.4 Residual hemorrhoidal skin tags (principal); E06.3 Autoimmune thyroiditis; I10 Essential (primary) hypertension; E78.00 Pure hypercholesterolemia, unspecified; F41.9 Anxiety disorder, unspecified; F32.A Depression, unspecified
CPT/HCPCS: 99213; G0463

== ENCOUNTER 2025-04-11 12:33 | Outpatient (CLI) | payer BC, SELFPAY ==
--- NOTE | ~2025-04-11 | US_ITS ---
EXAMINATION: US scrotum doppler DATE: 04/11/2025 13:05 INDICATION: Left testicular pain. TECHNIQUE: Grayscale and Doppler ultrasound images of the testes were obtained. COMPARISON: None. FINDINGS: The right testis measures 5.2 x 2.3 x 3.5 cm. The left testis measures 3.8 x 2.6 x 2.8 cm. There is normal vascular flow to both testes. The right epididymis is normal with normal vascular flow. The left epididymis is normal with normal vascular flow. There is no hydrocele. There is a left-sided varicocele. IMPRESSION: 1. Left-sided varicocele. Reviewed, dictated and finalized at location E. IMPRESSION: 1. Left-sided varicocele.
== END 2025-04-11 12:34 | disposition home or self-care (01) ==
LOC: MICIMG 12:34
PROVIDERS: PCP Nurse Practitioner Family; Visit Provider Nurse Practitioner Family
DX: I86.1 Scrotal varices (principal)
CPT/HCPCS: 76870; 93976

== ENCOUNTER 2025-06-13 05:50 | Emergency (ER) | payer BC, SELFPAY ==
--- NOTE | ~2025-06-13 | US_ITS ---
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 Findings: Right Testicle:Right testicle 5.1 x 2 x 3.5 cm, normal parenchyma, normal flow. Right Epidiymis:Right epididymis subcentimeter cyst, no increased flow. Left Testicle: Left testicle 4 x 1.8 x 3.2 cm, normal parenchyma, normal flow. Left Epidiymis: Unremarkable. Normal flow. Hydrocele: None . Varicocele: Small left varicocele. Scrotum: Unremarkable. No skin thickening. Impression: Negative for torsion. No acute process. Reviewed, dictated and finalized at location P. ER TRUCK DRIVER Impression: Negative for torsion. No acute process.
[2025-06-13 05:58] VITALS: BP 135/81; PULSE 81; RESP 12; TEMP 36.7; O2SAT 100
--- NOTE | 2025-06-13 06:03 | ED_ITS ---
HPI - General Adult General Chief complaint: Urogenital-Male <Osvaldo Murcia MD - Last Filed: 06/13/25 06:05> Stated complaint: testicular pain <Osvaldo Murcia MD - Last Filed: 06/13/25 06:05> Time Seen by Provider: 06/13/25 05:55 <Osvaldo Murcia MD - Last Filed: 06/13/25 06:05> History of Present Illness HPI narrative: 49-year-old male with prior history of vasectomy and left-sided varicocele present to the emergency department for evaluation for right-sided testicular pain it started bothering him on Wednesday morning. Patient denies any specific incident injury. Patient has not noticed any swelling or rash associated with the testicle. Patient denies any urinary symptoms. Patient denies any concern for STIs. Patient does have follow-up scheduled for his varicocele, he did attempt to call his urologist regarding the new right-sided testicular pain but did not hear anything. Patient felt that the pain was still persistent so he presented to the emergency department for evaluation. <Osvaldo Murcia MD - Last Filed: 06/13/25 06:05> Related Data Allergies/adverse reactions: Allergies Allergy/AdvReac Type Severity Reaction Status Date / Time naproxen (From Naprosyn) AdvReac Intermediate Abdominal Verified 06/13/25 08:23 Pain <Osvaldo Murcia MD - Last Filed: 06/13/25 06:05> Review of Systems Review of Systems: All systems reviewed & are unremarkable except as noted in HPI and below <Osvaldo Murcia MD - Last Filed: 06/13/25 06:05> [facility] Past Medical History Medical History: Medical History (Updated 06/13/25 @ 09:05 by Mario Hampton MD) Left varicocele Memory changes Erectile dysfunction Testicular pain, left BMI 31.0-31.9,adult Nightmares Depression Liver cyst Hemangioma of liver Abnormal ultrasound of liver Testicular pain BMI 27.0-27.9,adult Osteoarthritis of facet joint of lumbar spine severe bilaterally at L4-L5 and L5-S1 Hyperlipidemia Palpitation Transient right leg weakness Bulging of lumbar intervertebral disc Low back pain radiating to both legs Gary's disease Insomnia Encounter to establish care History of herniated intervertebral disc Anxiety Chronic cholecystitis without calculus Encounter for surgical aftercare following surgery on the digestive system Gallbladder polyp RUQ abdominal pain High cholesterol Hypertension History of thyroid disorder <Osvaldo Murcia MD - Last Filed: 06/13/25 06:05> Surgical History Surgical History: Surgical History History of epidural steroid injection into lumbar spine Hx laparoscopic cholecystectomy 07/29/20 History of appendectomy History of elbow surgery ulnar nerve right elbow History of eye surgery History of tonsillectomy History of vasectomy <Osvaldo Murcia MD - Last Filed: 06/13/25 06:05> Family History Family History: Family History Father Family history of malignant neoplasm Family history of suicide Depression Grandparent Family history of malignant neoplasm Hypertension Other Family history of mental disorder Family history of rheumatoid arthritis <Osvaldo Murcia MD - Last Filed: 06/13/25 06:05> Social History Social History: Social History Smoking status: Never smoker Second hand tobacco smoke exposure: No Alcohol intake: never Substance use: never Substance use type: does not use Lack of Transportation: No Lack of Food: Never True Current Housing: I Have Housing Concerned About Future Housing: No Difficulty Paying Gas/Electric Bills: No Difficulty Paying for Meds: No Currently Unemployed: No Education: Bachelor's Degree Difficulty w/ Childcare or Family Care: No Living arrangements: with family Occupation/Education: occupation 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 HEAD: normocephalic, atraumatic. EYES: PERRLA/EOMI, conjunctivae clear. NOSE: Normal no drainage NECK: Supple. No adenopathy, no masses. RESPIRATORY: Airway patent, respirations nonlabored. Clear to auscultation bilaterally, no rales, rhonchi, wheezing. CARDIOVASCULAR: Regular rate and rhythm without murmurs rubs or gallops. ABDOMINAL: Soft, nontender, nondistended, normal bowel sounds MUSCULOSKELETAL: Moves all extremities. Strength/ROM intact, No edema, No calf tenderness. NEURO: Alert. Cranial nerves II through XII intact. Good gait. Good coordination SKIN: Warm, dry. Normal Color Genital exam: Tenderness to posterior right testicle, no high riding, no significant edema <Osvaldo Murcia MD - Last Filed: 06/13/25 06:05> Course Course Emergency Course: Resting comfortably. Informed of results. Appropriate for discharge home. <Mario Hampton MD - Last Filed: 06/13/25 09:09> Vital Signs Vital signs: Vital Signs Temperature 98.1 F 06/13/25 05:58 Pulse Rate 81 06/13/25 05:58 Respiratory Rate 12 06/13/25 05:58 Blood Pressure 135/81 06/13/25 05:58 Pulse Oximetry 100 06/13/25 05:58 Oxygen Delivery Room Air 06/13/25 05:58 Temperature 98.1 F 06/13/25 05:58 Pulse Rate 85 06/13/25 07:45 Respiratory Rate 14 06/13/25 07:45 Blood Pressure 122/75 06/13/25 07:45 Pulse Oximetry 97 06/13/25 07:45 Oxygen Delivery Room Air 06/13/25 05:58 <Osvaldo Murcia MD - Last Filed: 06/13/25 06:05> Vital Signs Temperature 98.1 F 06/13/25 05:58 Pulse Rate 81 06/13/25 05:58 Respiratory Rate 12 06/13/25 05:58 Blood Pressure 135/81 06/13/25 05:58 Pulse Oximetry 100 06/13/25 05:58 Oxygen Delivery Room Air 06/13/25 05:58 Temperature 98.1 F 06/13/25 05:58 Pulse Rate 85 06/13/25 07:45 Respiratory Rate 14 06/13/25 07:45 Blood Pressure 122/75 06/13/25 07:45 Pulse Oximetry 97 06/13/25 07:45 Oxygen Delivery Room Air 06/13/25 05:58 <Mario Hampton MD - Last Filed: 06/13/25 09:09> MDM Differential Diagnosis Differential Diagnosis: Testicular torsion, epididymitis, testicle pain, UTI, kidney stone, scrotal abscess <Mario Hampton MD - Last Filed: 06/13/25 09:09> Lab Data Labs: Lab Results 06/13/25 Range/Units 06:07 Urine Color Yellow (Yellow) Urine Appearance Clear (Clear) Urine pH 5.5 (5.0-9.0) Ur Specific [place] 1.014 (1.001-1.035) Urine Protein Negative (Negative) mg/dL Urine Glucose (UA) Negative (Negative) mg/dL Urine Ketones Negative (Negative) mg/dL Ur Blood (Man) Negative (Negative) Urine Nitrate Negative (Negative) Urine Bilirubin Negative (Negative) Urine Urobilinogen 0.2 (<2.0) mg/dL Leukocyte Esterase Rfl Negative (Negative) VANIA/UL C. trachomatis (PCR) Not detected (NOT DETECTE) N. gonorrhoeae (PCR) Not detected (NOT DETECTE) <Osvaldo Murcia MD - Last Filed: 06/13/25 06:05> Lab Results 06/13/25 Range/Units 06:07 Urine Color Yellow (Yellow) Urine Appearance Clear (Clear) Urine pH 5.5 (5.0-9.0) Ur Specific [place] 1.014 (1.001-1.035) Urine Protein Negative (Negative) mg/dL Urine Glucose (UA) Negative (Negative) mg/dL Urine Ketones Negative (Negative) mg/dL Ur Blood (Man) Negative (Negative) Urine Nitrate Negative (Negative) Urine Bilirubin Negative (Negative) Urine Urobilinogen 0.2 (<2.0) mg/dL Leukocyte Esterase Rfl Negative (Negative) VANIA/UL C. trachomatis (PCR) Not detected (NOT DETECTE) N. gonorrhoeae (PCR) Not detected (NOT DETECTE) <Mario Hampton MD - Last Filed: 06/13/25 09:09> Imaging Data Radiologist's impression: ITS Impressions Scrotum Ultrasound 06/13/25 08:11 Impression: Negative for torsion. No acute process. <Osvaldo Murcia MD - Last Filed: 06/13/25 06:05> ITS Impressions Scrotum Ultrasound 06/13/25 08:11 Impression: Negative for torsion. No acute process. <Mario Hampton MD - Last Filed: 06/13/25 09:09> Discharge Plan Discharge Clinical Impression: Testicle pain <Osvaldo Murcia MD - Last Filed: 06/13/25 06:05> Patient Disposition: Home <Osvaldo Murcia MD - Last Filed: 06/13/25 06:05> Condition: Stable <Osvaldo Murcia MD - Last Filed: 06/13/25 06:05> Instructions: Testicle Pain (ED) <Osvaldo Murcia MD - Last Filed: 06/13/25 06:05> Additional Instructions: Take naproxen for pain. Return ER if you have fever 100.4? F, he can not keep down water, he lose consciousness, have additional concerns. <Osvaldo Murcia MD - Last Filed: 06/13/25 06:05> Patient Language: Peruvian <Osvaldo Murcia MD - Last Filed: 06/13/25 06:05> Prescriptions: New naproxen 375 mg tablet 375 mg PO BID Qty: 14 0RF pantoprazole 20 mg tablet,delayed release (DR/EC) 20 mg PO HS Qty: 14 0RF No Action fluticasone propionate 50 mcg/actuation spray,suspension 2 spray intranasal DAILY Qty: 16 0RF Rx Instructions: administer into each nostril hydrocortisone 2.5 % cream 1 applic topical BID PRN (Reason: hemorrhoids) 10 Days Qty: 20 0RF tadalafil 20 mg tablet 20 mg PO DAILY PRN (Reason: Erectile Dysfunction) Qty: 30 2RF Rx Instructions: GoodRx trazodone 100 mg tablet 50 - 100 mg PO QHS PRN (Reason: insomnia) Qty: 90 3RF lisinopril 10 mg tablet 10 mg PO HS Qty: 30 11RF buspirone 10 mg tablet 20 mg PO TID Qty: 180 11RF eszopiclone [Lunesta] 3 mg tablet 3 mg PO QHS PRN (Reason: insomnia) Qty: 30 5RF Rx Instructions: GoodRX coupon methimazole 5 mg tablet 2.5 mg PO DAILY Qty: 90 0RF propranolol 10 mg tablet 30 mg PO Q12H Qty: 540 2RF Rx Instructions: hold of SBP is less than 100 or less than 50 atorvastatin [Lipitor] 10 mg tablet 10 mg PO DAILY Qty: 30 11RF <Osvaldo Murcia MD - Last Filed: 06/13/25 06:05> Follow-up/Referrals: Bryce Hernandez MD [Physician, Urology] - 1 Week Chelsea Moseley APRN [Primary Care Provider, Family Practice] <Osvaldo Murcia MD - Last Filed: 06/13/25 06:05>
--- OUTSIDE RECORDS SUMMARY | 2025-06-13 06:06 | XMS_ITS | Clinical Summary ---
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
--- OUTSIDE RECORDS SUMMARY | 2025-06-13 06:06 | XMS_ITS | Data Portability ---
Author Organization [facility], Main Office Address [address] [place] [address] Care Team Providers Care Actuarial Technician Name Role Phone AUSTIN MARQUIS Primary Care [...] 17:04:27 chromograni n A, serum 2022 023 [email or web address] Not available 3 10:12:13 metanephrin es, fractionate d, free, plasma 2022 023 [email or web address] Not available 3 14:15:34 CMP, serum or plasma [address] (Lab), [address] [place], [address], 3 11:47:07 TSH, serum or plasma [address] (Lab), [address] [place], [address], 3 11:47:50 CBC [address] (Lab), [address] [place], [address], 3 11:48:37 Referral None recorded. Procedures None recorded. Surgeries None recorded. Imaging electrocard iogram 2022 023 [email or web address] [facility] [address], [place], [address], 3 10:47:47 Medication Orders propranolol 10 mg tablet 2022 023 [facility] #30574, [address], [place], [id number], 3 10:13:32 trazodone 100 mg tablet 2022 023 [facility] #63702, [address], [place], [id number], 3 16:20:52 temazepam 7.5 mg capsule 2022 023 [email or web address] [facility] #09521, [address], [place], [id number], 3 09:42:07 buspirone 10 mg tablet 2022 023 [email or web address] 5 [facility] #52687, [address], [place], [place], [id number], 3 20:23:44 trazodone 50 mg tablet 2022 023 [email or web address] 5 [facility] #92156, [address], [place], [place], [id number], 3 09:15:35 Patient TargetsNo targets recorded. Patient Instructions Encounter Date Encounter Id Patient Instructions Last Modified By Organization Details Last Modified Time 10/14/2022 [id number] Discussed requirements of the controlled substance agreement [...] being prescribed or dismissal from the practice. [email or web address] Not available 10/14/2022 20:31:43 Reason for Referral None Reported. Results Created Date Observation Date Name Description Value Unit Range Abnormal Flag Note LastModifiedBy Organization Detail LastModifiedTime 10/15/1910/14/2022 CBC W/O DIFFE RENTI AL white blood cells 4.7 x10'3 /uL 4.2-10 .8 Not Available [facility] (Lab) [address] [place], [address], 10/14/2022 18:53:35 10/15/19 23 10/14/2022 CBC W/O DIFFE RENTI AL red blood cells 5.20 x10'6 /uL 4.10-5 .80 Not Available [facility] (Lab) [address] [place], [address], 10/14/2022 18:53:35 10/15/19 23 10/14/2022 CBC W/O DIFFE RENTI AL hemoglobin 15.9 g/dL 13.2-1 7.0 Not Available [facility] (Lab) [address] [facility] [place], [address], 10/14/2022 18:53:35 10/15/19 23 10/14/2022 CBC W/O DIFFE RENTI AL hematocrit 47.4 % 39.3-5 0.0 Not Available [facility] (Lab) [address] [place], [address], 10/14/2022 18:53:35 10/15/19 23 10/14/2022 CBC W/O DIFFE RENTI AL mean red cell volume 91.2 fL 80.0-9 7.0 Not Available [facility] (Lab) [address] [place], [address], 10/14/2022 18:53:35 10/15/19 23 10/14/2022 CBC W/O DIFFE RENTI AL mean red cell hemoglobin 30.6 pg 27.0-3 3.0 Not Available [facility] (Lab) [address] [place], [address], 10/14/2022 18:53:35 10/15/19 23 10/14/2022 CBC W/O DIFFE RENTI AL mean RBC HGB concentratio n 33.5 g/dL 31.0-3 6.0 Not Available [facility] (Lab) [address] [place], [address], 10/14/2022 18:53:35 10/15/19 23 10/14/2022 CBC W/O DIFFE RENTI AL red cell distribution width 12.0 % 11.8-1 5.5 Not Available [facility] (Lab) [address] [place], [address], 10/14/2022 18:53:35 10/15/19 23 10/14/2022 CBC W/O DIFFE RENTI AL platelets 272 x10'3 /uL 150-40 0 Not Available [facility] (Lab) [address] [place], [address], 10/14/2022 18:53:35 10/15/19 23 10/14/2022 CBC W/O DIFFE MICHAEL AL mean platelet volume 9.7 fL 9.0-12 .4 Not Available [facility] (Lab) [address] [place], [address], 10/14/2022 18:53:35 10/15/19 23 10/14/2022 COMPR EHENS FRANCO METAB OLIC PANEL sodium 140 mmol/ L 137-14 5 Not Available [facility] (Lab) [address] [place], [address], 10/14/2022 19:21:11 10/15/19 23 10/14/2022 COMPR EHENS FRANCO METAB OLIC PANEL potassium 3.7 mmol/ L 3.5-5. 1 Not Available [facility] (Lab) [address] [place], [address], 10/14/2022 19:21:11 10/15/19 23 10/14/2022 COMPR EHENS FRANCO METAB OLIC PANEL chloride 103 mmol/ L 98-107 Not Available [facility] (Lab) [address] [place], [address], 10/14/2022 19:21:11 10/15/19 23 10/14/2022 COMPR EHENS FRANCO METAB OLIC PANEL carbon dioxide 21 mmol/ L 22-30 low Not Available [facility] (Lab) [address] [place], [address], 10/14/2022 19:21:11 10/15/19 23 10/14/2022 COMPR EHENS FRANCO METAB OLIC PANEL anion gap 19.7 mmol/ L 14-22 Not Available [facility] (Lab) [address] [place], [address], 10/14/2022 19:21:11 10/15/19 23 10/14/2022 COMPR EHENS FRANCO METAB OLIC PANEL glucose 85 mg/dL 70-99 Not Available [facility] (Lab) [address] [place], [address], 10/14/2022 19:21:11 10/15/19 23 10/14/2022 COMPR EHENS FRANCO METAB OLIC PANEL BUN 12 mg/dL 8-19 Not Available [facility] (Lab) [address] [place], [address], 10/14/2022 19:21:11 10/15/19 23 10/14/2022 COMPR EHENS FRANCO METAB OLIC PANEL creatinine 1.11 mg/dL 0.66-1 .25 Not Available [facility] (Lab) [address] [place], [address], 10/14/2022 19:21:11 10/15/19 23 10/14/2022 COMPR EHENS FRANCO METAB OLIC PANEL GFR >60 Refer ence Range : [place] ge GFR Healt hy Adult : >60 [...] calcu latshey is avail able on the [facility] websi te: https :[email or web address] acevedo.korey laird/pr ofess ional s/kdo qi/gf r_cal culat or Not Available [facility] (Lab) [address] [place], [address], 10/14/2022 19:21:11 10/15/1910/14/2022 COMPR EHENS FRANCO METAB OLIC PANEL alkaline phosphatase 57 U/L 38-126 Not Available [facility] (Lab) [address] [place], [address], 10/14/2022 19:21:11 10/15/19 23 10/14/2022 COMPR EHENS FRANCO METAB OLIC PANEL alanine aminotransfe rase 47 U/L 0-50 Not Available [facility] (Lab) [address] [place], [address], 10/14/2022 19:21:11 10/15/19 23 10/14/2022 COMPR EHENS FRANCO METAB OLIC PANEL aspartate aminotransfe rase 31 U/L 15-46 Not Available [facility] (Lab) [address] [place], [address], 10/14/2022 19:21:11 10/15/19 23 10/14/2022 COMPR EHENS FRANCO METAB OLIC PANEL bilirubin, total 1.40 mg/dL 0.20-1 .30 high Not Available [facility] (Lab) [address] [place], [address], 10/14/2022 19:21:11 10/15/19 23 10/14/2022 COMPR EHENS FRANCO METAB OLIC PANEL calcium 9.8 mg/dL 8.4-10 .2 Not Available [facility] (Lab) [address] [place], [address], 10/14/2022 19:21:11 10/15/19 23 10/14/2022 COMPR EHENS FRANCO METAB OLIC PANEL total protein 7.9 g/dL 6.3-8. 2 Not Available [facility] (Lab) [address] [place], [address], 10/14/2022 19:21:11 10/15/19 23 10/14/2022 COMPR EHENS FRANCO METAB OLIC PANEL albumin 5.2 g/dL 3.4-5. 0 high Not Available [facility] (Lab) [address] [place], [address], 10/14/2022 19:21:11 10/15/19 23 10/14/2022 COMPR EHENS FRANCO METAB OLIC PANEL globulin 2.7 g/dL 2.6-4. 2 Not Available [facility] (Lab) [address] [place], [address], 10/14/2022 19:21:11 10/15/19 23 10/14/2022 COMPR EHENS FRANCO METAB OLIC PANEL A/G ratio 1.9 ratio 1.0-2. 0 Not Available [facility] (Lab) [address] [place], [address], 10/14/2022 19:21:11 10/15/19 23 10/14/2022 TSH thyroid-stim ulating hormone 0.198 uIU/m L 0.465- 4.680 low Not Available [facility] (Lab) [address] [place], [address], 10/14/2022 20:05:06 12/29/19 23 12/30/2022 COMPR EHENS FRANCO METAB OLIC PANEL glucose 101 mg/dL 65-99 high Fasti ng refer ence inter vicenta For someo ne witho ut known diabe antonio, a gluco se value betwe en 100 and 125 mg/dL is consi stent with predi abete s and shoul d be confi rmed with a follo w-up test. Not Available [facility] [address] [address] [place], [address], 12/30/2022 12:05:36 12/29/19 23 12/30/2022 COMPR EHENS FRANCO METAB OLIC PANEL urea nitrogen (BUN) 15 mg/dL 7-25 normal Not Available [facility] [address] [address] [place], [address], 12/30/2022 12:05:36 12/29/19 23 12/30/2022 COMPR EHENS FRANCO METAB OLIC PANEL creatinine 1.20 mg/dL 0.60-1 .29 normal Not Available [facility] [place] [address] [address] [place], [address], 12/30/2022 12:05:36 12/29/19 23 12/30/2022 COMPR EHENS [...] kdoqi /gfr% 5Fcal culat or Not Available [address] [address] [place], [address], 12/30/2022 12:05:36 12/29/19 23 12/30/2022 COMPR EHENS FRANCO METAB OLIC PANEL BUN/creatini ne ratio NOT APPLIC ABLE (calc ) 6-22 Not Available [facility] [address] [address] [place], [address], 12/30/2022 12:05:36 12/29/19 23 12/30/2022 COMPR EHENS FRANCO METAB OLIC PANEL sodium 139 mmol/ L 135-14 6 normal Not Available [facility] [address] [address] [place], [address], 12/30/2022 12:05:36 12/29/19 23 12/30/2022 COMPR EHENS FRANCO METAB OLIC PANEL potassium 4.0 mmol/ L 3.5-5. 3 normal Not Available [address], [address], 12/30/2022 12:05:36 12/29/19 23 12/30/2022 COMPR EHENS FRANCO METAB OLIC PANEL chloride 105 mmol/ L 98-110 normal Not Available [address], [address], 12/30/2022 12:05:36 12/29/19 23 12/30/2022 COMPR EHENS FRANCO METAB OLIC PANEL carbon dioxide 27 mmol/ L 20-32 normal Not Available [address], [address], 12/30/2022 12:05:36 12/29/19 23 12/30/2022 COMPR EHENS FRANCO METAB OLIC PANEL calcium 9.5 mg/dL 8.6-10 .3 normal Not Available [address], [address], 12/30/2022 12:05:36 12/29/19 23 12/30/2022 COMPR EHENS FRANCO METAB OLIC PANEL protein, total 6.7 g/dL 6.1-8. 1 normal Not Available [address], [address], 12/30/2022 12:05:36 12/29/19 23 12/30/2022 COMPR EHENS FRANCO METAB OLIC PANEL albumin 4.7 g/dL 3.6-5. 1 normal Not Available [address], [address], 12/30/2022 12:05:36 12/29/19 23 12/30/2022 COMPR EHENS FRANCO METAB OLIC PANEL globulin 2.0 g/dL_ (calc ) 1.9-3. 7 normal Not Available [address], [address], 12/30/2022 12:05:36 12/29/19 23 12/30/2022 COMPR EHENS FRANCO METAB OLIC PANEL albumin/glob ulin ratio 2.4 (calc ) 1.0-2. 5 normal Not Available [address], [address], 12/30/2022 12:05:36 12/29/19 23 12/30/2022 COMPR EHENS FRANCO METAB OLIC PANEL bilirubin, total 0.6 mg/dL 0.2-1. 2 normal Not Available [address], [address], 12/30/2022 12:05:36 12/29/19 23 12/30/2022 COMPR EHENS FRANCO METAB OLIC PANEL alkaline phosphatase 46 U/L 36-130 normal Not Available [facility] [address] [address] [place], [address], 12/30/2022 12:05:36 12/29/19 23 12/30/2022 COMPR EHENS FRANCO METAB OLIC PANEL AST 10 U/L 10-40 normal Not Available [address], [address], 12/30/2022 12:05:36 12/29/19 23 12/30/2022 COMPR EHENS FRANCO METAB OLIC PANEL ALT 11 U/L 9-46 normal Not Available [address], [address], 12/30/2022 12:05:36 12/29/19 23 12/30/2022 THYRO ID PEROX IDASE ANTIB ODIES thyroid peroxidase antibodies 13 IU/mL <9 high Not Available [address], [address], 12/30/2022 12:05:36 12/29/19 23 12/30/2022 T3, FREE T3, free 3.9 pg/mL 2.3-4. 2 normal Not Available [address], [address], 12/30/2022 12:05:37 12/29/19 23 12/30/2022 TSH+F REE T4 TSH 0.08 mIU/L 0.40-4 .50 low Not Available [address], [address], 12/30/2022 12:05:37 12/29/19 23 12/30/2022 TSH+F REE T4 T4, free 1.3 NG/dL 0.8-1. 8 normal Not Available [address], [address], 12/30/2022 12:05:37 01/07/20 23 01/12/2023 METAN EPHRI BARBARA, FRACT , FREE, LC/MS /MS, PLASM A metanephrine , free 49 pg/mL <=57 This test was devel oped and its roni tical perfo rmanc e alo cteri stics have been deter mined by [employer] radha collier [place], [place]. It has not been clear ed or appro vargas by the U.S. Food and Drug Admin istra tion. This assay has been valid ated pursu ant to the CLIA regul ation s and is used for clini jason purpo ses. Not Available [facility] [address] [address] [place], [address], 01/12/2023 14:15:34 01/07/20 23 01/12/2023 METAN EPHRI BARBARA, FRACT , FREE, LC/MS /MS, PLASM A normetanephr ine, free 67 pg/mL <=148 This test was devel oped and its roni tical perfo rmanc e alo cteri stics have been deter mined by [employer] [facility] [place]. It has not been clear ed or appro vargas by the U.S. Food and Drug Admin istra tion. This assay has been valid ated pursu ant to the CLIA regul ation s and is used for clini jason purpo ses. Not Available [facility] [address] [address], [place], [address], 01/12/2023 14:15:34 01/07/20 23 01/12/2023 METAN EPHRI BARBARA, FRACT , FREE, LC/MS /MS, PLASM A total, free (MN+nmn) 116 pg/mL <=205 For addit ional infor luciano gallagher e refer to http: //[facility] patricia blackwell.que stdia gnost ics.c om/fa q/Met Fract Free (This link is being provi ded for infor matio nal/e ducat io infor matio nal/e ducat ional purpo ses only. ) [place] tions >4-fo ld upper refer ence range : stron gly sugge stive of a pheoc hromo cytom a(1). [place] tions >1- 4-fol d upper refer ence [...] mined by [facility] [place]. It has not been clear ed or appro vargas by the U.S. Food and Drug Admin istra tion. This assay has been valid ated pursu ant to the CLIA regul ation s and is used for clini jason purpo ses. Not Available [facility] [address] [address] , [place], [address], 01/12/2023 14:15:34 01/07/20 23 01/12/2023 CHROM OGRAN [...] for clini jason purpo ses. Not Available [facility] [address] [place] [address] [place], [address], 01/12/2023 14:15:35 01/13/20 23 01/25/2023 CATEC HOLAM NAYELI, FRACT , 24 HOUR URINE W/O CREAT 24 HR urine volume 2800 mL/24 _h Not Available [facility] [place] [address] [place], [address], 01/25/2023 05:54:01 01/13/20 23 01/25/2023 CATEC HOLAM NAYELI, FRACT , 24 HOUR URINE W/O CREAT epinephrine, 24 HR urine see note Resul ts are below the repor table range for this roni te, which is 2.0 mcg/L . This test was devel oped and its roni tical perfo rmanc e alo cteri stics have been deter mined by [employer] [facility] [employer] [place], [place]. It has not been clear ed or appro vargas by the U.S. Food and Drug Admin istra tion. This assay has been valid ated pursu ant to the CLIA regul ation s and is used for clini jason purpo ses. Not Available [facility] [address] [address] [place], [address], 01/25/2023 05:54:01 01/13/20 23 01/25/2023 CATEC HOLAM NAYELI, FRACT , 24 HOUR URINE W/O CREAT norepinephri ne, 24 HR ur 29 mcg/2 4_h 15-100 This test was devel oped and its roni tical perfo rmanc e alo cteri stics have been deter mined by [employer] [facility] [employer] [facility], [place]. It has not been clear ed or appro vargas by the U.S. Food and Drug Admin istra tion. This assay has been valid ated pursu ant to the CLIA regul ation s and is used for clini jason purpo ses. Not Available [facility] [address] [address] [place], [address], 01/25/2023 05:54:01 01/13/20 23 01/25/2023 CATEC HOLAM NAYELI, FRACT , 24 HOUR URINE W/O CREAT calculated total (E+ne) 29 mcg/2 4_h 26-121 This test was devel oped and its roni tical perfo rmanc e alo cteri stics have been deter mined by [employer] [facility] [place]. It has not been clear ed or appro vargas by the U.S. Food and Drug Admin istra tion. This assay has been valid ated pursu ant to the CLIA regul ation s and is used for clini jason purpo ses. Not Available [facility] [address], [address], 01/25/2023 05:54:01 01/13/20 23 01/25/2023 CATEC HOLAM NAYELI, FRACT , 24 HOUR URINE W/O CREAT dopamine, 24 HR urine 162 mcg/2 4_h 52-480 This test was devel oped and its roni tical perfo rmanc e alo cteri stics have been deter mined by [employer] [facility] [employer] [place]. It has not been clear ed or appro vargas by the U.S. Food and Drug Admin istra tion. This assay has been valid ated pursu ant to the CLIA regul ation s and is used for clini jason purpo ses. Not Available [facility] [address], [address], 01/25/2023 05:54:01 01/13/20 23 01/25/2023 METAN EPHRI BARBARA, FRACT . LC/MS /MS, 24 HR URINE total volume 2800 mL Not Available [facility] [address] [place], [address], 01/25/2023 05:54:02 01/13/20 23 01/25/2023 METAN EPHRI BARBARA, FRACT . LC/MS /MS, 24 HR URINE metanephrine 187 mcg/2 4_h 58-203 This test was devel oped and its roni tical perfo rmanc e alo cteri stics have been deter mined by [employer] [facility] [place]. It has not been clear ed or appro vargas by the U.S. Food and Drug Admin istra tion. This assay has been valid ated pursu ant to the CLIA regul ation s and is used for clini jason purpo ses. Not Available [facility] [address] [address] [place], [address], 01/25/2023 05:54:02 01/13/20 23 01/25/2023 METAN EPHRI BARBARA, FRACT . LC/MS /MS, 24 HR URINE normetanephr ine 157 mcg/2 4_h 88-649 This test was devel oped and its roni tical perfo rmanc e alo cteri stics have been deter mined by [employer] [facility] [place]. It has not been clear ed or appro vargas by the U.S. Food and Drug Admin istra tion. This assay has been valid ated pursu ant to the CLIA regul ation s and is used for clini jason purpo ses. Not Available [facility] [address] [address] [place], [address], 01/25/2023 05:54:02 01/13/20 23 01/25/2023 METAN EPHRI BRABARA, FRACT . LC/MS /MS, 24 HR URINE [...] d for confi rmati on. Not Available [facility] [address], [address], 01/25/2023 05:54:02 02/27/2003/03/2023 COMPR EHENS FRANCO METAB OLIC PANEL glucose 100 mg/dL 65-99 high Fasti ng refer ence inter vicenta For someo ne witho ut known diabe antonio, a gluco se value betwe en 100 and 125 mg/dL is consi stent with predi abete s and shoul d be confi rmed with a follo w-up test. Not Available [address], [address], 03/03/2023 19:50:01 02/27/2003/03/2023 COMPR EHENS FRANCO METAB OLIC PANEL urea nitrogen (BUN) 12 mg/dL 7-25 normal Not Available [address], [address], 03/03/2023 19:50:01 02/27/20 23 03/03/2023 COMPR EHENS FRANCO METAB OLIC PANEL creatinine 1.28 mg/dL 0.60-1 .29 normal Not Available [address], [address], 03/03/2023 19:50:01 02/27/20 23 03/03/2023 COMPR EHENS FRANCO METAB OLIC PANEL eGFR 70 mL/mi n/1.7 3m2 > or = 60 normal Not Available [facility] [address], [address], 03/03/2023 19:50:01 02/27/2003/03/2023 COMPR EHENS FRANCO METAB OLIC PANEL BUN/creatini ne ratio SEE NOTE: (calc ) 6-22 Not Repor elsie: BUN and Creat inine are withi n refer ence range . Not Available [facility] [address], [address], 03/03/2023 19:50:01 02/27/20 23 03/03/2023 COMPR EHENS FRANCO METAB OLIC PANEL sodium 139 mmol/ L 135-14 6 normal Not Available [address], [address], 03/03/2023 19:50:01 02/27/20 23 03/03/2023 COMPR EHENS FRANCO METAB OLIC PANEL potassium 4.1 mmol/ L 3.5-5. 3 normal Not Available [address], [address], 03/03/2023 19:50:01 02/27/20 23 03/03/2023 COMPR EHENS FRANCO METAB OLIC PANEL chloride 105 mmol/ L 98-110 normal Not Available [address], [address], 03/03/2023 19:50:01 02/27/20 23 03/03/2023 COMPR EHENS FRANCO METAB OLIC PANEL carbon dioxide 26 mmol/ L 20-32 normal Not Available [address], [address], 03/03/2023 19:50:01 02/27/20 23 03/03/2023 COMPR EHENS FRANOC METAB OLIC PANEL calcium 9.2 mg/dL 8.6-10 .3 normal Not Available [address], [address], 03/03/2023 19:50:01 02/27/20 23 03/03/2023 COMPR EHENS FRANCO METAB OLIC PANEL protein, total 6.3 g/dL 6.1-8. 1 normal Not Available [address], [address], 03/03/2023 19:50:01 02/27/20 23 03/03/2023 COMPR EHENS FRANCO METAB OLIC PANEL albumin 4.6 g/dL 3.6-5. 1 normal Not Available [address], [address], 03/03/2023 19:50:01 02/27/20 23 03/03/2023 COMPR EHENS FRANCO METAB OLIC PANEL globulin 1.7 g/dL_ (calc ) 1.9-3. 7 low Not Available [address], [address], 03/03/2023 19:50:01 02/27/20 23 03/03/2023 COMPR EHENS FRANCO METAB OLIC PANEL albumin/glob ulin ratio 2.7 (calc ) 1.0-2. 5 high Not Available [address], [address], 03/03/2023 19:50:01 02/27/20 23 03/03/2023 COMPR EHENS FRANCO METAB OLIC PANEL bilirubin, total 0.5 mg/dL 0.2-1. 2 normal Not Available [address], [address], 03/03/2023 19:50:01 02/27/20 23 03/03/2023 COMPR EHENS FRANCO METAB OLIC PANEL alkaline phosphatase 45 U/L 36-130 normal Not Available [address], [address], 03/03/2023 19:50:01 02/27/20 23 03/03/2023 COMPR EHENS FRANCO METAB OLIC PANEL AST 12 U/L 10-40 normal Not Available [address], [address], 03/03/2023 19:50:01 02/27/20 23 03/03/2023 COMPR EHENS FRANCO METAB OLIC PANEL ALT 14 U/L 9-46 normal Not Available [address], [address], 03/03/2023 19:50:01 08/25/03/03/2023 TSI (THYR OID STIMU LATIN G IMMUN OGLOB ULIN) tsi <89 %_bas sophia <140 Thyro id stimu latin g immun oglob ulins (TSI) can engag e the TSH concierge receptionist tors resul ting in hyper thyro idism [...] for clini jason purpo ses. Not Available [facility] [address] [address], [place], [address], 03/03/2023 19:50:02 02/27/20 23 03/03/2023 THYRO ID PEROX IDASE ANTIB ODIES thyroid peroxidase antibodies 9 IU/mL <9 high Not Available [address], [address], 03/03/2023 19:50:04 02/27/20 23 03/03/2023 T4, FREE T4, free 1.2 NG/dL 0.8-1. 8 normal Not Available [address], [address], 03/03/2023 19:50:04 02/27/20 23 03/03/2023 TSH TSH 0.21 mIU/L 0.40-4 .50 low Not Available [address], [address], 03/03/2023 19:50:05 02/27/20 23 03/03/2023 T3, FREE T3, free 3.7 pg/mL 2.3-4. 2 normal Not Available [address], [address], 03/03/2023 19:50:06 10/15/19 23 elect niranjan garcia am No observ ation record ed. [id number] [facility] [address], [place], [address], 10/14/2022 10:04:15 Result Notes None recorded. Problems Name Problem SNOMED Code Status Onset Date Resolution Date Notes Provider Name and Address Organization Details Recorded Time Tobacco user 681101734 Active Not Available [facility] 3 04:53:57 Acne 55060610 Completed Not Available [facility] 3 04:53:57 Lumbar radiculo sarmad [id number] Completed [facility] Available [facility] 3 04:53:58 Follicul itis 70648064 Completed Not Available [facility] 3 04:53:58 Disorder of thyroid gland 02873209 Completed Not Available [facility] 3 04:53:58 Constipa tion 13568131 Completed Not Available [facility] 3 04:53:58 Acute sinusiti s 80528079 Completed Not Available [facility] 3 04:53:58 Spasm of back muscles 486037731 Completed Not Available [facility] 3 04:53:59 Abdomina l pain 43719880 Completed Not Available [facility] 3 04:53:59 Feeling stressed 748925581 Completed Not Available [facility] 3 04:53:59 Thyroid nodule 855041382 Active Not Available [facility] 3 04:53:59 Eruption [id number] Completed Not Available [facility] 3 04:53:59 Cut of head 047226342 Completed Not Available [facility] 3 04:54:00 Tenderne ss of thyroid 397194959 Completed Not Available [facility] 3 04:54:00 Ingrowin g nail [id number] Completed Not Available [facility] 3 04:54:02 Disorder of lumbar disc 503008138 Completed Not Available [facility] 3 04:54:02 Essentia l hyperten mary 52538084 Completed BRAD Ramírez [address], [address], [place], [address] , [employer] 3 10:24:58 Posterio r rhinorrh ea 09938280 Completed Not Available [facility] 3 04:54:03 Spinal stenosis 39647082 Completed Not Available [facility] 3 04:54:03 Palpitat ions 36651213 Completed BRAD Ramírez [address], [place], [address] , [place] 3 10:06:08 Upper abdomina l pain 48217937 Completed Not Available [facility] 3 04:54:04 Migraine 10919269 Active 2016 occular migraine s Not Available [facility] 3 04:54:01 Cervical lymphade nopathy 986361281 Active 2019 Not Available [facility] 3 04:53:57 Anxiety disorder [id number] Active 2019 Not Available [facility] 3 04:53:59 [place] ht 293834008 Active 2019 Not Available [facility] 3 04:53:59 Hyperten sive disorder 29833078 Active 2019 Not Available [facility] 3 04:54:01 Tobacco dependen ce syndrome 63386125 Active 2019 Not Available [facility] 3 04:54:05 Idiopath ic hypercal cemia 284824267 Active 2019 Not Available [facility] 3 04:53:58 Jaw pain 727641380 Active 2019 Not Available [facility] 3 04:54:00 Hyperthy roidism 60176570 Active 2019 Not Available [facility] 3 04:54:00 Fatigue 88667440 Active 2019 Not Available [facility] 3 04:54:04 Polyp of gallblad curtis 857038515 Active 2019 Not Available [facility] 3 04:53:58 Hyperlip idemia 49800915 Active 2019 Not Available [facility] 3 04:54:03 Pain of right elbow joint 63953442898 738525 Active 2019 Not Available [facility] 3 04:53:58 Depressi ve disorder 96960435 Active 2020 Not Available [facility] 3 04:54:00 Epigastr ic pain 48073859 Completed 202010/30/2020 Not Available [facility] 3 04:54:04 Seasonal allergic rhinitis 403379815 Active 2020 Not Available [facility] 3 04:54:00 History of cholecys tectomy 670327303 Active 2020 Not Available [facility] 3 04:54:02 Panic disorder 983549503 Active 2021 Not Available [facility] 3 04:54:01 COVID-19 714122252 Active 2021 Not Available [facility] 3 04:54:04 Hashimot o thyroidi tis 11907765 Active 2021 Not Available [facility] 3 04:53:59 Dyslipid emia 677230538 Active 2021 Not Available [facility] 3 04:54:01 Impaired fasting glycemia 827907191 Active 2021 Not Available [facility] 3 04:54:01 Anxiety 95559116 Active 2021 Not Available [facility] 3 04:54:02 Erectile dysfunct ion 036296806 Active 2021 Not Available [facility] 3 04:54:05 Insomnia 262969840 Active 2022 Not Available [facility] 3 04:53:58 [facility] hyperten mary 59416136 Active 2022 BRAD Ramírez [address], [address], [place], [address] , [employer] [facility] 3 10:24:58 Palpitat ions 41479029 Active 2022 BRAD Ramírez [address], [address], [place], [address] , [employer] [facility] [employer] [facility] 3 10:06:08 Chronic post-tra umatic stress disorder 755010304 Active 2022 BRAD Ramírez [address], [address], [place], [address] , [employer] [facility] [employer] [facility] 3 10:06:45 Thyroid dysfunct ion 605504459 Active 2022 BRAD Ramírez [address], [address], [place], [address] , [employer] [facility] [employer] 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 If you do not have internet access, please call to notify the sender and confirm that the information will be destroyed. Thank you for your attention and cooperation. [ID:[id number]][facility] [address] [place] [address] , Date: 01/01/2023RE: Christiano Beckham, : 1975, PT ID #[id number] Marquis [facility], I would like to thank you for [...] LABS 01/01/2023 - 08:30AM - [facility] Endo [place] Problems:Reviewed Problems Thyroid [...] DrumUSE TO TEST FOUR TIMES DAILY.05/30/21 filled MIGRATION.[id number] Accu-Chek Guide test stripsU QID03/19/20 filled MIGRATION.[id number] busPIRone 10 mg tabletTAKE 2 TABLETS BY MOUTH 3 TIMES A DAY12/10/22 filled surescripts lisinopriL 10 mg tabletTAKE 1 TABLET BY MOUTH EVERY DAY12/10/22 filled surescripts propranoloL 10 mg tabletTAKE 1 TABLET BY MOUTH THREE TIMES DAILY AFRLMS79/30/23 prescribed Za Velez MD tadalafiL 20 mg tabletTAKE 1 TABLET BY MOUTH ONCE DAILY NEEDED FOR 30 DAYS11/12/22 filled surescripts traZODone 100 mg tabletTAKE 1 TABLET BY MOUTH EVERY DAY AT NFMLPCP45/08/23 filled surescripts Mens Once daily multivitamin Family [...] he chooses to go outside of the [employer] system to obtain labwork he was advised [...] NEEDED Qty: (270) tablet Refills: 1 Pharmacy: [id number] Return to Office Za Velez MD for Follow Up 15 at [facility] Kiersten [place] on 04/29/2023 at 10:15 AM [place] [facility] [employer] [facility] 01/01/2023 12:37:10 Endocrinology Consult Note : [facility] [employer] [facility] [address], [place] [address]CVWKJChristiano (id #[id number], : 1975) Documents sent via [...] received this fax in error, please visit [email or web address] to notify the sender and confirm that the information will be destroyed. If you do not have internet access, please call to notify the sender and confirm that the information will be destroyed. Thank you for your attention and cooperation. [ID:[id number]][facility] [employer] [address] [place] [address] , Date: 03/09/2023RE: Christiano Beckham, : 1975, PT ID #[id number] Marquis [facility], I would like to thank you for [...] DrumUSE TO TEST FOUR TIMES DAILY.05/30/21 filled MIGRATION.[id number] Accu-Chek Guide test stripsU QID03/19/20 filled MIGRATION.[id number] busPIRone 10 mg tabletTAKE 2 TABLETS BY MOUTH 3 TIMES A DAY02/28/23 filled surescripts lisinopriL 10 mg tabletTAKE 1 TABLET BY MOUTH EVERY DAY02/28/23 filled surescripts propranoloL 10 mg tabletTAKE 1 TABLET BY MOUTH THREE TIMES DAILY BKWNRC47/30/23 filled surescripts tadalafiL 20 mg tabletTAKE 1 TABLET BY MOUTH ONCE DAILY NEEDED FOR 30 DAYS11/12/22 filled surescripts traZODone 100 mg tabletTAKE 1 TABLET BY MOUTH EVERY DAY AT OPITYXO80/27/23 filled surescripts Mens Once daily multivitamin Family [...] his/her PCP can refer patient to another loan clerk in the area. All questions /concerns answered and refills necessary at visit today.R73.01: Impaired fasting glucose Return to Office Patient will return to the office as needed [place] [employer] 03/09/2023 14:57:03 Procedures Surgical History Date Name Laterality Status Provider Name and Address Organization Details Recorded Time 07/05/19 21 Gallbladder Surgery completed Not Available [facility] 09/02/2022 04:42:56 Tonsillectomy completed Not Available [facility] 09/02/2022 04:42:56 [facility]end[facility] 09/02/2022 04:42:56 vasectomy completed Not Available [facility] 0 09/02/2022 04:42:56 Lasik completed Not Available [facility] 07/2022 04:42:56 Imaging Results None recorded. Procedure Notes None recorded. Medical Equipment None Reported. Allergies Allergen ID Allergen Name Allergen Category Reaction Reaction Severity Criticality Documentation Date Start Date Code Code System Note Provider Name and Address Organization Details Recorded Time 9007 Naprosyn medicatio n other Not available Not available 09/02/2022 2 RxNorm abdom inal pain Not Available [facility] 05:06:53 Medications Name Sig Start Date Stop [...] weight Body temperature Heart rate Oxygen saturation Systolic And Diastolic Provider Name and Address Organization Details Last Updated DateTime 3 172.72 cm 29.3 kg/m2 35292.3 3 g 97.7 [degF] 94 /min 98 % 144/96 mm[Hg] Nakia Noel MA [facility] [employer] [facility] 3 10:03:31 Date Recorded Body height Body mass index (BMI) Body weight Body temperature Heart rate Oxygen saturation Systolic And Diastolic Provider Name and Address Organization Details Last Updated DateTime 3 172.72 cm 29.3 kg/m2 70323.3 3 g 97.5 [degF] 104 /min 98 % 138/88 mm[Hg] Saima Randolph RN [facility] [employer] [facility] 3 09:53:04 Date Recorded Body height Body mass index (BMI) Body weight Body temperature Heart rate Oxygen saturation Systolic And Diastolic Provider Name and Address Organization Details Last Updated DateTime 3 172.72 cm 28.9 kg/m2 92920.5 5 g 97.1 [degF] 72 /min 97 % 142/90 mm[Hg] Saima Randolph RN [facility] [employer] [facility] 3 16:04:49 Date Recorded Body height Body mass index (BMI) Body weight Body temperature Heart rate Systolic And Diastolic Provider Name and Address Organization Details Last Updated DateTime 3 172.72 cm 27.9 kg/m2 35810.1 2 g 97.6 [degF] 77 /min 114/73 mm[Hg] NIRAV Noriega [facility] 3 09:40:59 Date Recorded Body height Body mass index (BMI) Body weight Body temperature Respiratory rate Heart rate Systolic And Diastolic Provider Name and Address Organization Details Last Updated DateTime 3 172.72 cm 29.8 kg/m2 22519.1 g 98.2 [degF] 16 /min 72 /min 120/70 mm[Hg] Charisma Kim RN [facility] 3 11:42:54 Social History Question Answer Notes LastModified by [employer] Details LastModified Time Tobacco Smoking Status Never Smoker Poppy Fabien arthur [employer] [facility] 09/08/2022 09:57:00 What Is Your Level Of Caffeine Consumption? Heavy MIGRATION.[id number] Information not available 09/02/2022 How Much Tobacco Do You Chew? None Former MIGRATION.[id number] 4655 Information not available 09/02/2022 In The 14 Days Before Symptom Onset, Have You Had Close Contact With A Laboratory-confirm ed COVID-19 While That Case Was Ill? No [email or web address] Information n ot available 09/08/2022 In The 14 Days Before Symptom Onset, Have You Had Close Contact With A Person Who Is Under Investigation For COVID-19 While That Person Was Ill? No [email or web address] Information not available 09/08/2022 What Type Of Diet Are You Following? REGULAR MIGRATION.104068 0184 Information not available 09/02/2022 Which Illicit Or Recreational Drugs Have You Used? None [email or web address] Information not available 09/08/2022 What Is Your Relationship Status? MIGRATION.146579 1203 Information not available 09/02/2022 Have You Recently Traveled Abroad? No Information not available 09/08/2022 Do You Have Any Dietary Restrictions? No [email or web address] Information not available 09/08/2022 Sex: Male Functional Status Question Answer Note LastModified by [employer] Details LastModified Time Do you use any illicit or recreational drugs? No [email or web address] Information not available 09/08/2022 Do you or have you ever used any other forms of tobacco or nicotine? No [email or web address] Information not available 09/08/2022 What is your level of alcohol consumption? None MIGRATION.342762 8543 Information not available 09/02/2022 Do you or have you ever used smokeless tobacco? 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 Never used electronic cigarettes [email or web address] Information not available 09/08/2022 What is your exercise level? Moderate MIGRATION.867996 9616 Information not available 09/02/2022 Mental Status None recorded. Family History Relationship Description Onset Age of this Age Resolved Age Notes LastModified by Organization Details LastModified Time Unspecified Relation Family history of malignant neoplasm [email or web address] Not available 2022 09:57:00 Mother Arthritis Not availabl e 09/08/2022 09:57:00 Maternal Grandmother Arthritis [email or web address] Not available 01/2023 09:57:00 Maternal Grandmother Hypertensive disorder MIGRATION.954 [id number] Not available 09/02/2022 04:43:04 Paternal Grandfather Malignant neoplastic disease [email or web address] Not available 2022 09:57:00 Maternal Grandfather Hypercholest erolemia MIGRATION.558 [id number] Not available 09/02/2022 04:43:04 Medical History Condition Response BLINDNESS N RHEUMATIC FEVER N KIDNEY STONES N BLADDER PROBLEMS N MRSA N OTHER # 1 N POLIO N LUNG DISEASE/DISORDER N RADIATION / CHEMOTHERAPY N COPD N Other # 2 N BLOOD DISEASES N SURGERY N EAR OR HEARING PROBLEMS N MUMPS N FEMALE PROBLEMS / INFECTIONS N BOWEL PROBLEMS N DEPRESSION (INCLUDING POST ) Y STROKE/TIA [...] INSOMNIA N HIGH CHOLESTEROL / HYPERLIPIDEMIA Y EYE PROBLEMS N HYPERTHYROIDISM N EATING DISORDER N NEUROLOGICAL PROBLEMS N EDEMA N CHRONIC PAIN SYNDROME N HYPOTHYROIDISM Y CONSTIPATION N CAROTID BLOCKAGE N BACK / NECK PROBLEMS N HAVE YOU BEEN HOSPITALIZED OR SEEN IN [facility] ER IN THE PAST YEAR [...] DISORDER N ALZHEIMER'S DISEASE N PAIN N DEMENTIA N HERPES N SEIZURES/EPILEPSY N HEADACHES/MIGRAINES N VASCULAR DISEASE N PACEMAKER N DIZZINESS N HEART DISEASE/HEART PROBLEMS N KIDNEY DISEASE N SCARLET FEVER N MULTIPLE SCLEROSIS N DEVELOPMENTAL OR BEHAVIORAL DISORDERS N MENTAL DISORDER/ILLNESS N CANCER: SPECIFY N CARDIAC ARRHYTHMIA N PNEUMONIA N ATRIAL FIBRILLATION N Gall Stones N PULMONARY EMBOLISM N AUTOIMMUNE DISEASE N Immunizations Vaccine Type Date Status Note Provider Nam e and Address Organization Details Recorded Time COVID-19, mRNA, LNP-S, PF, 30 mcg/0.3 mL dose 10/21/2020 completed Not Available [facility] 3 05:06:33 COVID-19, mRNA, LNP-S, PF, 30 mcg/0.3 mL dose 09/29/2020 completed Not Available [facility] 3 05:06:33 Tdap 12/20/2019 completed Not Available [facility] 09/02/2022 05:06:33 Influenza, split virus, quadrivalent, PF 04/03/2020 completed Not Available [facility] 3 05:06:34 Past Encounters Encounter ID Performer Location Encounter Start Date Encounter Closed Date Diagnosis/Indication Diagnosis SNOMED-CT Code Diagnosis ICD10 Code Diagnosis IMO Codes Diagnosis Note [id number] Rocky Parry MD [address] [address] 10/08/2020 00:00:00 10/08/2020 08:49:22 [id number] Rocky Parry MD [address] [address] 10/30/2020 00:00:00 10/30/2020 10:51:50 [id number] Rocky Parry MD [facility] [address] [place] [address] 12/11/2020 00:00:00 12/11/2020 10:20:08 [id number] MD DALI Hollingsworth[facility] [place] [address] [place] [address] 12/16/2020 00:00:00 12/16/2020 13:28:05 [id number] Rocky Parry MD [facility] [address] [place] [address] 12/17/2020 00:00:00 12/17/2020 12:30:43 [id number] Rocky Parry MD [facility] [address] [place] [address] 01/08/2021 00:00:00 01/08/2021 09:44:59 [id number] Rocky Parry MD [facility] [address] [facility] [place] [address] 04/25/2021 00:00:00 04/25/2021 11:22:30 [id number] Za Velez MD [facility] [place] [address] [place] [address] 05/06/2021 00:00:00 05/06/2021 18:20:09 [id number] Rocky Parry MD [facility] [address] [place] [address] 07/24/2021 00:00:00 07/24/2021 16:49:18 [id number] Rocky Parry MD [facility] [address] [place] [address] 07/28/2021 00:00:00 07/28/2021 15:33:30 [id number] [facility] [address] [place] [address] 08/20/2021 00:00:00 08/21/2021 13:59:54 [id number] [facility] [place] [address] [place] [address] 09/09/2021 00:00:00 09/09/2021 14:37:12 [id number] Janice Deleon MD [facility] [place] [place] [address] 11/18/2021 00:00:00 12/29/2021 08:41:28 [id number] Rocky Parry MD [facility] Family Practice [place] [address] [place] [address] 11/21/2021 00:00:00 11/21/2021 14:06:12 [id number] Za Velez MD [facility] [place] [address] [place] [address] 02/09/2022 00:00:00 02/09/2022 14:01:41 [id number] Janice Deleon MD [facility] Family Practice [address] [place] [address] 04/20/2022 00:00:00 04/20/2022 12:05:47 [id number] Za Velez MD [facility] [place] [address] [place] [address] 07/03/2022 00:00:00 07/03/2022 12:50:17 [id number] Monalisa Gu MD [facility] [place] [address] [place] [address] 08/05/2022 00:00:00 08/05/2022 11:21:08 [id number] BRAD Ramírez [facility] [place] [address] [place] [address] 09/08/2022 09:55:45 09/08/2022 10:30:11 Insomnia 629409075 G47.00 ChronicNo improvemen t with otc sleep [...] least 4 hours prior to bedtime. Anxiety 25800978 F41.9 ChronicImp roving with buspirone. Highly encouraged pt to consider counseling . Denies any SI/HI at this time. Pt to stop medication and be seen if s/e develop. Essential hypertension 14981997 I10 Not well controlled at this timeElevat ion may be due, in part, to personal stressorsE ncouraged pt to increase water intake, reduce caffeine intake, exercise regularly, decrease/e liminate sodium intake, work on weight loss and stress reductionW ill continue to monitor closelyLis inopril 10mg daily [id number] BRAD Ramírez [facility] [address] [facility] [facility] [place] [address] 10/14/2022 09:45:56 10/14/2022 10:47:56 Palpitations 97874507 R00.2 New problemSus pect sx are d/t uncontroll ed anxiety.EK G wnl in office today. Will check labs.Discu ssed s/s that warrant emergency evaluation . Anxiety 16539255 F41.9 Chronic,Im proved, but not to goal.Impro ving with buspirone, but will increase dose per patient request to 10mg-2 tabs TID for anxiety sx. . Highly encouraged pt to consider counseling . Denies any SI/HI at this time. Pt to stop medication and be seen if s/e develop. Insomnia 332324548 G47.0 0 Not well controlled despite good sleep hygiene.Pt states no improvemen t with melatonin, diphenhydr amine, Zquil, Unisom, or other otc sleep remedies.W ill give trial of temazepam. Reviewed controlled substance agreement requiremen ts. Discussed risk of abuse/misu se. Pt agrees to guard from theft.[email or web address] zepam 7.5mg QHS [id number] Monalisa Gu MD [facility] [address] [place] [address] 11/03/2022 15:58:29 11/03/2022 17:38:31 Palpitations 81571144 R00.2 No recurrence since last visit.Susp ect sx are d/t uncontroll ed anxiety.EK G wnl in office today.Labs normal except for thyroid function. Overactive thyroid may account for some of pts sx.Discuss ed s/s that warrant emergency evaluation . Anxiety 12314833 F41.9 Chronic,Im proved, but not to goal.Samanta nue buspirone 10mg-2 tabs TID for anxiety sx. . Highly encouraged pt to consider counseling . Denies any SI/HI at this time. Pt to stop medication and be seen if s/e develop. Insomnia 867523409 G47.0 0 Not well controlled despite good sleep hygiene.Pt states no improvemen t with melatonin, diphenhydr amine, Zquil, Unisom, or other otc sleep remedies. Also failed temazepam. Continue with trazdone 100mg QHS Hyperthyroidism 56324516 E05.90 RecurrentT SH 0.198 (10/14/22)P t has appt with Dr. Velez (endocrino logy) on 01/01/23. Pt case sent to Dr. Velez asking if she would like for us to resume pts methimazol e pending his upcoming appt with her. Awaiting response. [id number] MD ALKA Hollingsworth [place] [address] [place] [address] 01/01/2023 09:34:28 01/01/2023 10:20:06 Essential hypertension 76537090 I10 Send for 24 hour urinary cats/mets to screen for pheochromo cytoma-pat ient has systolic pressures that are sporadic in nature and patient having more anxiety. Gary thyroiditis 21 899610 E06.3 FT4/FT3 in range. Recommende d a [...] he chooses to go outside of the [facility] system to obtain labwork he was [...] in his case. He voiced understand ing. [id number] MD ALKA Hollingsworthn [place] [address] [place] [address] 03/09/2023 11:29:07 03/09/2023 13:45:08 Gary thyroiditis 10950602 E06.3 FT4/FT3 in range. TPO levels down. [...] cats/mets all normal. Impaired f asting glycemia 428416959 R73.01 Recommende d he incorporat e natural insulin prop and effects designer s such as pears, apples, cinnamon, josiah [...] Ya Member ID Guarantor Name 03/06/2023 1 [place] [id number] Christiano Beckham [id number] 40 Christiano Beckham Notes Date Note Type [...] foir the past 2 years Austin Marquis, SUBMARINE ELEMENT COORDINATOR [address] [facility], [address], [place], [address], [facility] [employer] 09/08/2022 20:00:16 10/14/2022 text/html 10/14/22: 1. Pt in office for 4 [...] foir the past 2 years Austin Marquis, SUBMARINE ELEMENT COORDINATOR [address] [facility], [place], [address], [facility] [employer] 10/14/2022 20:32:08 11/03/2022 text/html 11/03/22: 1. Pt [...] the past 2 years BRAD Ramírez [address], [place], [address], [employer] 11/03/2022 16:28:41 01/01/2023 text/html ROS as noted in the HPI 47 yo male comes in for follow up in management of hypothyroidism and weight management. Concerns of increased anxiety. last seen in Jun/telemedicine at that time we continued thyroid support [...] of 1.3 ng/dL Za Velez MD [address], [place], [address], [employer] 01/01/2023 12:32:36 03/09/2023 text/html ROS as noted in the HPI 47 yo male comes in for follow [...] normalchromogranin a normal Za Velez MD [address] [facility], [facility] [address], [place], [address], [place] [facility] [employer] 03/09/2023 13:01:34
[2025-06-13 06:18] LABS: Add Urine Microscopic? NO; Appearance Urine Clear (Clear); Glucose Urine UA Negative (Negative); Leukocyte Esterase Ur Negative LEU/UL (Negative); Nitrate Urine Negative (Negative); Specific Grav Ur 1.014 (1.001-1.035)
[2025-06-13 06:38] VITALS: BP 97/55; PULSE 82; RESP 13; O2SAT 98
[2025-06-13] MEDS: HYDROcodone/acetaminophen (*CRX) 5-325 MG TABLET 1 TAB PO (07:44)
[2025-06-13 07:45] VITALS: BP 122/75; PULSE 85; RESP 14; O2SAT 97
== END 2025-06-13 09:27 | disposition home or self-care (01) ==
PROVIDERS: Emergency Medicine; Emergency Provider Emergency Medicine; PCP Nurse Practitioner Family
DX: N50.811 Right testicular pain (principal); E06.3 Autoimmune thyroiditis; E78.00 Pure hypercholesterolemia, unspecified; M47.816 Spondylosis without myelopathy or radiculopathy, lumbar region; F41.9 Anxiety disorder, unspecified; F32.A Depression, unspecified; Z90.49 Acquired absence of other specified parts of digestive tract; Z79.899 Other long term (current) drug therapy
CPT/HCPCS: 76870; 81003; 87491; 87591; 93976; 99284; A9270

== ENCOUNTER 2025-06-30 09:46 | Emergency (ER) | payer BC, SELFPAY ==
--- OUTSIDE RECORDS SUMMARY | 2025-06-30 09:49 | XMS_ITS | Clinical Summary ---
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
--- OUTSIDE RECORDS SUMMARY | 2025-06-30 09:49 | XMS_ITS | Clinical Summary ---
Author Organization [facility] Address [address] [place] [id number] Care Team Providers Care Resource Conservation Manager Name Role Phone Izzy Fagan MD Primary Care Provider [phone] Social History Tobacco Use Types Packs/Day Years Used Date Smoking Tobacco: Never Assessed Sex and Gender Information Value Date Recorded Sex Assigned at Not on file Legal Sex Male 5:03 PM [employer] Gender Identity Not on file Sexual Orientation [...] age to complete this topic Care Teams Resource Conservation Manager Relationship Specialty Start Date End Date Izzy Fagan MD [address] [id number] PCP - General 09/01/06
--- OUTSIDE RECORDS SUMMARY | 2025-06-30 09:49 | XMS_ITS | Data Portability ---
Author Organization [place] - [employer], Main Office Address [address] [place] [address] Care Team Providers Care Church Administrator Name Role Phone AUSTIN MARQUIS Primary Care [...] 17:04:27 chromograni n A, serum 2022 023 [email or web address] Not available 3 10:12:13 metanephrin es, fractionate d, free, plasma 2022 023 [email or web address] Not available 3 14:15:34 CMP, serum or plasma [address] (Lab), [address] [place], [address], 3 11:47:07 TSH, serum or plasma [address] (Lab), [address] [place], [address], 3 11:47:50 CBC [address] (Lab), [address] [place], [address], 3 11:48:37 Referral None recorded. Procedures None recorded. Surgeries None recorded. Imaging electrocard iogram 2022 023 [email or web address] [facility] [address], [place], [address], 3 10:47:47 Medication Orders propranolol 10 mg tablet 2022 023 [facility] #82009, [address] [place], [place], [id number], 3 10:13:32 trazodone 100 mg tablet 2022 023 [facility] #52361, [address] [place], [place], [id number], 3 16:20:52 temazepam 7.5 mg capsule 2022 023 [email or web address] [facility] #40539, [address] [place], [place], [id number], 3 09:42:07 buspirone 10 mg tablet 2022 023 [email or web address] 5 [facility] #45316, [address] [facility], [place], [place], [id number], 3 20:23:44 trazodone 50 mg tablet 2022 023 [email or web address] 5 [facility] #74038, [address] [facility], [place], [place], [id number], 3 09:15:35 Patient TargetsNo targets recorded. Patient Instructions Encounter Date Encounter Id Patient Instructions Last Modified By Organization Details Last Modified Time 10/14/2022 [id number] Discussed requirements of the controlled substance agreement [...] being prescribed or dismissal from the practice. [email or web address] Not available 10/14/2022 20:31:43 Reason for Referral None Reported. Results Created Date Observation Date Name Description Value Unit Range Abnormal Flag Note LastModifiedBy Organization Detail LastModifiedTime 10/15/1910/14/2022 CBC W/O DIFFE RENTI AL white blood cells 4.7 x10'3 /uL 4.2-10 .8 Not Available [facility] (Lab) [address] [place], [address], 10/14/2022 18:53:35 10/15/19 23 10/14/2022 CBC W/O DIFFE RENTI AL red blood cells 5.20 x10'6 /uL 4.10-5 .80 Not Available [facility] (Lab) [address] [place], [address], 10/14/2022 18:53:35 10/15/19 23 10/14/2022 CBC W/O DIFFE RENTI AL hemoglobin 15.9 g/dL 13.2-1 7.0 Not Available [facility] (Lab) [address] [facility] [place], [address], 10/14/2022 18:53:35 10/15/19 23 10/14/2022 CBC W/O DIFFE RENTI AL hematocrit 47.4 % 39.3-5 0.0 Not Available [facility] (Lab) [address] [place], [address], 10/14/2022 18:53:35 10/15/19 23 10/14/2022 CBC W/O DIFFE RENTI AL mean red cell volume 91.2 fL 80.0-9 7.0 Not Available [facility] (Lab) [address] [place], [address], 10/14/2022 18:53:35 10/15/19 23 10/14/2022 CBC W/O DIFFE RENTI AL mean red cell hemoglobin 30.6 pg 27.0-3 3.0 Not Available [facility] (Lab) [address] [place], [address], 10/14/2022 18:53:35 10/15/19 23 10/14/2022 CBC W/O DIFFE RENTI AL mean RBC HGB concentratio n 33.5 g/dL 31.0-3 6.0 Not Available [facility] (Lab) [address] [place], [address], 10/14/2022 18:53:35 10/15/19 23 10/14/2022 CBC W/O DIFFE RENTI AL red cell distribution width 12.0 % 11.8-1 5.5 Not Available [facility] (Lab) [address] [place], [address], 10/14/2022 18:53:35 10/15/19 23 10/14/2022 CBC W/O DIFFE RENTI AL platelets 272 x10'3 /uL 150-40 0 Not Available [facility] (Lab) [address] [place], [address], 10/14/2022 18:53:35 10/15/19 23 10/14/2022 CBC W/O DIFFE MICHAEL AL mean platelet volume 9.7 fL 9.0-12 .4 Not Available [facility] (Lab) [address] [place], [address], 10/14/2022 18:53:35 10/15/19 23 10/14/2022 COMPR EHENS FRANCO METAB OLIC PANEL sodium 140 mmol/ L 137-14 5 Not Available [facility] (Lab) [address] [place], [address], 10/14/2022 19:21:11 10/15/19 23 10/14/2022 COMPR EHENS FRANCO METAB OLIC PANEL potassium 3.7 mmol/ L 3.5-5. 1 Not Available [facility] (Lab) [address] [place], [address], 10/14/2022 19:21:11 10/15/19 23 10/14/2022 COMPR EHENS FRANCO METAB OLIC PANEL chloride 103 mmol/ L 98-107 Not Available [facility] (Lab) [address] [place], [address], 10/14/2022 19:21:11 10/15/19 23 10/14/2022 COMPR EHENS FRANCO METAB OLIC PANEL carbon dioxide 21 mmol/ L 22-30 low Not Available [facility] (Lab) [address] [place], [address], 10/14/2022 19:21:11 10/15/19 23 10/14/2022 COMPR EHENS FRANCO METAB OLIC PANEL anion gap 19.7 mmol/ L 14-22 Not Available [facility] (Lab) [address] [place], [address], 10/14/2022 19:21:11 10/15/19 23 10/14/2022 COMPR EHENS FRANCO METAB OLIC PANEL glucose 85 mg/dL 70-99 Not Available [facility] (Lab) [address] [place], [address], 10/14/2022 19:21:11 10/15/19 23 10/14/2022 COMPR EHENS FRANCO METAB OLIC PANEL BUN 12 mg/dL 8-19 Not Available [facility] (Lab) [address] [place], [address], 10/14/2022 19:21:11 10/15/19 23 10/14/2022 COMPR EHENS FRANCO METAB OLIC PANEL creatinine 1.11 mg/dL 0.66-1 .25 Not Available [facility] (Lab) [address] [place], [address], 10/14/2022 19:21:11 10/15/19 23 10/14/2022 COMPR EHENS FRANCO METAB OLIC PANEL GFR >60 Refer ence Range : Naper ge GFR Healt hy Adult : >60 [...] calcu latshey is avail able on the [facility] websi te: https ://di acevedo.korey laird/pr ofess ional s/kdo qi/gf r_cal culat or Not Available [facility] (Lab) [address] [place], [address], 10/14/2022 19:21:11 10/15/1910/14/2022 COMPR EHENS FRANCO METAB OLIC PANEL alkaline phosphatase 57 U/L 38-126 Not Available [facility] (Lab) [address] [place], [address], 10/14/2022 19:21:11 10/15/19 23 10/14/2022 COMPR EHENS FRANCO METAB OLIC PANEL alanine aminotransfe rase 47 U/L 0-50 Not Available [facility] (Lab) [address] [place], [address], 10/14/2022 19:21:11 10/15/19 23 10/14/2022 COMPR EHENS FRANCO METAB OLIC PANEL aspartate aminotransfe rase 31 U/L 15-46 Not Available [facility] (Lab) [address] [place], [address], 10/14/2022 19:21:11 10/15/19 23 10/14/2022 COMPR EHENS FRANCO METAB OLIC PANEL bilirubin, total 1.40 mg/dL 0.20-1 .30 high Not Available [facility] (Lab) [address] [place], [address], 10/14/2022 19:21:11 10/15/19 23 10/14/2022 COMPR EHENS FRANCO METAB OLIC PANEL calcium 9.8 mg/dL 8.4-10 .2 Not Available [facility] (Lab) [address] [place], [address], 10/14/2022 19:21:11 10/15/19 23 10/14/2022 COMPR EHENS FRANCO METAB OLIC PANEL total protein 7.9 g/dL 6.3-8. 2 Not Available [facility] (Lab) [address] [place], [address], 10/14/2022 19:21:11 10/15/19 23 10/14/2022 COMPR EHENS FRANCO METAB OLIC PANEL albumin 5.2 g/dL 3.4-5. 0 high Not Available [facility] (Lab) [address] [place], [address], 10/14/2022 19:21:11 10/15/19 23 10/14/2022 COMPR EHENS FRANCO METAB OLIC PANEL globulin 2.7 g/dL 2.6-4. 2 Not Available [facility] (Lab) [address] [place], [address], 10/14/2022 19:21:11 10/15/19 23 10/14/2022 COMPR EHENS FRANCO METAB OLIC PANEL A/G ratio 1.9 ratio 1.0-2. 0 Not Available [facility] (Lab) [address] [place], [address], 10/14/2022 19:21:11 10/15/19 23 10/14/2022 TSH thyroid-stim ulating hormone 0.198 uIU/m L 0.465- 4.680 low Not Available [facility] (Lab) [address] [place], [address], 10/14/2022 20:05:06 12/29/19 23 12/30/2022 COMPR EHENS FRANCO METAB OLIC PANEL glucose 101 mg/dL 65-99 high Fasti ng refer ence inter vicenta For someo ne witho ut known diabe antonio, a gluco se value betwe en 100 and 125 mg/dL is consi stent with predi abete s and shoul d be confi rmed with a follo w-up test. Not Available [facility] [address] [address] [place], [address], 12/30/2022 12:05:36 12/29/19 23 12/30/2022 COMPR EHENS FRANCO METAB OLIC PANEL urea nitrogen (BUN) 15 mg/dL 7-25 normal Not Available [facility] [address] [address] [place], [address], 12/30/2022 12:05:36 12/29/19 23 12/30/2022 COMPR EHENS FRANCO METAB OLIC PANEL creatinine 1.20 mg/dL 0.60-1 .29 normal Not Available [facility] [place] [address] [place], [address], 12/30/2022 12:05:36 12/29/19 23 12/30/2022 COMPR EHENS RFANCO METAB OLIC PANEL eGFR 76 mL/mi n/1.7 3m2 > or = 60 normal The eGFR is based on the CKD-E PI 2020 equat ion. To calcu late the new eGFR from a previ ous Creat inine or Cysta tin C resul t, go to https ://di acevedo.korey laird/belen collier/ kdoqi /gfr% 5Fcal culat or Not Available [address] [address] [place], [address], 12/30/2022 12:05:36 12/29/19 23 12/30/2022 COMPR EHENS FRANCO METAB OLIC PANEL BUN/creatini ne ratio NOT APPLIC ABLE (calc ) 6-22 Not Available [facility] [address] [address] [place], [address], 12/30/2022 12:05:36 12/29/19 23 12/30/2022 COMPR EHENS FRANCO METAB OLIC PANEL sodium 139 mmol/ L 135-14 6 normal Not Available [facility] [address] [address] [place], [address], 12/30/2022 12:05:36 12/29/19 23 12/30/2022 COMPR EHENS FRANCO METAB OLIC PANEL potassium 4.0 mmol/ L 3.5-5. 3 normal Not Available [address], [address], 12/30/2022 12:05:36 12/29/19 23 12/30/2022 COMPR EHENS FRANCO METAB OLIC PANEL chloride 105 mmol/ L 98-110 normal Not Available [address], [address], 12/30/2022 12:05:36 12/29/19 23 12/30/2022 COMPR EHENS FRANCO METAB OLIC PANEL carbon dioxide 27 mmol/ L 20-32 normal Not Available [address], [address], 12/30/2022 12:05:36 12/29/19 23 12/30/2022 COMPR EHENS FRANCO METAB OLIC PANEL calcium 9.5 mg/dL 8.6-10 .3 normal Not Available [address], [address], 12/30/2022 12:05:36 12/29/19 23 12/30/2022 COMPR EHENS FRANCO METAB OLIC PANEL protein, total 6.7 g/dL 6.1-8. 1 normal Not Available [address], [address], 12/30/2022 12:05:36 12/29/19 23 12/30/2022 COMPR EHENS FRANCO METAB OLIC PANEL albumin 4.7 g/dL 3.6-5. 1 normal Not Available [address], [address], 12/30/2022 12:05:36 12/29/19 23 12/30/2022 COMPR EHENS FRANCO METAB OLIC PANEL globulin 2.0 g/dL_ (calc ) 1.9-3. 7 normal Not Available [address], [address], 12/30/2022 12:05:36 12/29/19 23 12/30/2022 COMPR EHENS FRANCO METAB OLIC PANEL albumin/glob ulin ratio 2.4 (calc ) 1.0-2. 5 normal Not Available [address], [address], 12/30/2022 12:05:36 12/29/19 23 12/30/2022 COMPR EHENS FRANCO METAB OLIC PANEL bilirubin, total 0.6 mg/dL 0.2-1. 2 normal Not Available [address], [address], 12/30/2022 12:05:36 12/29/19 23 12/30/2022 COMPR EHENS FRANCO METAB OLIC PANEL alkaline phosphatase 46 U/L 36-130 normal Not Available [facility] [employer] [address] [address] [place], [address], 12/30/2022 12:05:36 12/29/19 23 12/30/2022 COMPR EHENS FRANCO METAB OLIC PANEL AST 10 U/L 10-40 normal Not Available [address], [address], 12/30/2022 12:05:36 12/29/19 23 12/30/2022 COMPR EHENS FRANCO METAB OLIC PANEL ALT 11 U/L 9-46 normal Not Available [address], [address], 12/30/2022 12:05:36 12/29/19 23 12/30/2022 THYRO ID PEROX IDASE ANTIB ODIES thyroid peroxidase antibodies 13 IU/mL <9 high Not Available [address], [address], 12/30/2022 12:05:36 12/29/19 23 12/30/2022 T3, FREE T3, free 3.9 pg/mL 2.3-4. 2 normal Not Available [address], [address], 12/30/2022 12:05:37 12/29/19 23 12/30/2022 TSH+F REE T4 TSH 0.08 mIU/L 0.40-4 .50 low Not Available [address], [address], 12/30/2022 12:05:37 12/29/19 23 12/30/2022 TSH+F REE T4 T4, free 1.3 NG/dL 0.8-1. 8 normal Not Available [address], [address], 12/30/2022 12:05:37 01/07/20 23 01/12/2023 METAN EPHRI BARBARA, FRACT , FREE, LC/MS /MS, PLASM A metanephrine , free 49 pg/mL <=57 This test was devel oped and its roni tical perfo rmanc e alo cteri stics have been deter mined by [employer] [facility] [place], [place]. It has not been clear ed or appro vargas by the U.S. Food and Drug Admin istra tion. This assay has been valid ated pursu ant to the CLIA regul ation s and is used for clini jason purpo ses. Not Available [employer] [facility] [address] [address] [address] [place], [address], 01/12/2023 14:15:34 01/07/20 23 01/12/2023 METAN EPHRI BARBARA, FRACT , FREE, LC/MS /MS, PLASM A normetanephr ine, free 67 pg/mL <=148 This test was devel oped and its roni tical perfo rmanc e alo cteri stics have been deter mined by [employer] [facility] [place]. It has not been clear ed or appro vargas by the U.S. Food and Drug Admin istra tion. This assay has been valid ated pursu ant to the CLIA regul ation s and is used for clini jason purpo ses. Not Available [employer] [facility] [address] [address], [place], [address], 01/12/2023 14:15:34 01/07/20 23 01/12/2023 METAN EPHRI BARBARA, FRACT , FREE, LC/MS /MS, PLASM A total, free (MN+nmn) 116 pg/mL <=205 For addit ional infor luciano gallagher e refer to http: //[facility] patricia blackwell.que stdia gnost ics.c om/fa q/Met Fract Free (This link is being provi ded for infor matio nal/e ducat io infor matio nal/e ducat ional purpo ses only. ) Eden tions >4-fo ld upper refer ence range : stron gly sugge stive of a pheoc hromo cytom a(1). Eden tions >1- 4-fol d upper refer ence [...] mined by [facility] [place]. It has not been clear ed or appro vargas by the U.S. Food and Drug Admin istra tion. This assay has been valid ated pursu ant to the CLIA regul ation s and is used for clini jason purpo ses. Not Available [employer] [facility] [address] [address] , [place], [address], 01/12/2023 14:15:34 01/07/20 23 01/12/2023 CHROM OGRAN [...] not be inter prete d as absol brain evide nce of the prese nce or [...] for clini jason purpo ses. Not Available [facility] [address] [address] [place], [address], 01/12/2023 14:15:35 01/13/20 23 01/25/2023 CATEC HOLAM NAYELI, FRACT , 24 HOUR URINE W/O CREAT 24 HR urine volume 2800 mL/24 _h Not Available [facility] [address] [address] [place], [address], 01/25/2023 05:54:01 01/13/20 23 01/25/2023 CATEC HOLAM NAYELI, FRACT , 24 HOUR URINE W/O CREAT epinephrine, 24 HR urine see note Resul ts are below the repor table range for this roni te, which is 2.0 mcg/L . This test was devel oped and its roni tical perfo rmanc e alo cteri stics have been deter mined by [employer] [facility] [place], [place]. It has not been clear ed or appro vargas by the U.S. Food and Drug Admin istra tion. This assay has been valid ated pursu ant to the CLIA regul ation s and is used for clini jason purpo ses. Not Available [facility] [address] [address] [place], [address], 01/25/2023 05:54:01 01/13/20 23 01/25/2023 CATEC HOLAM NAYELI, FRACT , 24 HOUR URINE W/O CREAT norepinephri ne, 24 HR ur 29 mcg/2 4_h 15-100 This test was devel oped and its roni tical perfo rmanc e alo cteri stics have been deter mined by [employer] [facility] [place] [facility], [place]. It has not been clear ed or appro vargas by the U.S. Food and Drug Admin istra tion. This assay has been valid ated pursu ant to the CLIA regul ation s and is used for clini jason purpo ses. Not Available [facility] [address] [address] [place], [address], 01/25/2023 05:54:01 01/13/20 23 01/25/2023 CATEC HOLAM NAYELI, FRACT , 24 HOUR URINE W/O CREAT calculated total (E+ne) 29 mcg/2 4_h 26-121 This test was devel oped and its roni tical perfo rmanc e alo cteri stics have been deter mined by [employer] [facility] [place]. It has not been clear ed or appro vargas by the U.S. Food and Drug Admin istra tion. This assay has been valid ated pursu ant to the CLIA regul ation s and is used for clini jason purpo ses. Not Available [employer] [address], [address], 01/25/2023 05:54:01 01/13/20 23 01/25/2023 CATEC HOLAM NAYELI, FRACT , 24 HOUR URINE W/O CREAT dopamine, 24 HR urine 162 mcg/2 4_h 52-480 This test was devel oped and its roni tical perfo rmanc e alo cteri stics have been deter mined by [employer] [facility] [employer] [place], [place]. It has not been clear ed or appro vargas by the U.S. Food and Drug Admin istra tion. This assay has been valid ated pursu ant to the CLIA regul ation s and is used for clini jason purpo ses. Not Available [employer] [address], [address], 01/25/2023 05:54:01 01/13/20 23 01/25/2023 METAN EPHRI BARBARA, FRACT . LC/MS /MS, 24 HR URINE total volume 2800 mL Not Available [facility] [address] [place], [address], 01/25/2023 05:54:02 01/13/20 23 01/25/2023 METAN EPHRI BARBARA, FRACT . LC/MS /MS, 24 HR URINE metanephrine 187 mcg/2 4_h 58-203 This test was devel oped and its roni tical perfo rmanc e alo cteri stics have been deter mined by [employer] [facility] [place]. It has not been clear ed or appro vargas by the U.S. Food and Drug Admin istra tion. This assay has been valid ated pursu ant to the CLIA regul ation s and is used for clini jason purpo ses. Not Available [employer] [address] [address] [place], [address], 01/25/2023 05:54:02 01/13/20 23 01/25/2023 METAN EPHRI BARBARA, FRACT . LC/MS /MS, 24 HR URINE normetanephr ine 157 mcg/2 4_h 88-649 This test was devel oped and its roni tical perfo rmanc e alo cteri stics have been deter mined by [employer] [facility] [place]. It has not been clear ed or appro vargas by the U.S. Food and Drug Admin istra tion. This assay has been valid ated pursu ant to the CLIA regul ation s and is used for clini jason purpo ses. Not Available [employer] [address] [address] [place], [address], 01/25/2023 05:54:02 01/13/20 23 01/25/2023 METAN EPHRI [...] d for confi rmati on. Not Available [employer] [facility] [address], [address], 01/25/2023 05:54:02 02/27/2003/03/2023 COMPR EHENS FRANCO METAB OLIC PANEL glucose 100 mg/dL 65-99 high Fasti ng refer ence inter vicenta For someo ne witho ut known diabe antonio, a gluco se value betwe en 100 and 125 mg/dL is consi stent with predi abete s and shoul d be confi rmed with a follo w-up test. Not Available [address], [address], 03/03/2023 19:50:01 02/27/2003/03/2023 COMPR EHENS FRANCO METAB OLIC PANEL urea nitrogen (BUN) 12 mg/dL 7-25 normal Not Available [address], [address], 03/03/2023 19:50:01 02/27/20 23 03/03/2023 COMPR EHENS FRANCO METAB OLIC PANEL creatinine 1.28 mg/dL 0.60-1 .29 normal Not Available [address], [address], 03/03/2023 19:50:01 02/27/20 23 03/03/2023 COMPR EHENS FRANCO METAB OLIC PANEL eGFR 70 mL/mi n/1.7 3m2 > or = 60 normal Not Available [employer] [address], [address], 03/03/2023 19:50:01 02/27/2003/03/2023 COMPR EHENS FRANCO METAB OLIC PANEL BUN/creatini ne ratio SEE NOTE: (calc ) 6-22 Not Repor elsie: BUN and Creat inine are withi n refer ence range . Not Available [facility] [address], [address], 03/03/2023 19:50:01 02/27/20 23 03/03/2023 COMPR EHENS FRANCO METAB OLIC PANEL sodium 139 mmol/ L 135-14 6 normal Not Available [address], [address], 03/03/2023 19:50:01 02/27/20 23 03/03/2023 COMPR EHENS FRANCO METAB OLIC PANEL potassium 4.1 mmol/ L 3.5-5. 3 normal Not Available [address], [address], 03/03/2023 19:50:01 02/27/20 23 03/03/2023 COMPR EHENS FRANCO METAB OLIC PANEL chloride 105 mmol/ L 98-110 normal Not Available [address], [address], 03/03/2023 19:50:01 02/27/20 23 03/03/2023 COMPR EHENS FRANCO METAB OLIC PANEL carbon dioxide 26 mmol/ L 20-32 normal Not Available [address], [address], 03/03/2023 19:50:01 02/27/20 23 03/03/2023 COMPR EHENS FRANCO METAB OLIC PANEL calcium 9.2 mg/dL 8.6-10 .3 normal Not Available [address], [address], 03/03/2023 19:50:01 02/27/20 23 03/03/2023 COMPR EHENS FRANCO METAB OLIC PANEL protein, total 6.3 g/dL 6.1-8. 1 normal Not Available [address], [address], 03/03/2023 19:50:01 02/27/20 23 03/03/2023 COMPR EHENS FRANCO METAB OLIC PANEL albumin 4.6 g/dL 3.6-5. 1 normal Not Available [address], [address], 03/03/2023 19:50:01 02/27/20 23 03/03/2023 COMPR EHENS FRANCO METAB OLIC PANEL globulin 1.7 g/dL_ (calc ) 1.9-3. 7 low Not Available [address], [address], 03/03/2023 19:50:01 02/27/20 23 03/03/2023 COMPR EHENS FRANCO METAB OLIC PANEL albumin/glob ulin ratio 2.7 (calc ) 1.0-2. 5 high Not Available [address], [address], 03/03/2023 19:50:01 02/27/20 23 03/03/2023 COMPR EHENS FRANCO METAB OLIC PANEL bilirubin, total 0.5 mg/dL 0.2-1. 2 normal Not Available [address], [address], 03/03/2023 19:50:01 02/27/20 23 03/03/2023 COMPR EHENS FRANCO METAB OLIC PANEL alkaline phosphatase 45 U/L 36-130 normal Not Available [address], [address], 03/03/2023 19:50:01 02/27/20 23 03/03/2023 COMPR EHENS FRANCO METAB OLIC PANEL AST 12 U/L 10-40 normal Not Available [address], [address], 03/03/2023 19:50:01 02/27/20 23 03/03/2023 COMPR EHENS FRANCO METAB OLIC PANEL ALT 14 U/L 9-46 normal Not Available [address], [address], 03/03/2023 19:50:01 08/25/03/03/2023 TSI (THYR OID STIMU LATIN G IMMUN OGLOB ULIN) tsi <89 %_bas sophia <140 Thyro id stimu latin g immun oglob ulins (TSI) can engag e the TSH mohs surgeon/general dermatologist tors resul ting in hyper thyro idism [...] for clini jason purpo ses. Not Available [employer] [facility] [address] [address], [place], [address], 03/03/2023 19:50:02 02/27/20 23 03/03/2023 THYRO ID PEROX IDASE ANTIB ODIES thyroid peroxidase antibodies 9 IU/mL <9 high Not Available [address], [address], 03/03/2023 19:50:04 02/27/20 23 03/03/2023 T4, FREE T4, free 1.2 NG/dL 0.8-1. 8 normal Not Available [address], [address], 03/03/2023 19:50:04 02/27/20 23 03/03/2023 TSH TSH 0.21 mIU/L 0.40-4 .50 low Not Available [address], [address], 03/03/2023 19:50:05 02/27/20 23 03/03/2023 T3, FREE T3, free 3.7 pg/mL 2.3-4. 2 normal Not Available [address], [address], 03/03/2023 19:50:06 10/15/19 23 elect niranjan garcia am No observ ation record ed. [email or web address] [facility] [address], [place], [address], 10/14/2022 10:04:15 Result Notes None recorded. Problems Name Problem SNOMED Code Status Onset Date Resolution Date Notes Provider Name and Address Organization Details Recorded Time Tobacco user 505814576 Active Not Available [facility] 3 04:53:57 Acne 71147644 Completed Not Available [facility] 3 04:53:57 Lumbar radiculo sarmad [id number] Completed Not Available [facility] 3 04:53:58 Follicul itis [id number] Completed Not Available [facility] 3 04:53:58 Disorder of thyroid gland 04920537 Completed Not Available [facility] 3 04:53:58 Constipa tion 92887551 Completed Not Available [facility] 3 04:53:58 Acute sinusiti s 06724544 Completed Not Available [facility] 3 04:53:58 Spasm of back muscles 039772304 Completed Not Available [facility] 3 04:53:59 Abdomina l pain 49397858 Completed Not Available [facility] 3 04:53:59 Feeling stressed 172613998 Completed Not Available [facility] 3 04:53:59 Thyroid nodule 844458749 Active Not Available [facility] 3 04:53:59 Eruption 173504754 Completed Not Available [facility] 3 04:53:59 Cut of head 596237295 Completed Not Available [facility] 3 04:54:00 Tenderne ss of thyroid 879891801 Completed Not Available [facility] 3 04:54:00 Ingrowin g nail 221250043 Completed Not Available [facility] 3 04:54:02 Disorder of lumbar disc 934560892 Completed Not Available [facility] 3 04:54:02 [place] l hyperten mary 40172140 Completed BRAD Ramírez [address], [address], [place], [address] , [email or web address] 3 10:24:58 Posterio r rhinorrh ea 57370292 Completed Not Available [facility] [facility] 3 04:54:03 Spinal stenosis 52043409 Completed Not Available [facility] 3 04:54:03 Palpitat ions 00720838 Completed BRAD Ramírez [address], [address], [place], [address] , [email or web address] 3 10:06:08 Upper abdomina l pain 81895703 Completed Not Available [facility] 3 04:54:04 Migraine 26188919 Active 2016 occular migraine s Not Available [facility] 3 04:54:01 Cervical lymphade nopathy 784927732 Active 2019 Not Available [facility] 3 04:53:57 Anxiety disorder 313803736 Active 2019 Not Available [employer] 3 04:53:59 Overweig ht 315292949 Active 2019 Not Available [employer] 3 04:53:59 Hyperten sive disorder 57819648 Active 2019 Not Available [employer] 3 04:54:01 Tobacco dependen ce syndrome 24739182 Active 2019 Not Available [employer] 3 04:54:05 Idiopath ic hypercal cemia 446062718 Active 2019 Not Available [employer] 3 04:53:58 Jaw pain 313944443 Active 2019 Not Available [facility] 3 04:54:00 Hyperthy roidism 27117826 Active 2019 Not Available [facility] 3 04:54:00 Fatigue 18203990 Active 2019 Not [address] [facility] 3 04:54:04 Polyp of gallblad curtis 570064445 Active 2019 Not Available [facility] 3 04:53:58 Hyperlip idemia 04139896 Active 2019 Not [address] [facility] 3 04:54:03 Pain of right elbow joint 11034466815 043547 Active 2019 Not Available [facility] 3 04:53:58 Depressi ve disorder 63553937 Active 2020 Not Available [employer] 3 04:54:00 Epigastr ic pain 35751463 Completed 202010/30/2020 Not Available [facility] 3 04:54:04 Seasonal allergic rhinitis 191567517 Active 2020 Not Available [employer] 3 04:54:00 History of cholecys tectomy 518795114 Active 2020 Not Available [employer] 3 04:54:02 Panic disorder 844366824 Active 2021 Not Available [employer] 3 04:54:01 COVID-19 472663855 Active 2021 Not Available [facility] 3 04:54:04 Hashimot o thyroidi tis 61449505 Active 2021 Not Available [facility] 3 04:53:59 Dyslipid emia 567191510 Active 2021 Not Available [facility] 3 04:54:01 Impaired fasting glycemia 743880563 Active 2021 Not Available [facility] 3 04:54:01 Anxiety 71058445 Active [address] Not [address] [facility] 3 04:54:02 Erectile dysfunct ion 112318905 Active 2021 Not Available [facility] 3 04:54:05 Insomnia 803471709 Active 2022 Not Available [facility] 3 04:53:58 Essentia l hyperten mary 38548600 Active 2022 BRAD Ramírez [address], [address], [place], [address] , [employer] [facility] [employer] 3 10:24:58 Palpitat ions 20909889 Active 2022 BRAD Ramírez [address], [address], [place], [address] , [employer] [facility] [employer] [facility] 3 10:06:08 Chronic post-tra umatic stress disorder 760124327 Active 2022 BRAD Ramírez [address], [address], [place], [address] , [employer] [facility] [employer] [facility] 3 10:06:45 Thyroid dysfunct ion 912295623 Active 2022 BRAD Ramírez [address], [place], [address] , [employer] [facility] [employer] [facility] 3 12:29:50 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 If you do not have internet access, please call to notify the sender and confirm that the information will be destroyed. Thank you for your attention and cooperation. [ID:[id number]][facility] [employer] [address] [place] [address] , Date: 01/01/2023RE: Christiano Beckham, : 1975, PT ID #[id number] Marquis [facility], I would like to thank you for [...] FU ON LABS 01/01/2023 - 08:30AM - [facility] Endo [place] Problems:Reviewed Problems Thyroid nodule [...] DrumUSE TO TEST FOUR TIMES DAILY.05/30/21 filled MIGRATION.[id number] Accu-Chek Guide test stripsU QID03/19/20 filled MIGRATION.[id number] busPIRone 10 mg tabletTAKE 2 TABLETS BY MOUTH 3 TIMES A DAY12/10/22 filled surescripts lisinopriL 10 mg tabletTAKE 1 TABLET BY MOUTH EVERY DAY12/10/22 filled surescripts propranoloL 10 mg tabletTAKE 1 TABLET BY MOUTH THREE TIMES DAILY HHCIZX94/30/23 prescribed Za Velez MD tadalafiL 20 mg tabletTAKE 1 TABLET BY MOUTH ONCE DAILY NEEDED FOR 30 DAYS11/12/22 filled surescripts traZODone 100 mg tabletTAKE 1 TABLET BY MOUTH EVERY DAY AT BVBUGMM17/08/23 filled surescripts Mens Once daily multivitamin Family [...] he chooses to go outside of the [facility] system to obtain labwork he was advised [...] NEEDED Qty: (270) tablet Refills: 1 Pharmacy: [id number] Return to Office Za Velez MD for Follow Up 15 at [facility] Kiersten [place]dal[place] on 04/29/2023 at 10:15 AM [facility]I [place] [facility] [employer] [facility] 01/01/2023 12:37:10 Endocrinology Consult Note : [facility] [employer] [facility] [address], [place] [address]LNKQBChristiano (id #[id number], : 1975) Documents sent via [...] received this fax in error, please visit [email or web address] to notify the sender and confirm that the information will be destroyed. If you do not have internet access, please call to notify the sender and confirm that the information will be destroyed. Thank you for your attention and cooperation. [ID:[id number]][facility] [employer] [address] [place] [address] , Date: 03/09/2023RE: Christiano Beckham, : 1975, PT ID #[id number] Marquis [facility], I would like to thank you for [...] FU ON LABS 03/09/2023 - 11:30AM - [facility] Kiersten [place] Problems:Reviewed Problems [...] DrumUSE TO TEST FOUR TIMES DAILY.05/30/21 filled MIGRATION.[id number] Accu-Chek Guide test stripsU QID03/19/20 filled MIGRATION.[id number] busPIRone 10 mg tabletTAKE 2 TABLETS BY MOUTH 3 TIMES A DAY02/28/23 filled surescripts lisinopriL 10 mg tabletTAKE 1 TABLET BY MOUTH EVERY DAY02/28/23 filled surescripts propranoloL 10 mg tabletTAKE 1 TABLET BY MOUTH THREE TIMES DAILY QJPZCY38/30/23 filled surescripts tadalafiL 20 mg tabletTAKE 1 TABLET BY MOUTH ONCE DAILY NEEDED FOR 30 DAYS11/12/22 filled surescripts traZODone 100 mg tabletTAKE 1 TABLET BY MOUTH EVERY DAY AT CFZMRZZ99/27/23 filled surescripts Mens Once daily multivitamin Family [...] his/her PCP can refer patient to another metal room dental technician in the area. All questions /concerns answered and refills necessary at visit today.R73.01: Impaired fasting glucose Return to Office Patient will return to the office as needed [place] [facility] [employer] 03/09/2023 14:57:03 Procedures Surgical History Date Name Laterality Status Provider Name and Address Organization Details Recorded Time 07/05/19 21 Gallbladder Surgery completed Not Available [facility] 09/02/2022 04:42:56 Tonsillectomy completed Not Available [facility] 09/02/2022 04:42:56 Appendectomy completed [facility] 09/02/2022 04:42:56 vasectomy completed Not Available [facility] 0 09/02/2022 04:42:56 Lasik completed Not Available [facility] 07/2022 04:42:56 Imaging Results None recorded. Procedure Notes None recorded. Medical Equipment None Reported. Allergies Allergen ID Allergen Name Allergen Category Reaction Reaction Severity Criticality Documentation Date Start Date Code Code System Note Provider Name and Address Organization Details Recorded Time 9007 Naprosyn medicatio n other Not available Not available 09/02/2022 2 RxNorm abdom inal pain Not Available [facility] 05:06:53 Medications Name Sig Start Date Stop [...] Updated DateTime 3 172.72 cm 29.3 kg/m2 71003.3 3 g 97.7 [degF] 94 /min 98 % 144/96 mm[Hg] Nakia Noel MA [facility] [employer] [facility] 3 10:03:31 Date Recorded Body height Body mass index (BMI) Body weight Body temperature Heart rate Oxygen saturation Systolic And Diastolic Provider Name and Address Organization Details Last Updated DateTime 3 172.72 cm 29.3 kg/m2 26551.3 3 g 97.5 [degF] 104 /min 98 % 138/88 mm[Hg] Saima Randolph RN [facility] [employer] [facility] 3 09:53:04 Date Recorded Body height Body mass index (BMI) Body weight Body temperature Heart rate Oxygen saturation Systolic And Diastolic Provider Name and Address Organization Details Last Updated DateTime 3 172.72 cm 28.9 kg/m2 44743.5 5 g 97.1 [degF] 72 /min 97 % 142/90 mm[Hg] Saima Randolph RN [facility] [employer] [facility] 3 16:04:49 Date Recorded Body height Body mass index (BMI) Body weight Body temperature Heart rate Systolic And Diastolic Provider Name and Address Organization Details Last Updated DateTime 3 172.72 cm 27.9 kg/m2 36657.1 2 g 97.6 [degF] 77 /min 114/73 mm[Hg] NIRAV Noriega [facility] [employer] 3 09:40:59 Date Recorded Body height Body mass index (BMI) Body weight Body temperature Respiratory rate Heart rate Systolic And Diastolic Provider Name and Address Organization Details Last Updated DateTime 3 172.72 cm 29.8 kg/m2 75712.1 g 98.2 [degF] 16 /min 72 /min 120/70 mm[Hg] Charisma Kim RN [facility] [employer] 3 11:42:54 Social History Question Answer Notes LastModified by [employer] Details LastModified Time Tobacco Smoking Status Never Smoker Poppy Fabien arthur [employer] [facility] [employer] 09/08/2022 09:57:00 What Is Your Level Of Caffeine Consumption? Heavy MIGRATION.972554 [id number] Information not available 09/02/2022 How Much Tobacco Do You Chew? None Former MIGRATION.773125 9757 Information not available 09/02/2022 In The 14 Days Before Symptom Onset, Have You Had Close Contact With A Laboratory-confirm ed COVID-19 While That Case Was Ill? No [email or web address] Information n ot available 09/08/2022 In The 14 Days Before Symptom Onset, Have You Had Close Contact With A Person Who Is Under Investigation For COVID-19 While That Person Was Ill? No [email or web address] Information not available 09/08/2022 What Type Of Diet Are You Following? REGULAR MIGRATION.752589 3631 Information not available 09/02/2022 Which Illicit Or Recreational Drugs Have You Used? None [email or web address] Information not available 09/08/2022 What Is Your Relationship Status? MIGRATION.717680 4370 Information not available 09/02/2022 Have You Recently Traveled Abroad? No [email or web address] Information not available 09/08/2022 Do You Have Any Dietary Restrictions? No Information not available 09/08/2022 Sex: Male Functional Status Question Answer Note LastModified by [employer] Details LastModified Time Do you use any illicit or recreational drugs? No [email or web address] Information not available 09/08/2022 Do you or have you ever used any other forms of tobacco or nicotine? No Information not available 09/08/2022 What is your level of alcohol consumption? None MIGRATION.451902 2623 Information not available 09/02/2022 Do you or have you ever used smokeless tobacco? 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 Never used electronic cigarettes [email or web address] Information not available 09/08/2022 What is your exercise level? Moderate MIGRATION.547801 9468 Information not available 09/02/2022 Mental Status None recorded. Family History Relationship Description Onset Age of this Age Resolved Age Notes LastModified by Organization Details LastModified Time Unspecified Relation Family history of malignant neoplasm Not available 2022 09:57:00 Mother Arthritis [email or web address] Not availabl e 09/08/2022 09:57:00 Maternal Grandmother Arthritis [email or web address] Not available 01/2023 09:57:00 Maternal Grandmother Hypertensive disorder MIGRATION.312 [id number] Not available 09/02/2022 04:43:04 Paternal Grandfather Malignant neoplastic disease [email or web address] Not available 2022 09:57:00 Maternal Grandfather Hypercholest erolemia MIGRATION.152 [id number] Not available 09/02/2022 04:43:04 Medical History Condition [...] HAVE YOU BEEN HOSPITALIZED OR SEEN IN [facility] ER IN THE PAST YEAR ? N [...] mcg/0.3 mL dose 10/21/2020 completed Not Available [facility] 3 05:06:33 COVID-19, mRNA, LNP-S, PF, 30 mcg/0.3 mL dose 09/29/2020 completed Not Available [facility] 3 05:06:33 Tdap 12/20/2019 completed Not Available [facility] 09/02/2022 05:06:33 Influenza, split virus, quadrivalent, PF 04/03/2020 completed Not Available [facility] 3 05:06:34 Past Encounters Encounter ID Performer Location Encounter Start Date Encounter Closed Date Diagnosis/Indication Diagnosis SNOMED-CT Code Diagnosis ICD10 Code Diagnosis IMO Codes Diagnosis Note [id number] Rocky Parry MD [address] [address] 10/08/2020 00:00:00 10/08/2020 08:49:22 [id number] Rocky Parry MD [address] [address] 10/30/2020 00:00:00 10/30/2020 10:51:50 [id number] Rocky Parry MD [facility] [address] [place] [address] 12/11/2020 00:00:00 12/11/2020 10:20:08 [id number] MD DALI Hollingsworth[facility] [address] [place] [address] 12/16/2020 00:00:00 12/16/2020 13:28:05 [id number] Rocky Parry MD [facility] [address] [place] [address] 12/17/2020 00:00:00 12/17/2020 12:30:43 [id number] Rocky Parry MD [facility] [address] [place] [address] 01/08/2021 00:00:00 01/08/2021 09:44:59 [id number] Rocky Parry MD [facility] [address] [facility] [place] [address] 04/25/2021 00:00:00 04/25/2021 11:22:30 [id number] Za Velez MD [facility] [address] [place] [address] 05/06/2021 00:00:00 05/06/2021 18:20:09 [id number] Rocky Parry MD [facility] [address] [place] [address] 07/24/2021 00:00:00 07/24/2021 16:49:18 [id number] Rocky Parry MD [facility] [address] [place] [address] 07/28/2021 00:00:00 07/28/2021 15:33:30 [id number] [facility] [place] [address] [place] [address] 08/20/2021 00:00:00 08/21/2021 13:59:54 [id number] [facility] [address] [place] [address] 09/09/2021 00:00:00 09/09/2021 14:37:12 [id number] Janice Deleon MD [facility] [place] [address] [place] [address] 11/18/2021 00:00:00 12/29/2021 08:41:28 [id number] Rocky Parry MD [facility] [place] [address] [address] [facility] [place] [address] 11/21/2021 00:00:00 11/21/2021 14:06:12 [id number] Za Velez MD [facility] [place] [address] [place] [address] 02/09/2022 00:00:00 02/09/2022 14:01:41 [id number] Janice Deleon MD S[facility] [address] [place] [address] 04/20/2022 00:00:00 04/20/2022 12:05:47 [id number] Za Velez MD [facility] [place] [address] [place] [address] 07/03/2022 00:00:00 07/03/2022 12:50:17 [id number] Monalisa Gu MD [facility] [place] [address] [place] [address] 08/05/2022 00:00:00 08/05/2022 11:21:08 [id number] BRAD Ramírez [facility] [place] [address] [place] [address] 09/08/2022 09:55:45 09/08/2022 10:30:11 Insomnia 195176553 G47.00 ChronicNo improvemen t with otc sleep [...] least 4 hours prior to bedtime. Anxiety 47609937 F41.9 ChronicImp roving with buspirone. Highly encouraged pt to consider counseling . Denies any SI/HI at this time. Pt to stop medication and be seen if s/e develop. Essential hypertension 19594200 I10 Not well controlled at this timeElevat ion may be due, in part, to personal stressorsE ncouraged pt to increase water intake, reduce caffeine intake, exercise regularly, decrease/e liminate sodium intake, work on weight loss and stress reductionW ill continue to monitor closelyLis inopril 10mg daily [id number] BRAD Ramírez [facility] Primary Care [facility] [address] [place] [address] 10/14/2022 09:45:56 10/14/2022 10:47:56 Palpitations 82026543 R00.2 New problemSus pect sx are d/t uncontroll ed anxiety.EK G wnl in office today. Will check labs.Discu ssed s/s that warrant emergency evaluation . Anxiety 83247460 F41.9 Chronic,Im proved, but not to goal.Impro ving with buspirone, but will increase dose per patient request to 10mg-2 tabs TID for anxiety sx. . Highly encouraged pt to consider counseling . Denies any SI/HI at this time. Pt to stop medication and be seen if s/e develop. Insomnia 592257153 G47.0 0 Not well controlled despite good sleep hygiene.Pt states no improvemen t with melatonin, diphenhydr amine, Zquil, Unisom, or other otc sleep remedies.W ill give trial of temazepam. Reviewed controlled substance agreement requiremen ts. Discussed risk of abuse/misu se. Pt agrees to guard from theft.[email or web address] zepam 7.5mg QHS [id number] Monalisa Gu MD [facility] [address] [place] [address] 11/03/2022 15:58:29 11/03/2022 17:38:31 Palpitations 76816568 R00.2 No recurrence since last visit.Susp ect sx are d/t uncontroll ed anxiety.EK G wnl in office today.Labs normal except for thyroid function. Overactive thyroid may account for some of pts sx.Discuss ed s/s that warrant emergency evaluation . Anxiety 22716277 F41.9 Chronic,Im proved, but not to goal.Samanta nue buspirone 10mg-2 tabs TID for anxiety sx. . Highly encouraged pt to consider counseling . Denies any SI/HI at this time. Pt to stop medication and be seen if s/e develop. Insomnia 822847147 G47.0 0 Not well controlled despite good sleep hygiene.Pt states no improvemen t with melatonin, diphenhydr amine, Zquil, Unisom, or other otc sleep remedies. Also failed temazepam. Continue with trazdone 100mg QHS Hyperthyroidism 05900895 E05.90 RecurrentT SH 0.198 (10/14/22)P t has appt with Dr. Velez (endocrino logy) on 01/01/23. Pt case sent to Dr. Velez asking if she would like for us to resume pts methimazol e pending his upcoming appt with her. Awaiting response. [id number] MD ALKA Hollingsworth [place] [address] [place] [address] 01/01/2023 09:34:28 01/01/2023 10:20:06 Essential hypertension 23688635 I10 Send for 24 hour urinary cats/mets to screen for pheochromo cytoma-pat ient has systolic pressures that are sporadic in nature and patient having more anxiety. Gary thyroiditis 21 274081 E06.3 FT4/FT3 in range. Recommende d a [...] he chooses to go outside of the [facility] system to obtain labwork he was [...] in his case. He voiced understand ing. [id number] MD ALKA Hollingsworthn [employer] [address] [place] [address] 03/09/2023 11:29:07 03/09/2023 13:45:08 Gary thyroiditis 55678174 E06.3 FT4/FT3 in range. TPO levels down. [...] cats/mets all normal. Impaired f asting glycemia 231979754 R73.01 Recommende d he incorporat e natural insulin emergency management system director s such as pears, apples, cinnamon, josiah [...] Ya Member ID Guarantor Name 03/06/2023 1 [employer] [id number] Christiano Beckham [id number] Christiano Beckham Notes Date Note Type [...] foir the past 2 years Austin Marquis, DONKEY DOCTOR [address] [facility], [address], [place], [address], [facility] [employer] 09/08/2022 20:00:16 10/14/2022 text/html 10/14/22: 1. Pt [...] foir the past 2 years Austin Marquis, DONKEY DOCTOR [address] [facility], [address], [place], [address], [facility] [employer] 10/14/2022 20:32:08 11/03/2022 text/html 11/03/22: 1. Pt [...] the past 2 years BRAD Ramírez [address], [address], [place], [address], [email or web address] 11/03/2022 16:28:41 01/01/2023 text/html ROS as noted [...] of 1.3 ng/dL Za Velez MD [address], [place], [address], [employer] 01/01/2023 12:32:36 03/09/2023 text/html ROS as noted [...] normalchromogranin a normal Za Velez MD [address] [facility], [facility] [address], [place], [address], [place] [facility] [employer] 03/09/2023 13:01:34
--- NOTE | 2025-06-30 09:52 | ED_ITS ---
HPI - General Adult General Chief complaint: Upper Respiratory Infection Stated complaint: Sore Throat Time Seen by Provider: 06/30/25 09:52 Source: patient Mode of arrival: ambulatory Limitations: no limitations History of Present Illness HPI narrative: 49-year-old male patient presents to [facility] with complaints of sore throat the past 2 days. Denies fevers body aches or chills but has had some fatigue. Patient denies any congestion or runny nose. Denies chest pain or shortness of breath. Patient states he has been taking Tylenol and ibuprofen for his symptoms but states has not really helped the pain. Related Data Allergies Allergy/AdvReac Type Severity Reaction Status Date / Time naproxen (From Naprosyn) AdvReac Intermediate Abdominal Verified 06/30/25 10:01 Pain Review of Systems Review of Systems: CONSTITUTIONAL: Denies fever, chills, or sweats. positive fatigue EYES: Denies visual changes, redness, or discharge. ENT: Denies rhinorrhea, congestion, Positive sore throat, denies otalgia. CARDIOVASCULAR: Denies chest pain, palpitations, or edema. RESPIRATORY: Denies cough or dyspnea. GASTROINTESTINAL: Denies abdominal pain, nausea, vomiting, or diarrhea. GENITOURINARY: Denies dysuria or hematuria. SKIN: Denies rash or itching. MUSCULOSKELETAL: Denies back pain, joint pain, or myalgia. NEUROLOGIC: Denies headache, numbness, or weakness. PSYCHIATRIC: Denies anxiety or depression. [facility] Past Medical History Medical History Left varicocele Memory changes Erectile dysfunction Testicular pain, left BMI 31.0-31.9,adult Nightmares Depression Liver cyst Hemangioma of liver Abnormal ultrasound of liver Testicular pain BMI 27.0-27.9,adult Osteoarthritis of facet joint of lumbar spine severe bilaterally at L4-L5 and L5-S1 Hyperlipidemia Palpitation Transient right leg weakness Bulging of lumbar intervertebral disc Low back pain radiating to both legs Gary's disease Insomnia Encounter to establish care History of herniated intervertebral disc Anxiety Chronic cholecystitis without calculus Encounter for surgical aftercare following surgery on the digestive system Gallbladder polyp RUQ abdominal pain High cholesterol Hypertension History of thyroid disorder Surgical History Surgical History History of epidural steroid injection into lumbar spine Hx laparoscopic cholecystectomy 07/29/20 History of appendectomy History of elbow surgery ulnar nerve right elbow History of eye surgery History of tonsillectomy History of vasectomy Family History Family History Father Family history of malignant neoplasm Family history of suicide Depression Grandparent Family history of malignant neoplasm Hypertension Other Family history of mental disorder Family history of rheumatoid arthritis Social History Social History Smoking status: Never smoker Second hand tobacco smoke exposure: No Alcohol intake: never Substance use: never Substance use type: does not use Lack of Transportation: No Lack of Food: Never True Current Housing: I Have Housing Concerned About Future Housing: No Difficulty Paying Gas/Electric Bills: No Difficulty Paying for Meds: No Currently Unemployed: No Education: Bachelor's Degree Difficulty w/ Childcare or Family Care: No Living arrangements: with family Occupation/Education: occupation Additional occupation/education comments: [employer] Spiritual care concerns: No Comments At the time of my signature I agree with nursing past medical history, surgical, social, and family history. There is no relevant family history pertinent to the presenting complaint. Exam Narrative: GENERAL: Well-appearing, well-nourished, and in no acute distress. HEAD: Normocephalic, atraumatic. EYES: PERRLA and EOMI. ENT: Nares clear, no rhinorrhea or epistaxis. Mucous membranes moist. patient does have erythema noted to the postnasal area no tonsillar enlargement no exudates or lesions present. Bilateral TMs are clear no erythema or foreign bodies canal. NECK: Supple. No lymphadenopathy CHEST: Clear to auscultation. No respiratory distress. HEART: Regular rate and rhythm. No murmur heard. Normal peripheral pulses. ABDOMEN: Soft, nontender, nondistended, normal active bowel sounds. EXTREMITIES: Normal range of motion. No edema. SKIN: Warm, dry, no rash. NEURO: No focal deficits. Alert and oriented x3. Course Course Level of Care: Express Care Visit Vital Signs Vital signs: Vital Signs Temperature 35.7 C L 06/30/25 10:00 Pulse Rate 82 06/30/25 10:00 Respiratory Rate 18 06/30/25 10:00 Blood Pressure 121/66 12/27/25 10:00 Pulse Oximetry 99 06/30/25 10:00 Oxygen Delivery Room Air 06/30/25 10:00 Temperature 35.7 C L 06/30/25 10:00 Pulse Rate 82 06/30/25 10:00 Respiratory Rate 18 06/30/25 10:00 Blood Pressure 121/66 06/30/25 10:00 Pulse Oximetry 99 06/30/25 10:00 Oxygen Delivery Room Air 06/30/25 10:00 Vital signs reviewed. MDM MDM Narrative Medical decision making narrative: Discussed with patient that his point of care testing for strep, influenza and COVID are all negative today we will send a swab to lab for a strep culture and if that does come back positive that we will call in antibiotics at that time. For now this is most likely viral and encouraged continued [id number] treatment for pain including Tylenol and ibuprofen may also use warm salt water gargles, hot tea and honey and antihistamine to help decrease postnasal drip. Patient verbalized understanding denies any other questions or concerns at this time. Differential Diagnosis Differential Diagnosis: Differential diagnosis: Allergic rhinitis, chronic sinusitis, tonsillitis, acute sinusitis, infectious mononucleosis, seasonal influenza, pertussis, diphtheria, meningococcal disease, viral syndrome, viral bronchitis, RSV, COVID- 19 Lab Data Labs: Lab Results 06/30/25 Range/Units 10:04 POC Grp A Strep Screen Negative (Negative) Critical Care Time Critical Care Time Critical Care Time: No Discharge Plan Discharge Clinical Impression: Acute viral pharyngitis Patient Disposition: Home Condition: Stable Instructions: Antibiotic Form, Pharyngitis (ED) Additional Instructions: A sore throat can be caused by an infection from a virus or bacteria. Sore throat can also be caused by postnasal drip, allergies, and exposure to smoke. A viral sore throat last 3-4 days and cannot be treated with antibiotics. One type of sore throat virus, infectious mononucleosis (mono), can last for 3 weeks and older children. The germs that cause these infections are contagious and can be spread by coughing or sharing drinks or utensils. Contact her primary care physician or go to the ER if: Your trouble breathing or swallowing because her throat is swollen or sore. You're drooling because it hurts too much to swallow. You're painful lump in your throat go away after 5 days. You're fever is higher than 10 2??F or last longer than 3 days. You have confusion. You are blood in your throat. You're sore throat should feel better within 3-5 days without treatment if it is caused by virus. You may need the following: Ibuprofen or Tylenol as needed for pain or fever Gargle warm salt water and hot tea and honey will help soothe the throat. increase vitamin C intake to 1000 mg in the morning and 2000 mg in the evening. 50 mg as needed daily for 5 days and vitamin D3 daily Drink more liquids, cold or warm drinks may help soothe her throat. Humidifier in your room. Cough drops, ice, soft foods, or popsicles may help soothe her throat. A spoonful of honey could help with inflammation and soothe her throat. Wash her hands with soap and water, do not share food or drinks, throat away her toothbrush after 72 hours. Patient Language: [place] Prescriptions: No Action fluticasone propionate 50 mcg/actuation spray,suspension 2 spray intranasal DAILY Qty: 16 0RF Rx Instructions: administer into each nostril hydrocortisone 2.5 % cream 1 applic topical BID PRN (Reason: hemorrhoids) 10 Days Qty: 20 0RF tadalafil 20 mg tablet 20 mg PO DAILY PRN (Reason: Erectile Dysfunction) Qty: 30 2RF Rx Instructions: GoodRx naproxen 375 mg tablet 375 mg PO BID Qty: 14 0RF pantoprazole 20 mg tablet,delayed release (DR/EC) 20 mg PO HS Qty: 14 0RF trazodone 100 mg tablet 50 - 100 mg PO QHS PRN (Reason: insomnia) Qty: 90 3RF lisinopril 10 mg tablet 10 mg PO HS Qty: 30 11RF buspirone 10 mg tablet 20 mg PO TID Qty: 180 11RF eszopiclone [Lunesta] 3 mg tablet 3 mg PO QHS PRN (Reason: insomnia) Qty: 30 5RF Rx Instructions: GoodRX coupon methimazole 5 mg tablet 2.5 mg PO DAILY Qty: 90 0RF propranolol 10 mg tablet 30 mg PO Q12H Qty: 540 2RF Rx Instructions: hold of SBP is less than 100 or less than 50 atorvastatin [Lipitor] 10 mg tablet 10 mg PO DAILY Qty: 30 11RF Follow-up/Referrals: Chelsea Moseley APRN [Primary Care Provider, Family Practice] Time of Disposition: 10:13
[2025-06-30 10:00] VITALS: BP 121/66; PULSE 82; RESP 18; TEMP 35.7; O2SAT 99
[2025-06-30 10:06] LABS: EDSTREPNEGPOS1 Negative (Negative)
[2025-06-30 10:16] LABS: EDINFLUASCREEN Negative (Negative); EDINFLUBSCREEN Negative (Negative)
[2025-06-30 10:17] LABS: EDCOVIDSCREEN Negative (Negative)
== END 2025-06-30 10:29 | disposition home or self-care (01) ==
PROVIDERS: Emergency Provider Nurse Practitioner Family; PCP Nurse Practitioner Family
DX: J02.8 Acute pharyngitis due to other specified organisms (principal)
CPT/HCPCS: 87081; 87426; 87804; 87880; 99213; G0463